=== PATIENT | female | born 1950 ===

== ENCOUNTER 2021-06-01 16:05 | Inpatient (IN) | payer MEDICARE, SELFPAY ==
[2021-06-01] VITALS (13 sets, daily range): BP systolic 101–136; BP diastolic 66–81; PULSE 51–72; RESP 20–22; TEMP 35.7–36; O2SAT 86–98; BMI 38.5
--- NOTE | ~2021-06-01 | XR_ITS ---
XR chest 1V portable DATE: 06/20/2021 10:22 INDICATION: XR chest 1V portable DATE: 06/20/2021 10:22 INDICATION: Respiratory failure TECHNIQUE: Portable AP chest on 06/20/2021 at 1015 hours COMPARISON: 06/19/2021 portable AP chest at 0518 hours FINDINGS: ET tube in satisfactory position 3.6 cm above rosina. Extensive bilateral pulmonary infiltrates persist, most prominent in the right upper lobe, left mid a nd left lower lung and right lung base, with persistent air bronchograms in the lower lobes, especial ly on the left. No pleural effusion or pneumothorax is evident. Status post cholecystectomy. Diffuse osteopenia. IMPRESSION: Extensive patchy bilateral pulmonary infiltrates persist relatively unchanged since 06/29 Reviewed, dictated and finalized at [facility]. Reviewed, dictated and finalized at location A. IMPRESSION: Extensive patchy bilateral pulmonary infiltrates persist relatively unchanged since 06/29/2021
--- NOTE | ~2021-06-01 | XR_ITS ---
XR chest 1V portable 06/03/2021 09:33 Indication: Pneumonia. Respiratory distress. Procedure: AP portable chest Comparison: Comparison to multiple prior studies sequentially, with oldest reviewed study dated 06/01. Findings: Endotracheal tube tip 5.1 cm above the rosina. NG tube in the stomach. No significant alexis e to bilateral airspace disease, compatible with pneumonia. No pleural effusion or pneumothorax. PICC line tip in the SVC. No acute osseous abnormality. Impression: 1: No significant change to bilateral airspace disease, compatible with pneumonia. Reviewed, dictated and finalized at location A. Impression: 1: No significant change to bilateral airspace disease, compatible with pneumon ia.
--- NOTE | ~2021-06-01 | XR_ITS ---
EXAMINATION: XR chest 1V portable DATE: 06/21/2021 23:41 INDICATION: COVID-19 pneumonia. TECHNIQUE: A single frontal view of the chest was obtained. COMPARISON: Chest single view at 6:49 PM, 10:09 AM FINDINGS: Lung volumes are small. Again seen is relative elevation of right hemidiaphragm. There are airspace and interstitial opacities in all lung zones bilaterally. No pleural effusion or pneumothora x. The heart size is normal. The endotracheal tube tip is 9 mm above the rosina. A left upper extremi ty peripherally inserted central venous catheter (PICC) is seen with tip in left brachiocephalic vein . IMPRESSION: 1. Diffuse lung disease, likely stable given the difference in patient positioning, consistent with p neumonia versus acute respiratory distress syndrome (ARDS). 2. Endotracheal tube tip 9 mm above the rosina. 3. PICC tip in left brachiocephalic vein. Reviewed, dictated and finalized at location A. IMPRESSION: 1. Diffuse lung disease, likely stable given the difference in patient position ing, consistent with pneumonia versus acute respiratory distress syndrome (ARDS ). 2. Endotracheal tube tip 9 mm above the rosina. 3. PICC tip in left brachiocephalic vein.
--- NOTE | ~2021-06-01 | XR_ITS ---
XR abdomen NG/feed tube rechec INDICATION: Evaluate NG tube position. TECHNIQUE: Limited KUB perform for evaluating NG tube . COMPARISON: 06/01/2021 FINDINGS: NG tube tip in the stomach. Visualized bowel gas pattern is unremarkable.There are cholecy stectomy clips. There is bilateral airspace disease, compatible with pneumonia. IMPRESSION: 1: NG tube tip in the stomach. Reviewed, dictated and finalized at location A.
--- NOTE | ~2021-06-01 | US_ITS ---
EXAMINATION: US abdomen limited EXAM DATE: 06/02/2021 10:59 INDICATION: Elevated liver function tests. TECHNIQUE: Multiple grayscale and Doppler images of the abdomen right upper quadrant were obtained (b y a technologist who performed the scan) and subsequently reviewed. There is no prior study for rosas marti. FINDINGS: The pancreatic head and body are normal in appearance. The pancreatic tail is not visualized. There is echogenic liver parenchyma, hepatic steatosis. There are no focal liver lesions identified. Th ere is no evidence of intrahepatic biliary duct dilation. Portal venous flow was seen in the hepatop edal, normal direction and has normal Doppler waveform. No right-sided hydronephrosis. Common bile duct measures 4 mm, which is normal. The gallbladder fossa is unremarkable. IMPRESSION: 1. Hepatic steatosis. Reviewed, dictated and finalized at location B. IMPRESSION: 1. Hepatic steatosis.
--- NOTE | ~2021-06-01 | XR_ITS ---
EXAMINATION: XR chest 1V portable, XR abdomen obstructive series DATE: 06/10/2021 08:50 INDICATION: Abdominal distention. Respiratory failure. TECHNIQUE: 1. AP view of the chest was obtained. 2. AP supine and upright views of the abdomen and pelvis were obtained. COMPARISON: Chest radiograph dated 06/09/2021 FINDINGS: Chest: Endotracheal tube tip .9 cm above the rosina. Right upper extremity peripherally inserted central wesley ous catheter (PICC) tip at the brachiocephalic vein. Elevation of the right hemidiaphragm. No significant interval change in airspace opacities throughout the left lung and right upper lobe. No pleural effusion or pneumothorax. The cardiomediastinal silho uette is normal. Abdomen: Nasogastric tube with tip in proximal side port in the body of the stomach. Cholecystectomy clips in the right upper quadrant. Additional surgical clips in the deep pelvis. Moderate amount of gas and sm all amount of stool scattered throughout the colon. No dilated gas-filled small bowel to suggest obst ruction. No free intraperitoneal gas. IMPRESSION: 1. Lines and tubes in expected position as detailed above. 2. No significant change in bilateral lung disease consistent with pneumonia. Reviewed, dictated and finalized at location A. IMPRESSION: 1. Lines and tubes in expected position as detailed above. 2. No significant change in bilateral lung disease consistent with pneumonia.
--- NOTE | ~2021-06-01 | XR_ITS ---
EXAMINATION: XR chest 1V portable DATE: 06/08/2021 09:40 INDICATION: COVID pneumonia TECHNIQUE: frontal view of the chest was obtained. COMPARISON: Chest radiograph dated 06/07/2021 FINDINGS: Endotracheal tube tip 5.5 cm above the rosina. Right upper extremity peripherally inserted central ve nous catheter (PICC) tip at the right brachiocephalic vein. Chronic elevation of the right hemidiaphragm. Persistent airspace opacities in the left mid to lower lung zone and throughout the right upper lobe extending to the minor fissure. No pleural effusion or pneumothorax. The cardiomediastinal silhouette is normal. IMPRESSION: 1. Persistent bilateral lung disease consistent with pneumonia. Reviewed, dictated and finalized at location A.
--- NOTE | ~2021-06-01 | XR_ITS ---
XR chest 1V portable DATE: 06/19/2021 05:44 INDICATION: Respiratory failure TECHNIQUE: Portable AP chest on 06/29/2021 at 0518 hours COMPARISON: 06/30/2021 portable AP chest at 0805 hours FINDINGS: There are diffuse extensive bilateral pulmonary infiltrates with suggestion of mild improve ment since 06/18/2021. ET tube in satisfactory position 4.3 cm above rosina. Right upper extremity PIC catheter tip is situated near the confluence of the brachiocephalic veins. Surgical clips, right upper quadrant, consistent with cholecystectomy. IMPRESSION: Diffuse extensive bilateral pulmonary infiltrates, with suggestion of mild improvement si nce 06/2021 Reviewed, dictated and finalized at location A. IMPRESSION: Diffuse extensive bilateral pulmonary infiltrates, with suggestion of mild improvement since 06/2021
--- NOTE | ~2021-06-01 | XR_ITS ---
EXAMINATION: XR chest 1V portable DATE: 06/09/2021 08:54 INDICATION: Respiratory failure. TECHNIQUE: frontal view of the chest was obtained. COMPARISON: Chest radiograph dated 06/08/2021 FINDINGS: Endotracheal tube tip 6.2 cm above the rosina. Nasogastric tube with proximal side-port in the body o f the stomach and with distal tip collimated below the inferior margin of the field of imaging. Right upper extremity peripherally inserted central venous catheter (PICC) tip at the right brachiocephal ic vein. Elevation the right hemidiaphragm with decreased right lung volume. No significant change in bilatera l airspace opacities most prominent in the right upper lobe and left mid and lower lung zones. No ple ural effusion or pneumothorax. The cardiomediastinal silhouette is normal. Cholecystectomy clips in r ight upper quadrant. IMPRESSION: 1. No significant change in bilateral lung disease consistent with pneumonia. Reviewed, dictated and finalized at location A.
--- NOTE | ~2021-06-01 | XR_ITS ---
EXAMINATION: XR chest 1V portable DATE: 06/18/2021 08:11 INDICATION: Respiratory failure TECHNIQUE: frontal view of the chest was obtained. COMPARISON: Chest radiograph dated 06/17/21 FINDINGS: Endotracheal tube tip 6.1 cm above the rosina. Right upper extremity peripherally inserted central ve nous catheter (PICC) tip at the cephalad-most superior vena cava. No significant change in patchy airspace opacities throughout both lungs with right upper and left mi d and lower lung predominance. No pleural effusion or pneumothorax. Interval decrease in a now minima l amount of pneumomediastinum. Cardiomegaly. Cholecystectomy clips in right upper quadrant. IMPRESSION: 1. Unchanged extensive patchy bilateral lung disease consistent with COVID pneumonia. 2. Cardiomegaly. 2.. Decrease in now minimal pneumomediastinum. Reviewed, dictated and finalized at location D. IMPRESSION: 1. Unchanged extensive patchy bilateral lung disease consistent with COVID pneu monia. 2. Cardiomegaly. 2.. Decrease in now minimal pneumomediastinum.
--- NOTE | ~2021-06-01 | XR_ITS ---
EXAMINATION: XR chest 1V portable EXAM DATE: 06/05/2021 05:30 INDICATION: COVID PNA, intubated . TECHNIQUE: Portable AP frontal chest x-ray was obtained. Comparison is made to prior examination from 06/04/2021, 06/03, 06/02. FINDINGS: Endotracheal tube tip is 4-5 centimeters above the rosina. There is a nasogastric tube see n with tip collimated off the study, but below the left hemidiaphragm. Right-sided PICC line projecti ng over the SVC at the level of the rosina. There is diffuse bilateral pneumonia and/or edema, appears to be slowly progressing over the last sev eral days. There are no sizable pleural effusions. There is no pneumothorax suspected. The cardi omediastinal silhouette is prominent but magnified on this AP technique. The bones and soft tissues are unremarkable. IMPRESSION: 1. Line and tube(s) in position. 2. Diffuse airspace disease with mild interval progression. Reviewed, dictated and finalized at location A.
--- NOTE | ~2021-06-01 | XR_ITS ---
XR chest 1V portable DATE: 06/15/2021 05:39 INDICATION: Respiratory failure, Covid pneumonia TECHNIQUE: Portable upright AP chest on 06/15/2021 at 0508 hours COMPARISON: 06/14/2021 portable AP chest at 0820 hours FINDINGS: Extensive bilateral pulmonary infiltrates persist, relatively stable since yesterday. ET tube approximately 5.2 cm above rosina. NG tube in stomach. Right upper extremity PIC catheter tip situated in the right brachiocephalic vein near the proximal superior vena cava. Status post cholecystectomy. IMPRESSION: Extensive bilateral pulmonary infiltrates, not significantly changed since yesterday Reviewed, dictated and finalized at location A. IMPRESSION: Extensive bilateral pulmonary infiltrates, not significantly change d since yesterday
--- NOTE | ~2021-06-01 | XR_ITS ---
XR chest 1V portable DATE: 06/16/2021 13:23 INDICATION: Respiratory failure TECHNIQUE: Portable AP chest on 06/16/2021 at 1317 hours COMPARISON: 06/15/2021 portable AP chest at 0508 hours FINDINGS: ET tube is 8.1 cm above the rosina. [place] range is 2-5 cm. There are extensive patchy infiltrates scattered throughout both lungs, likely due to COVID pneumonia . Heart size appears normal. No pneumothorax. Status post cholecystectomy. IMPRESSION: Extensive relatively stable bilateral pulmonary infiltrates since 06/15/2021, consistent w ith COVID pneumonia ET tube tip is 8.1 cm above rosina; ideal range is 2-5 cm Reviewed, dictated and finalized at location A. IMPRESSION: Extensive relatively stable bilateral pulmonary infiltrates since 1 , consistent with COVID pneumonia ET tube tip is 8.1 cm above rosina; ideal range is 2-5 cm
--- NOTE | ~2021-06-01 | XR_ITS ---
EXAMINATION: XR chest 1V portable DATE: 06/17/2021 11:11 INDICATION: Respiratory failure TECHNIQUE: frontal view of the chest was obtained. COMPARISON: Chest radiograph dated 06/16/2021 FINDINGS: Endotracheal tube tip 7.2 cm above the rosina. Right upper extremity peripherally inserted central ve nous catheter (PICC) tip at the cephalad-most superior vena cava. Again seen are patchy airspace opacities throughout both lungs with right upper and left mid and lowe r lung predominance. No pleural effusion or pneumothorax. There has however been interval development of pneumomediastinum which extends cephalad into the neck on either side of the trachea. Borderline heart size accounting for AP technique. Cholecystectomy clips in right upper quadrant. IMPRESSION: 1. Interval development of pneumomediastinum which tracks into the neck. No evident pneumothorax. Fin dings were discussed with Mary, the nurse caring for the patient, at 11:55 AM. 2. Persistent extensive patchy bilateral lung disease consistent with COVID pneumonia. 3. Borderline heart size. Reviewed, dictated and finalized at location B. IMPRESSION: 1. Interval development of pneumomediastinum which tracks into the neck. No jeni dent pneumothorax. Findings were discussed with Mary, the nurse caring for th e patient, at 11:55 AM. 2. Persistent extensive patchy bilateral lung disease consistent with COVID pne umonia. 3. Borderline heart size.
--- NOTE | ~2021-06-01 | XR_ITS ---
EXAMINATION: XR chest PICC line DATE: 06/21/2021 19:10 INDICATION: Central line placement. TECHNIQUE: A single frontal view of the chest was obtained on 2 radiographs. COMPARISON: Chest single view at 10:09 AM FINDINGS: There is mild elevation of right hemidiaphragm. There are patchy airspace opacities in all lung zones bilaterally. No pleural effusion or pneumothorax. The heart size is normal. The endotrache al tube tip is 6 mm above the rosina. A left upper extremity peripherally inserted central venous cat heter (PICC) is seen with tip in the superior vena cava. IMPRESSION: 1. PICC tip in superior vena cava. 2. Endotracheal tube tip 6 mm above the rosina. I discussed this finding with the patient's nurse. 3. Worsened diffuse lung disease, consistent with pneumonia versus acute respiratory distress syndrom e (ARDS). Reviewed, dictated and finalized at location A. IMPRESSION: 1. PICC tip in superior vena cava. 2. Endotracheal tube tip 6 mm above the rosina. I discussed this finding with t he patient's nurse. 3. Worsened diffuse lung disease, consistent with pneumonia versus acute respir atory distress syndrome (ARDS).
--- NOTE | ~2021-06-01 | CT_ITS ---
EXAMINATION: CTA chest PE protocol EXAM DATE: 06/15/2021 17:26 INDICATION: Hypoxia TECHNIQUE: Spiral CTA of the chest (pulmonary arteries) was performed with 100 cc Omnipaque 350 intr avenous contrast injection. Images were acquired during the pulmonary arterial phase. Coronal maxi mum intensity projection 3D-reconstructions were created by the technologist on dedicated workstation . Axial, coronal and sagittal reformatted images were reviewed. The dose-length product (DLP) for t his examination was 935.49 mGy-cm. The exposure was tailored according to patient size (auto mA exp osure control), and iterative reconstruction (ASIR) was used as additional dose reduction technique. There is no prior study for comparison. FINDINGS: Endotracheal tube, right-sided PICC line in position. Gastrostomy tube. Pulmonary arteries are well opacified and without intraluminal filling defects. No thoracic aortic dissection. Diffus e airspace disease consistent with COVID pneumonia with more confluence at the dependent posterior as pects. There are no pleural or pericardial effusions. Tracheobronchial tree is patent. There is no mediastinal, hilar or axillary lymphadenopathy. There is no pneumothorax. There is cardiomegal y. There is mild coronary arterial calcification, arterial sclerosis. There are cholecystectomy cli ps. There is thoracic spondylosis without osteoblastic or osteolytic lesions identified. IMPRESSION: 1. Diffuse COVID pneumonia, more confluence posteriorly. 2. Cardiomegaly. 3. No pulmonary emboli. Reviewed, dictated and finalized at location A.
--- NOTE | ~2021-06-01 | XR_ITS ---
XR abdomen NG/feed tube insert INDICATION: Evaluate position. TECHNIQUE: Limited KUB perform for evaluating NG tube . COMPARISON: No prior studies for comparison. FINDINGS: NG tube tip in the stomach. Visualized bowel gas pattern is unremarkable. IMPRESSION: 1: NG tube tip in the stomach. Reviewed, dictated and finalized at location A.
--- NOTE | ~2021-06-01 | XR_ITS ---
EXAMINATION: XR chest 1V portable EXAM DATE: 06/07/2021 12:06 INDICATION: COVID pneumonia. Respiratory failure. TECHNIQUE: Portable AP frontal chest x-ray was obtained. Comparison is made to prior examination from 06/06 FINDINGS: Endotracheal tube tip is 5 centimeters above the rosina. There is a nasogastric tube seen with tip collimated off the study, but below the left hemidiaphragm. Right-sided PICC line projecting over the brachiocephalic confluence. There is diffuse bilateral pneumonia and/or edema, stable. There are no sizable pleural effusions. There is no pneumothorax suspected. The cardiomediastinal silhouette is prominent but magnified on this AP technique. The bones and soft tissues are unremarkable. IMPRESSION: 1. Right PICC line has retracted with tip now at brachiocephalic confluence. 2. Diffuse airspace disease, unchanged. Reviewed, dictated and finalized at location A.
--- NOTE | ~2021-06-01 | XR_ITS ---
XR chest 1V portable 06/04/2021 09:56 Indication: CovidPneumonia. Intubation. Procedure: AP portable chest Comparison: Comparison to multiple prior studies sequentially, with oldest reviewed study date2020. Findings: Endotracheal tube tip 4.4 cm above the rosina. NG tube in the stomach. There is bilateral a irspace disease, compatible with pneumonia. Findings have progressed since 06/02/2021. No significant effusion or pneumothorax. PICC line tip in the SVC. Impression: 1: Progression of bilateral airspace disease, compatible with pneumonia Reviewed, dictated and finalized at location A. Impression: 1: Progression of bilateral airspace disease, compatible with pneumonia
--- NOTE | ~2021-06-01 | US_ITS ---
EXAMINATION: US venous doppler [facility] DATE: 06/14/2021 12:39 INDICATION: Lower limb edema. TECHNIQUE: Grayscale ultrasound images without and with compression and Doppler ultrasound images of the bilateral lower extremity veins were obtained. COMPARISON: None. FINDINGS: The visualized portions of right common femoral vein, profunda (deep) femoral vein, femoral vein, pop liteal vein, peroneal veins, posterior tibial veins, and greater saphenous vein outflow are patent. The visualized portions of left common femoral vein, profunda femoral vein, femoral vein, popliteal v ein, peroneal veins, posterior tibial veins, and greater saphenous vein outflow are patent. IMPRESSION: 1. No deep venous thrombosis. Reviewed, dictated and finalized at location A.
--- NOTE | ~2021-06-01 | XR_ITS ---
XR chest 1V portable DATE: 06/21/2021 10:20 INDICATION: Covid pneumonia TECHNIQUE: AP portable chest on 06/21/2021 at 1014 hours COMPARISON: 06/20/2021 portable AP chest at 1015 hours FINDINGS: ET tube tip 2 cm above rosina. Persistent relatively stable bilateral pulmonary infiltrates involving particularly the right upper l obe, right lung base, left perihilar area and most prominently the left lower lobe with numerous air bronchograms. No pleural effusion or pneumothorax. Status post cholecystectomy. IMPRESSION: No significant change of extensive bilateral pulmonary infiltrates since 06/20/2021 Reviewed, dictated and finalized at location B.
--- NOTE | ~2021-06-01 | XR_ITS ---
EXAMINATION: XR chest 1V portable EXAM DATE: 06/06/2021 09:32 INDICATION: COVID PNA, intubated . TECHNIQUE: Portable AP frontal chest x-ray was obtained. Comparison is made to prior examination from 06/04, 06/05 FINDINGS: Endotracheal tube tip is 4 centimeters above the rosina. There is a nasogastric tube seen with tip collimated off the study, but below the left hemidiaphragm. Right-sided PICC line projecting over the SVC at the level of the rosina. There is diffuse bilateral pneumonia and/or edema, stable. There are no sizable pleural effusions. There is no pneumothorax suspected. The cardiomediastinal silhouette is prominent but magnified on this AP technique. The bones and soft tissues are unremarkable. IMPRESSION: 1. Line and tube(s) in position. 2. Diffuse airspace disease, stable. Reviewed, dictated and finalized at location A.
--- NOTE | ~2021-06-01 | XR_ITS ---
XR chest ET placement 06/01/2021 16:22 Indication: CovidPneumonia. Endotracheal tube check. Procedure: AP portable chest Comparison: No prior studies Findings: Endotracheal tube tip 2.3 cm above the rosina. There is bilateral airspace disease, compati ble with pneumonia. No significant effusion. No pneumothorax. Borderline heart size. No pneumothorax. Impression: 1: Extensive bilateral airspace disease, compatible with pneumonia. Reviewed, dictated and finalized at location A. Impression: 1: Extensive bilateral airspace disease, compatible with pneumonia.
--- NOTE | ~2021-06-01 | US_ITS ---
EXAMINATION: US art doppler w press [facility] EXAM DATE: 06/14/2021 15:17 INDICATION: Dusky toes. Hypertension. TECHNIQUE: Segmental pressures and plethysmographic and Doppler waveforms of the brachial and lower e xtremity arteries were obtained. There is no prior study for comparison. FINDINGS: Right and left brachial artery pressures of 126 mm Hg and 131 mm Hg, respectively, are concordant (no rmal difference <= 30 mmHg). Attempts were made at obtaining high cuff Doppler ratios but unable to p erform notation made due to body habitus and limited range of motion. RIGHT LEG: The ankle-brachial index (MATHEUS) is 1.10 (normal >= 0.9-1). The great toe-brachial index (TBI) is 0.42 (normal >= 0.65). The lower extremity ratios, segmental pressure gradients as follows; Dorsalis pedis: 1.10 (144 mmHg). Posterior tibial: 1.06 (139 mmHg). (Normal gradients <= 20-30 mmHg between adjacent levels on the same leg or the same levels on the two legs). Arterial waveforms are biphasic. LEFT LEG: The ankle-brachial index (MATHEUS) is 1.15 (normal >= 0.9-1). The great toe-brachial index (TBI) is 1.00 (normal >= 0.65). The lower extremity ratios, segmental pressure gradients as follows; Dorsalis pedis: 1.15 (151 mmHg). Posterior tibial: 1.12 (147 mmHg). (Normal gradients <= 20-30 mmHg between adjacent levels on the same leg or the same levels on the two legs). Arterial waveforms are monophasic PT, otherwise biphasic. IMPRESSION: 1. Right ankle-brachial index 1.10, normal. 2. Left ankle-brachial index 1.15, normal. 3. Segmental pressures as above. Reviewed, dictated and finalized at location A.
--- NOTE | ~2021-06-01 | XR_ITS ---
EXAMINATION: XR chest 1V portable DATE: 06/11/2021 10:08 INDICATION: Respiratory failure TECHNIQUE: frontal view of the chest was obtained. COMPARISON: Chest radiograph dated 06/10/2021 FINDINGS: Endotracheal tube tip 5.2 cm above the rosnia. Nasogastric tube extends below the left hemidiaphragm with distal tip collimated off the study. Right upper extremity peripherally inserted central venous catheter (PICC) tip at the right brachiocephalic vein. Again seen is elevation of the right hemidiaphragm. No significant interval change in bilateral airsp nash opacities relatively sparing the right lower and left upper lung zones. No pleural effusion or pn eumothorax. The cardiomediastinal silhouette is normal. Cholecystectomy clips in right upper quadrant . IMPRESSION: 1. No interval change in bilateral lung disease consistent with pneumonia. Reviewed, dictated and finalized at location A.
--- NOTE | ~2021-06-01 | XR_ITS ---
EXAMINATION: XR chest 1V portable DATE: 06/02/2021 09:11 INDICATION: COVID-19 pneumonia. TECHNIQUE: A single frontal view of the chest was obtained. COMPARISON: Chest single view 06/01/2021 FINDINGS: There are airspace opacities in all lung zones bilaterally, worst in right upper lobe and a t left lung base. No pleural effusion or pneumothorax. The heart size is normal. The endotracheal tub e tip is 5.4 cm above the rosina. A right upper extremity peripherally inserted central venous cathet er (PICC) is seen with tip in the superior vena cava. The nasogastric tube tip is beyond the inferior margin of the radiograph, but at least to the stomach. Surgical clips in the right upper quadrant ar e likely from cholecystectomy. IMPRESSION: 1. Stable diffuse lung disease, consistent with pneumonia. Reviewed, dictated and finalized at location A.
--- NOTE | ~2021-06-01 | XR_ITS ---
XR chest 1V portable 06/12/2021 09:22 Indication: Respiratory failure Procedure: AP portable chest Comparison: Comparison to multiple prior studies sequentially, with oldest reviewed study dated 06/08. Findings: Endotracheal tube tip 5.3 cm above the rosina. NG tube in the stomach. There is unchanged d iffuse bilateral airspace disease. No significant effusion or pneumothorax. Right subclavian PICC scotty e tip in the brachiocephalic vein. Impression: 1: Persistent diffuse bilateral airspace disease, most likely pneumonia. Edema less favored. Reviewed, dictated and finalized at location A. Impression: 1: Persistent diffuse bilateral airspace disease, most likely pneumonia. Edema less favored.
--- NOTE | ~2021-06-01 | XR_ITS ---
EXAMINATION: XR chest PICC line DATE: 06/01/2021 18:57 INDICATION: PICC line placement TECHNIQUE: frontal view of the chest was obtained. COMPARISON: Chest radiograph dated 06/01/2021 FINDINGS: Right upper extremity peripherally inserted central venous catheter (PICC) tip at the superior cavoa trial junction. Endotracheal tube tip 2.7 cm above the rosina. Nasogastric tube tip in proximal side port in the body of the stomach. Elevation the right hemidiaphragm. Unchanged airspace opacities in the right mid to upper and left mi d to lower lung zones. No pneumothorax. The cardiomediastinal silhouette is within normal limits for AP technique. Cholecystectomy clips in right upper quadrant. IMPRESSION: 1. Right M the PICC line tip at the superior cavoatrial junction. 2. Unchanged extensive bilateral airspace disease consistent with pneumonia. Reviewed, dictated and finalized at location A.
--- NOTE | ~2021-06-01 | XR_ITS ---
XR chest 1V portable DATE: 06/14/2021 08:28 INDICATION: Acute respiratory failure. Covid pneumonia. TECHNIQUE: Portable AP chest on 06/2021 at 0820 hours COMPARISON: 06/12/2021 portable AP chest at 0910 hours FINDINGS: ET tube in satisfactory position 3.6 cm above rosina. NG tube noted passing into stomach, d istal portion beyond the margin of the radiograph. Right upper extremity PIC catheter tip overlies the very proximal superior vena cava. Extensive patchy bilateral consolidation throughout both lungs, increased in severity since 06/12/2021 . IMPRESSION: Extensive patchy bilateral pulmonary consolidating infiltrates, increased in severity sin ce 06/12 Satisfactory position of ET tube Reviewed, dictated and finalized at location A. IMPRESSION: Extensive patchy bilateral pulmonary consolidating infiltrates, inc reased in severity since 06/12 Satisfactory position of ET tube
--- NOTE | 2021-06-01 16:21 | ADMGEN ---
This patient, Elizabeth Britt, was admitted to Intensive Care Unit-4. Patient/family oriented to hospital policies and general routines including ID bracelet, bed and alarms, visiting hours, pain management, procedures, bathroom and other care routines, personal items, smoking policy, room service/diet, and visiting hours. Information on how to activate the Rapid Response Team has been discussed. Patient/Family are encouraged to report perceived risks to care and to ask questions if they do not understand what they are told or what they should do.
--- NOTE | 2021-06-01 16:30 | PM.IMHP ---
H&P: HPI History of Present Illness Date/Time: 06/01/21 16:30 Chief Complaint: Acute respiratory failure secondary to COVID pneumonia. Narrative: This is a 70-year-old female with hypertension, hypothyroidism, breast cancer, and anxiety who is being directly admitted to the intensive care unit from [facility] for further treatment of acute hypoxic respiratory failure secondary to COVID-19 pneumonia. She is currently sedated and intubated and as such all of the following information is obtained via a review of her electronic medical records as well as discussions with her . She was admitted to the outside facility on 05/29/2021 after presenting with a ?COVID like illness? for nearly 3 weeks time with symptoms to include nonproductive cough and body aches. Several days prior to admission her symptoms worsen with progressive shortness of breath and the development of a fever up to 102? F. She was hypoxic on arrival to the emergency department and was found to have extensive pneumonia consistent with COVID [address] which was negative for pulmonary embolism. AST, ALT, and CPK were all elevated on admission at 254, 117, and 3171 respectively with the rest of her labs being relatively unremarkable. The patient was admitted to the medical floor and was started on azithromycin, dexamethasone, remdesivir, and IV fluids. Baricitinib was added yesterday given rapidly increasing oxygen requirements; she was requiring 9 L nasal cannula on admission but was switched to Airvo the following morning and a non-rebreather was added to that yesterday. She could not tolerate prone positioning but seemed to do better when lying on her side. Today she appeared to be fatigued and she was started on BiPAP at 100% FiO2 prior to initiation of transfer. Her IV fluids were discontinued yesterday and she was given a dose of IV Lasix today. [place] is about [place] hour drive from this hospital and given her condition the panel lay up worker felt it would be most appropriate to intubate the patient prior to transfer and she arrived to our facility without incident. While transferring from the stretcher to the bed she did have an episode of desaturation into the high 70s but rebounded quickly. Her temperature on arrival today was 96.3, pulse has been in the mid to upper 50s, and her blood pressures have been stable while sedated with propofol. The patient's was also hospitalized with COVID however he has been discharged and is recovering. She did not receive the COVID vaccine. Review of Systems Review of Systems: Unable to obtain given current clinical condition as above. [facility] Past Medical History Medical History (Updated 06/01/21 @ 18:13 by Selene Dubose PA-C) Anxiety and depression Breast cancer Hypertension Hypothyroidism Surgical History Surgical History (Updated 06/01/21 @ 17:34 by Selene Dubose PA-C) History of cholecystectomy History of lumpectomy of both breasts History of shoulder surgery History of tubal ligation Family History Family History (Updated 06/01/21 @ 17:34 by Selene Dubose PA-C) Other Cancer Heart disease Hypertension Social History Social History (Updated 06/01/21 @ 17:36 by Selene Dubose PA-C) Social History: The patient lives in [place], [place]. She is a former smoker and quit in 2003. No mention of alcohol or illicit substance use. Her , Cheyanne Britt, is her surrogate decision maker. Code status: Full code. Meds Home Medications and Allergies Home Medications Medication Instructions Recorded Confirmed Type levothyroxine 25 mcg PO DAILY 06/01/21 06/01/21 History lisinopril-hydrochlorothiazide 1 tablet PO DAILY 06/01/21 06/01/21 History sertraline 100 mg PO DAILY 06/01/21 06/01/21 History Allergies Allergy/AdvReac Type Severity Reaction Status Date / Time codeine Allergy Unknown Verified 06/01/21 16:18 latex Allergy Unknown Verified 06/01/21 16:18 morphine Aller
[2021-06-01 16:48] LABS: Alveolar/Arterial O2 Gradient 616.9 mmHg; Base Excess ABG 1.8 mEq/l (+/-2.0); Carboxyhemoglobin 0.3 % THb (0-2.0); Fractional Inspired Oxygen 100 %; Methemoglobin ABG 0.3 %THb (0-1.5); Oxygen Content ABG 17.8 %vol (16.0-22.0); Oxygen Saturation ABG 94.9 % (95.0-100.0); Oxyhemoglobin 92.5 % THb (90.0-100.0); PCO2 ABG 30.5 mmHg (35.0-45.0); PO2 ABG 65.6 mmHg (80.0-100.0); PO2 FiO2 Ratio Arterial Blood 0.66 %; Reduced Hemoglobin 6.9 %THb (0-5.0); Total Hemoglobin 13.7 g/dL (12.0-18.0)
[2021-06-01 17:00] LABS: Basophils Percent Auto 0.1 % (0.2-1.2); Hematocrit 36.7 % (37.0-47.0); Hemoglobin 12.5 g/dL (12.0-15.0); Immature Granulocyte Absolute 0.08 K/mm3 (0.00-0.031); Immature Granulocyte Percent A 1.1 % (0-0.5); Lymphocytes Absolute Auto 0.78 K/mm3 (0.9-3.2); Lymphocytes Percent Auto 11.1 % (18.3-44.2); Mean Corpuscular HGB Conc 34.1 g/dl (32-36); Mean Corpuscular Hemoglobin 29.9 pg (26-34); Mean Corpuscular Volume 87.8 fl (80-100); Mean Platelet Volume 10.2 fl (7.4-10.4); Monocytes Absolute Auto 0.4 K/mm3 (0.1-0.6); Monocytes Percent Auto 5.3 % (2.6-8.5); Neutrophils Absolute Auto 5.8 K/mm3 (1.3-6.7); Neutrophils Percent Auto 82.4 % (45.5-73.1); Platelet Count Result 245 k/mm3 (150-375); Red Blood Count 4.18 M/mm3 (4.2-5.4); Red Cell Distribution Width 12.9 % (11.5-14.5)
[2021-06-01 17:20] LABS: INR 1.1; Prothrombin Time 13.6 Seconds (11.1-14.7)
[2021-06-01 17:26] LABS: Alanine Aminotransferase 148 U/L (4-35); Albumin Level 3.3 g/dL (3.5-5.1); Alkaline Phosphatase 45 U/L (38-126); Anion Gap 4 mmol/L (8-16); Aspartate Amino Transferase 168 U/L (14-36); Bilirubin,Total 0.9 mg/dL (0.2-1.3); Blood Urea Nitrogen 25 mg/dL (7-17); CRP 2.6 mg/dL (<1.0); Calcium 8.3 mg/dL (8.4-10.2); Carbon Dioxide 31 mmol/L (22-30); Chloride 107 mmol/L (98-107); Estimated CRCL calculation 88 ml/min; Estimated Glomerular Filt Rate > 60; Glucose 145 mg/dL (65-110); Potassium 3.5 mmol/L (3.4-5.0); Sodium 142 mmol/L (137-145)
[2021-06-01 17:30] LABS: Lactate Dehydrogenase 2566 U/L (313-618)
[2021-06-01] MEDS: FENTANYL 2,500MCG/NS250ML(*CRX 2,500 MCG/250 ML BAG IV CONT (17:30)
[2021-06-01] MEDS: PROPOFOL IV EMULSION 100 ML 21.36 MG IV CONT (17:31)
[2021-06-01 17:34] LABS: Lactic Acid Reflex 1.4 mmol/L (0.7-2.1)
[2021-06-01 17:46] LABS: Triglycerides 149 mg/dL (<150)
[2021-06-01 17:49] LABS: pH ABG 7.513 (7.350-7.450)
[2021-06-01 17:50] LABS: Device VENTILATOR; Modified Allen's Test Unable to perform; Site Drawn RIGHT RADIAL
[2021-06-01 17:51] LABS: Arterial Blood Gas PEEP 10 cmH2O; Arterial Blood Gas Tidal Volume 450 ml; Arterial Blood Gas Vent Mode CMV; Arterial Blood Gas Ventilator rate 12 /MIN
[2021-06-01 18:01] LABS: Creatine Kinase 820 U/L (30-135)
--- NOTE | 2021-06-01 18:16 | ECG_ITS ---
Measurements Intervals [place] Rate: 52 P: 28 OR: 167 QRS: 18 QRSD: 86 T: 88 QT: 437 QTc: 407 Interpretive Statements SINUS BRADYCARDIA INCOMPLETE RIGHT BUNDLE BRANCH BLOCK CONSIDER INFERIOR INFARCT, AGE INDETERMINATE BORDERLINE T WAVE ABNORMALITY- HIGH LATERAL LEADS BASELINE ARTIFACT- I, II, III, AVR, AVF ABNORMAL ECG Electronically Signed On 06-01-2021 20:19:41 CDT by Rodney Blanco D.O.
[2021-06-01 18:20] LABS: Procalcitonin 0.1 ng/mL
[2021-06-01 18:31] LABS: Magnesium 2.2 mg/dL (1.6-2.3)
[2021-06-01] MEDS: ROCURONIUM BROMIDE 50 MG/5 ML VIAL IV PUSH (20:26)
[2021-06-01] MEDS: ENOXAPARIN 40 MG/0.4 ML SYRINGE SUB-Q (20:27)
[2021-06-01 21:31] LABS: Hepatitis B Surface Antigen Negative (Negative)
[2021-06-01 21:36] LABS: HAV RESULT Negative (Negative); Hepatitis B Core IgM Result Negative (Negative)
[2021-06-01 21:48] LABS: Hepatitis C Virus Antibody Negative (Negative)
[2021-06-01] MEDS: REMDESIVIR 100 MG/NS 250 ML 100 MG/250 ML BAG 250 MG IVPB (22:27)
[2021-06-01] MEDS: MINERAL OIL/WHITE PETROLATUM OINTMENT 1 APPLIC EACH EYE (22:27)
[2021-06-01] MEDS: CENTRAL LINE FLUSH 10 ML IV PUSH (22:29)
[2021-06-01] MEDS: PROPOFOL IV EMULSION 100 ML 15.26 MG IV CONT (23:15)
[2021-06-02] VITALS (36 sets, daily range): BP systolic 111–157; BP diastolic 63–94; PULSE 55–74; RESP 20–31; TEMP 36.1–37.1; O2SAT 91–100; BMI 39.4
[2021-06-02 01:33] LABS: Add Urine Microscopic? YES; Appearance Urine Clear (Clear); Bilirubin Urine Negative (Negative); Blood Urine 2+ (Negative); Color Urine Yellow (Yellow); Glucose Urine UA Negative (Negative); Ketones Urine Negative (Negative); Leukocyte Esterase Ur Negative LEU/UL (Negative); Mucus Urine Rare /lpf; Nitrate Urine Negative (Negative); Protein Urine 1+ mg/dL (Negative); RBC Urine 21-50 /hpf (0-2); Urobilinogen Urine Negative mg/dL (<2.0)
[2021-06-02 02:35] LABS: Specific Grav Ur 1.034 (1.001-1.035)
[2021-06-02 05:00] LABS: Alveolar/Arterial O2 Gradient 431.3 mmHg; Base Excess ABG 3.7 mEq/l (+/-2.0); Carboxyhemoglobin 0.3 % THb (0-2.0); Fractional Inspired Oxygen 80 %; HCO3 ABG 27.6 mEq/l (22.0-26.0); Methemoglobin ABG 0.3 %THb (0-1.5); Oxygen Content ABG 18.7 %vol (16.0-22.0); Oxygen Saturation ABG 97.8 % (95.0-100.0); Oxyhemoglobin 96.4 % THb (90.0-100.0); PCO2 ABG 39.3 mmHg (35.0-45.0); PO2 ABG 97.8 mmHg (80.0-100.0); PO2 FiO2 Ratio Arterial Blood 1.22 %; Site Drawn LEFT RADIAL; Total Hemoglobin 13.7 g/dL (12.0-18.0); pH ABG 7.464 (7.350-7.450)
[2021-06-02 05:01] LABS: Arterial Blood Gas PEEP 10 cmH2O; Arterial Blood Gas Tidal Volume 330 ml; Arterial Blood Gas Vent Mode CMV; Arterial Blood Gas Ventilator rate 22 /MIN; Device VENTILATOR; Modified Allen's Test Pass
[2021-06-02] MEDS: PROPOFOL IV EMULSION 100 ML 21.36 MG IV CONT (06:03)
[2021-06-02 06:05] LABS: Basophils Percent Auto 0.3 % (0.2-1.2); Hematocrit 40.4 % (37.0-47.0); Hemoglobin 13.3 g/dL (12.0-15.0); Immature Granulocyte Absolute 0.12 K/mm3 (0.00-0.031); Immature Granulocyte Percent A 1.3 % (0-0.5); Lymphocytes Absolute Auto 0.76 K/mm3 (0.9-3.2); Lymphocytes Percent Auto 7.9 % (18.3-44.2); Mean Corpuscular HGB Conc 32.9 g/dl (32-36); Mean Platelet Volume 10.5 fl (7.4-10.4); Monocytes Absolute Auto 0.5 K/mm3 (0.1-0.6); Monocytes Percent Auto 5.1 % (2.6-8.5); Neutrophils Absolute Auto 8.2 K/mm3 (1.3-6.7); Neutrophils Percent Auto 85.4 % (45.5-73.1); Platelet Count Result 258 k/mm3 (150-375); Red Blood Count 4.44 M/mm3 (4.2-5.4); Red Cell Distribution Width 12.9 % (11.5-14.5); White Blood Count 9.6 K/mm3 (4.5-10.0)
[2021-06-02] MEDS: CENTRAL LINE FLUSH 10 ML IV PUSH ×3 (06:05→21:11)
[2021-06-02] MEDS: LEVOTHYROXINE SODIUM INJ 100 MCG/5 ML VIAL 12.5 MCG IV PUSH (06:05)
[2021-06-02 06:14] LABS: INR 1.1; Prothrombin Time 13.8 Seconds (11.1-14.7)
[2021-06-02 06:17] LABS: D Dimer 0.67 ug/mL (<0.48)
[2021-06-02 06:23] LABS: Alanine Aminotransferase 141 U/L (4-35); Albumin Level 3.5 g/dL (3.5-5.1); Alkaline Phosphatase 55 U/L (38-126); Anion Gap 6 mmol/L (8-16); Aspartate Amino Transferase 129 U/L (14-36); Bilirubin,Total 0.9 mg/dL (0.2-1.3); Blood Urea Nitrogen 26 mg/dL (7-17); CRP 2.3 mg/dL (<1.0); Calcium 8.5 mg/dL (8.4-10.2); Carbon Dioxide 32 mmol/L (22-30); Chloride 106 mmol/L (98-107); Estimated CRCL calculation 90 ml/min; Estimated Glomerular Filt Rate > 60; Glucose 138 mg/dL (65-110); Magnesium 2.3 mg/dL (1.6-2.3); Phosphorus 2.7 mg/dL (2.5-4.5); Potassium 3.3 mmol/L (3.4-5.0); Sodium 144 mmol/L (137-145)
[2021-06-02 07:08] LABS: Lactate Dehydrogenase 2067 U/L (313-618)
[2021-06-02 07:55] LABS: Anisocytosis 1+ (NORMAL); Ovalocytes 1+ (NORMAL); Platelet Estimate Adequate (Adequate)
[2021-06-02] MEDS: MINERAL OIL/WHITE PETROLATUM OINTMENT 1 APPLIC EACH EYE ×2 (08:20→21:15)
--- NOTE | 2021-06-02 09:05 | WPDCNINT ---
Assessment and Plan Assessment and plan (1) Acute respiratory failure with hypoxia: Code(s): J96.01 - Acute respiratory failure with hypoxia Status: Acute Assessment and Plan: Secondary to extensive COVID pneumonia. Chest CTA on 05/29/2021 at outside facility was negative for pulmonary embolism. Currently sedated with propofol. Triglyceride level pending. Intubated on 06/01/2021 at outside facility. Currently on a tidal volume of 330, PEEP of 10, rate of 22, and 80% FiO2. A ABG reviewed-increase PEEP to 12 Chest x-ray reviewed Daily prone ventilation as tolerated (2) Pneumonia due to COVID-19 virus: Code(s): U07.1 - COVID-19; J12.82 - Pneumonia due to coronavirus disease 2018 Status: Acute Assessment and Plan: Patient has reportedly had COVID like symptoms for 3 weeks and she tested positive on 05/29/2021. She will complete a 5 day course of azithromycin today. Her procalcitonin was normal Dexamethasone (started 05/29) She will complete a 5 day course of remdesivir today, Continue baricitinib (started 05/31). Monitor inflammatory markers (3) Rhabdomyolysis: Code(s): M62.82 - Rhabdomyolysis Status: Acute Assessment and Plan: Patient was started on IV fluids for CPK of 4471 on admission. Total CK on our analyzer today is 820. Hold further IV fluids at this time to avoid over-hydration. Monitor CK in a.m. (4) Elevated LFTs: Code(s): R79.89 - Other specified abnormal findings of blood chemistry Status: Acute Assessment and Plan: Most likely secondary to COVID-19 +/- rhabdomyolysis. AST and ALT have trended down since admission. Check hepatitis panel and right upper quadrant ultrasound for completeness sake. (5) Hypothyroidism: Code(s): E03.9 - Hypothyroidism, unspecified Status: Acute Assessment and Plan: Continue levothyroxine and check TSH. (6) Hypertension: Code(s): I10 - Essential (primary) hypertension Status: Acute Assessment and Plan: Blood pressures are stable off antihypertensives. (7) Prolonged QT interval: Code(s): R94.31 - Abnormal electrocardiogram [ECG] [EKG] Status: Acute Assessment and Plan: QTc was 577 on EKG done at outside facility 2 days ago. EKG done here showed QTC of 407 Monitor Additional Plan DVT prophylaxis -Lovenox subQ q.12 hours Stress ulcer prophylaxis -at PPI Nutrition -start Tube Feeds Code Status - Full Code Total Critical Care Time - 35 minutes Due to a high probability of clinically significant, life threatening deterioration, the patient required my highest level of preparedness to intervene emergently and I personally spent this critical care time directly and personally managing the patient. This critical care time included obtaining a history; examining the patient; pulse oximetry; ordering and review of studies; arranging urgent treatment with development of a management plan; evaluation of patient's response to treatment; frequent reassessment; and discussions with other providers. It was exclusive of separately billable procedures and treating other patients and teaching time. Please see Assessment and Plan section and the rest of the note for further information on patient assessment and treatment English Tutor Consult Note Consult date: 06/02/21 Time Seen: 08:00 HPI: Elizabeth Britt is a 70 year old female with past medical history of hypertension, hypothyroidism, breast cancer, and anxiety who was directly admitted to the intensive care unit on 06/01 from [facility] for further treatment of acute hypoxic respiratory failure secondary to COVID-19 pneumonia. Patient is not vaccinated for COVID-19. She was admitted to the outside facility on 05/29/2021 after presenting with a ?COVID like illness? for nearly 3 weeks time with symptoms to include nonproductive cough and body aches. Several days prior to admission her sy
[2021-06-02] MEDS: PROPOFOL IV EMULSION 100 ML 24.41 MG IV CONT (09:56)
[2021-06-02] MEDS: POTASSIUM CHLORIDE 20 MEQ PACKET (FOR LIQUID) 40 MEQ FEED TUBE (10:26)
[2021-06-02] MEDS: BARICITINIB 2 MG TABLET 4 MG PO (10:27)
[2021-06-02] MEDS: FENTANYL 2,500MCG/NS250ML(*CRX 2,500 MCG/250 ML BAG IV CONT (10:28)
[2021-06-02 12:18] LABS: Glucose Point of Care 138 mg/dl (65-105)
[2021-06-02] MEDS: PROPOFOL IV EMULSION 100 ML 18.31 MG IV CONT ×2 (13:41→18:47)
[2021-06-02 18:01] LABS: Glucose Point of Care 143 mg/dl (65-105)
[2021-06-02] MEDS: REMDESIVIR 100 MG/NS 250 ML 100 MG/250 ML BAG 250 MG IVPB (21:11)
[2021-06-02] MEDS: ENOXAPARIN 40 MG/0.4 ML SYRINGE SUB-Q (21:15)
[2021-06-02 23:51] LABS: Glucose Point of Care 184 mg/dl (65-105)
[2021-06-03] VITALS (30 sets, daily range): BP systolic 109–137; BP diastolic 62–84; PULSE 55–70; RESP 22–28; TEMP 36.2–37.6; O2SAT 89–98
[2021-06-03] MEDS: PROPOFOL IV EMULSION 100 ML 15.26 MG IV CONT (00:27)
[2021-06-03 04:51] LABS: Alveolar/Arterial O2 Gradient 262.6 mmHg; Base Excess ABG 4.2 mEq/l (+/-2.0); Carboxyhemoglobin 0.3 % THb (0-2.0); Fractional Inspired Oxygen 55 %; HCO3 ABG 30.2 mEq/l (22.0-26.0); Methemoglobin ABG 0.4 %THb (0-1.5); Oxygen Content ABG 17.8 %vol (16.0-22.0); Oxygen Saturation ABG 94.3 % (95.0-100.0); Oxyhemoglobin 92.5 % THb (90.0-100.0); PCO2 ABG 51.1 mmHg (35.0-45.0); PO2 ABG 72.7 mmHg (80.0-100.0); PO2 FiO2 Ratio Arterial Blood 1.32 %; Reduced Hemoglobin 6.8 %THb (0-5.0); Total Hemoglobin 13.7 g/dL (12.0-18.0)
[2021-06-03 04:52] LABS: Arterial Blood Gas Ventilator rate 22 /MIN; Device VENTILATOR; Modified Allen's Test Pass
[2021-06-03 04:53] LABS: Arterial Blood Gas PEEP 12 cmH2O; Arterial Blood Gas Tidal Volume 330 ml; Arterial Blood Gas Vent Mode CMV
[2021-06-03 04:57] LABS: Site Drawn LEFT RADIAL
[2021-06-03] MEDS: CENTRAL LINE FLUSH 10 ML IV PUSH ×3 (05:45→20:38)
[2021-06-03] MEDS: LEVOTHYROXINE SODIUM INJ 100 MCG/5 ML VIAL 12.5 MCG IV PUSH (05:45)
[2021-06-03 05:51] LABS: Basophils Percent Auto 0.2 % (0.2-1.2); Hematocrit 40.3 % (37.0-47.0); Hemoglobin 13.1 g/dL (12.0-15.0); Immature Granulocyte Absolute 0.17 K/mm3 (0.00-0.031); Immature Granulocyte Percent A 1.9 % (0-0.5); Lymphocytes Absolute Auto 0.61 K/mm3 (0.9-3.2); Lymphocytes Percent Auto 6.9 % (18.3-44.2); Mean Corpuscular HGB Conc 32.5 g/dl (32-36); Mean Corpuscular Hemoglobin 30.3 pg (26-34); Mean Corpuscular Volume 93.1 fl (80-100); Mean Platelet Volume 10.6 fl (7.4-10.4); Monocytes Absolute Auto 0.4 K/mm3 (0.1-0.6); Monocytes Percent Auto 4.8 % (2.6-8.5); Neutrophils Absolute Auto 7.6 K/mm3 (1.3-6.7); Neutrophils Percent Auto 86.2 % (45.5-73.1); Platelet Count Result 226 k/mm3 (150-375); Red Blood Count 4.33 M/mm3 (4.2-5.4); Red Cell Distribution Width 13.1 % (11.5-14.5); White Blood Count 8.8 K/mm3 (4.5-10.0)
[2021-06-03 06:04] LABS: Magnesium 2.8 mg/dL (1.6-2.3)
[2021-06-03 06:05] LABS: INR 1.1; Prothrombin Time 13.6 Seconds (11.1-14.7)
[2021-06-03] MEDS: PROPOFOL IV EMULSION 100 ML 9.15 MG IV CONT ×2 (06:19→16:39)
[2021-06-03 06:56] LABS: Alanine Aminotransferase 149 U/L (4-35); Albumin Level 3.2 g/dL (3.5-5.1); Alkaline Phosphatase 57 U/L (38-126); Anion Gap 2 mmol/L (8-16); Aspartate Amino Transferase 123 U/L (14-36); Bilirubin,Total 0.6 mg/dL (0.2-1.3); Blood Urea Nitrogen 29 mg/dL (7-17); Calcium 8.7 mg/dL (8.4-10.2); Carbon Dioxide 35 mmol/L (22-30); Chloride 109 mmol/L (98-107); Estimated CRCL calculation 89 ml/min; Estimated Glomerular Filt Rate > 60; Glucose 159 mg/dL (65-110); Potassium 3.8 mmol/L (3.4-5.0); Sodium 146 mmol/L (137-145)
[2021-06-03] MEDS: SODIUM CHLORIDE 0.45% 500 ML 100 ML IV CONT (09:46)
[2021-06-03] MEDS: BARICITINIB 2 MG TABLET 4 MG PO (09:50)
[2021-06-03] MEDS: PANTOPRAZOLE SODIUM IV 40 MG VIAL IV PUSH (09:51)
[2021-06-03] MEDS: MINERAL OIL/WHITE PETROLATUM OINTMENT 1 APPLIC EACH EYE ×2 (09:51→20:37)
--- NOTE | 2021-06-03 11:03 | WPDINTPN ---
Progress Note: A&P Assessment and Plan (1) Acute respiratory failure with hypoxia: Code(s): J96.01 - Acute respiratory failure with hypoxia Status: Acute Assessment and Plan: Secondary to extensive COVID pneumonia. Chest CTA on 05/29/2021 at outside facility was negative for pulmonary embolism. Currently sedated with propofol. Triglyceride level was normal Intubated on 06/01/2021 at outside facility. Currently on a tidal volume of 330, rate of 22, ABG reviewed- PEEP is at 12 FiO2 is at 55% Chest x-ray reviewed - Advance ETT by 2 cm Daily prone ventilation as tolerated (2) Pneumonia due to COVID-19 virus: Code(s): U07.1 - COVID-19; J12.82 - Pneumonia due to coronavirus disease 2018 Status: Acute Assessment and Plan: Patient has reportedly had COVID like symptoms for 3 weeks and she tested positive on 05/29/2021. She has completed a 5 day course of azithromycin . Her procalcitonin was normal Dexamethasone (started 05/29) She has completed a 5 day course of remdesivir Continue baricitinib (started 05/31). Monitor inflammatory markers (3) Rhabdomyolysis: Code(s): M62.82 - Rhabdomyolysis Status: Acute Assessment and Plan: Patient was started on IV fluids for CPK of 4471 on admission. Which improved with IV fluids Further IV fluids were held patient was intubated. Will give a small amount of IV fluids today (4) Elevated LFTs: Code(s): R79.89 - Other specified abnormal findings of blood chemistry Status: Acute Assessment and Plan: Most likely secondary to COVID-19 +/- rhabdomyolysis. AST and ALT have trended down since admission. Viral hepatitis panel was negative Right upper quadrant ultrasound showed hepatic steatosis (5) Hypothyroidism: Code(s): E03.9 - Hypothyroidism, unspecified Status: Acute Assessment and Plan: Continue levothyroxine and check TSH. (6) Prolonged QT interval: Code(s): R94.31 - Abnormal electrocardiogram [ECG] [EKG] Status: Acute Assessment and Plan: QTc was 577 on EKG done at outside facility 2 days ago. EKG done here showed QTC of 407 Monitor (7) Hyponatremia: Code(s): E87.1 - Hypo-osmolality and hyponatremia Status: Acute Assessment and Plan: Increase free water flushes Will give 500 cc of half-normal saline as patient appears intravascularly dry due to drop in urine output Additional Plan DVT prophylaxis -Lovenox subQ q.12 hours Stress ulcer prophylaxis -at PPI Nutrition -continue Tube Feeds. Add Reglan Code Status - Full Code Total Critical Care Time - 31 minutes Due to a high probability of clinically significant, life threatening deterioration, the patient required my highest level of preparedness to intervene emergently and I personally spent this critical care time directly and personally managing the patient. This critical care time included obtaining a history; examining the patient; pulse oximetry; ordering and review of studies; arranging urgent treatment with development of a management plan; evaluation of patient's response to treatment; frequent reassessment; and discussions with other providers. It was exclusive of separately billable procedures and treating other patients and teaching time. Please see Assessment and Plan section and the rest of the note for further information on patient assessment and treatment Subjective Date/time seen: 06/03/21 11:03 Overnight events reviewed. Afebrile Continues to be on mechanical ventilation Was placed in prone position overnight On propofol for sedation Vitals acceptable Review of Systems Review of Systems: ROS unobtainable: Yes unobtainable due to endotracheal tube, unobtainable due to medical condition and unobtainable due to mental status Exam Narrative: General:female sedated and intubated. HEENT: Pupils equal and are reactive. Sclerae anicteric. Conjunctiva mildly injected.
--- NOTE | 2021-06-03 11:43 | PCDIET ---
ICU Rounding Note: Patient tolerating Vital 1.2 at 40mL/hr goal rate with 100mL water flush every 4 hours fairly well. RN reports residual of 300mL. MD adding Reglan. Last recorded weight is 102.2kg which is down from last review. Bowel Motility: No documented BM as of yet. Labs Reviewed: Glu (159), BUN (29), Cr (0.6), Na (146), Alb (3.2), Mg (2.8) Meds Noted: Olumiant, Reglan, Decadron, Fentanyl, Synthroid, Protonix, 100mL bolus of 1/2NS Additional Notes: No documented skin breakdown. Following daily in ICU rounds. Assessing/reassessing every Monday and Monday.
[2021-06-03] MEDS: METOCLOPRAMIDE HCL 10 MG/10 ML SOLN UDC FEED TUBE ×2 (12:48→16:37)
[2021-06-03 12:58] LABS: Glucose Point of Care 138 mg/dl (65-105)
[2021-06-03 17:35] LABS: Glucose Point of Care 159 mg/dl (65-105)
[2021-06-03] MEDS: ENOXAPARIN 40 MG/0.4 ML SYRINGE SUB-Q (20:37)
[2021-06-03] MEDS: FENTANYL 2,500MCG/NS250ML(*CRX 2,500 MCG/250 ML BAG 7.5 MCG IV CONT (21:53)
[2021-06-04] VITALS (34 sets, daily range): BP systolic 101–143; BP diastolic 60–94; PULSE 54–78; RESP 20–26; TEMP 36.3–37.9; O2SAT 92–98
[2021-06-04] MEDS: METOCLOPRAMIDE HCL 10 MG/10 ML SOLN UDC FEED TUBE ×4 (00:09→17:48)
[2021-06-04] MEDS: PROPOFOL IV EMULSION 100 ML 9.15 MG IV CONT ×2 (00:28→12:09)
[2021-06-04 00:33] LABS: Glucose Point of Care 130 mg/dl (65-105)
[2021-06-04 05:14] LABS: Alveolar/Arterial O2 Gradient 449.5 mmHg; Base Excess ABG 2.8 mEq/l (+/-2.0); Carboxyhemoglobin 0.3 % THb (0-2.0); Fractional Inspired Oxygen 90 %; HCO3 ABG 27.4 mEq/l (22.0-26.0); Methemoglobin ABG 0.4 %THb (0-1.5); Oxygen Content ABG 18.8 %vol (16.0-22.0); Oxyhemoglobin 97.2 % THb (90.0-100.0); PCO2 ABG 41.9 mmHg (35.0-45.0); PO2 ABG 149.3 mmHg (80.0-100.0); PO2 FiO2 Ratio Arterial Blood 1.66 %; Reduced Hemoglobin 2.1 %THb (0-5.0); Total Hemoglobin 13.6 g/dL (12.0-18.0); pH ABG 7.433 (7.350-7.450)
[2021-06-04 05:15] LABS: Device VENTILATOR; Modified Allen's Test Unable to perform; Site Drawn LEFT RADIAL
[2021-06-04 05:16] LABS: Arterial Blood Gas PEEP 12 cmH2O; Arterial Blood Gas Tidal Volume 330 ml; Arterial Blood Gas Vent Mode CMV; Arterial Blood Gas Ventilator rate 22 /MIN
[2021-06-04] MEDS: LEVOTHYROXINE SODIUM INJ 100 MCG/5 ML VIAL 12.5 MCG IV PUSH (06:05)
[2021-06-04] MEDS: CENTRAL LINE FLUSH 10 ML IV PUSH ×3 (06:05→20:11)
[2021-06-04 06:24] LABS: Basophils Percent Auto 0.2 % (0.2-1.2); Hematocrit 38.7 % (37.0-47.0); Hemoglobin 12.2 g/dL (12.0-15.0); Immature Granulocyte Absolute 0.22 K/mm3 (0.00-0.031); Immature Granulocyte Percent A 2.4 % (0-0.5); Lymphocytes Absolute Auto 0.51 K/mm3 (0.9-3.2); Lymphocytes Percent Auto 5.5 % (18.3-44.2); Mean Corpuscular HGB Conc 31.5 g/dl (32-36); Mean Corpuscular Volume 95.1 fl (80-100); Mean Platelet Volume 10.5 fl (7.4-10.4); Monocytes Absolute Auto 0.3 K/mm3 (0.1-0.6); Neutrophils Absolute Auto 8.3 K/mm3 (1.3-6.7); Neutrophils Percent Auto 88.9 % (45.5-73.1); Platelet Count Result 199 k/mm3 (150-375); Red Blood Count 4.07 M/mm3 (4.2-5.4); Red Cell Distribution Width 13.2 % (11.5-14.5); White Blood Count 9.3 K/mm3 (4.5-10.0)
[2021-06-04 06:34] LABS: INR 1.1; Prothrombin Time 13.7 Seconds (11.1-14.7)
[2021-06-04 06:38] LABS: Alanine Aminotransferase 157 U/L (4-35); Alkaline Phosphatase 48 U/L (38-126); Anion Gap 4 mmol/L (8-16); Aspartate Amino Transferase 119 U/L (14-36); Bilirubin,Total 0.5 mg/dL (0.2-1.3); Blood Urea Nitrogen 28 mg/dL (7-17); Calcium 8.5 mg/dL (8.4-10.2); Carbon Dioxide 34 mmol/L (22-30); Chloride 109 mmol/L (98-107); Estimated CRCL calculation 105 ml/min; Estimated Glomerular Filt Rate > 60; Glucose 141 mg/dL (65-110); Magnesium 2.7 mg/dL (1.6-2.3); Potassium 3.8 mmol/L (3.4-5.0); Sodium 147 mmol/L (137-145)
--- NOTE | 2021-06-04 09:30 | WPDINTPN ---
Progress Note: A&P Assessment and Plan (1) Acute respiratory failure with hypoxia: Code(s): J96.01 - Acute respiratory failure with hypoxia Status: Acute Assessment and Plan: Secondary to extensive COVID pneumonia. Chest CTA on 05/29/2021 at outside facility was negative for pulmonary embolism. Currently sedated with propofol. Triglyceride level was normal Intubated on 06/01/2021 at outside facility. Currently on a tidal volume of 330, rate of 22, ABG reviewed- PEEP is at 12 wean FiO2 Chest x-ray pending Daily prone ventilation as tolerated (2) Pneumonia due to COVID-19 virus: Code(s): U07.1 - COVID-19; J12.82 - Pneumonia due to coronavirus disease 2018 Status: Acute Assessment and Plan: Patient has reportedly had COVID like symptoms for 3 weeks and she tested positive on 05/29/2021. She has completed a 5 day course of azithromycin . Her procalcitonin was normal Dexamethasone (started 05/29) She has completed a 5 day course of remdesivir Continue baricitinib (started 05/31). Monitor inflammatory markers (3) Rhabdomyolysis: Code(s): M62.82 - Rhabdomyolysis Status: Acute Assessment and Plan: Patient was started on IV fluids for CPK of 4471 on admission. Which improved with IV fluids Further IV fluids were held patient was intubated. Will give a small amount of free water today (4) Elevated LFTs: Code(s): R79.89 - Other specified abnormal findings of blood chemistry Status: Acute Assessment and Plan: Most likely secondary to COVID-19 +/- rhabdomyolysis. AST and ALT have trended down since admission. Viral hepatitis panel was negative Right upper quadrant ultrasound showed hepatic steatosis (5) Hypothyroidism: Code(s): E03.9 - Hypothyroidism, unspecified Status: Acute Assessment and Plan: Continue levothyroxine and check TSH. (6) Prolonged QT interval: Code(s): R94.31 - Abnormal electrocardiogram [ECG] [EKG] Status: Acute Assessment and Plan: QTc was 577 on EKG done at outside facility 2 days ago. EKG done here showed QTC of 407 Monitor (7) Hyponatremia: Code(s): E87.1 - Hypo-osmolality and hyponatremia Status: Acute Assessment and Plan: Continue free water flushes Will give 500 cc D5 water today Additional Plan DVT prophylaxis -Lovenox subQ q.12 hours Stress ulcer prophylaxis -at PPI Nutrition -continue Tube Feeds. Continue Reglan Code Status - Full Code Total Critical Care Time - 31 minutes Due to a high probability of clinically significant, life threatening deterioration, the patient required my highest level of preparedness to intervene emergently and I personally spent this critical care time directly and personally managing the patient. This critical care time included obtaining a history; examining the patient; pulse oximetry; ordering and review of studies; arranging urgent treatment with development of a management plan; evaluation of patient's response to treatment; frequent reassessment; and discussions with other providers. It was exclusive of separately billable procedures and treating other patients and teaching time. Please see Assessment and Plan section and the rest of the note for further information on patient assessment and treatment Subjective Date/time seen: 06/04/21 09:30 Overnight events reviewed. Afebrile Continues to be on mechanical ventilation Continues to be on sedation Was placed in prone position overnight Vitals acceptable Review of Systems Review of Systems: ROS unobtainable: Yes unobtainable due to endotracheal tube, unobtainable due to medical condition and unobtainable due to mental status Exam Narrative: General:female sedated and intubated. HEENT: Pupils equal and are reactive. Sclerae anicteric. Conjunctiva mildly injected. ET and OG tubes in place. Neck: Supple. No obvious adenopathy or JVD. Respiratory: Carmen
[2021-06-04] MEDS: DEXTROSE 5% IN WATER 500 ML 100 ML IV CONT (09:39)
[2021-06-04] MEDS: BARICITINIB 2 MG TABLET 4 MG PO (09:44)
[2021-06-04] MEDS: PANTOPRAZOLE SODIUM IV 40 MG VIAL IV PUSH (09:45)
[2021-06-04] MEDS: MINERAL OIL/WHITE PETROLATUM OINTMENT 1 APPLIC EACH EYE ×2 (09:45→20:11)
--- NOTE | 2021-06-04 11:28 | PCDIET ---
Nutrition Follow-Up Complete: Nutrition Diagnosis: Inadequate oral intake related to intubation as evidenced by NPO. Nutrition Goal: Meet estimated nutritional needs. Goal in progress. Patient tolerating Vital 1.2 at 40mL/hr with 100mL water flush every 4 hours. Last recorded weight is 103.9 kg which is increased from last review. +I/O. Bowel Motility: No documented BM. If medically appropriate, would begin to consider adding medication to promote BM. Labs Reviewed: RBC (4.07), Glu (141), BUN (28), Cr (0.5), Na (147), Alb (3.0), Mg (2.7) Meds Noted: Synthroid, Reglan, Olumiant, Decadron, Fentanyl, Protonix, Propofol (rate of 9.153mL/hr provides 241kcal per day) Additional Notes: No documented skin breakdown. Will continue to monitor with same goal. Nutrition Monitoring and Evaluation: Follow up every Monday/Monday.
[2021-06-04 12:46] LABS: Glucose Point of Care 172 mg/dl (65-105)
--- NOTE | 2021-06-04 19:01 | PM.IMPN ---
Progress Note: A&P Assessment and Plan (1) Acute respiratory failure with hypoxia: Code(s): J96.01 - Acute respiratory failure with hypoxia Status: Acute Assessment and Plan: Secondary to extensive COVID pneumonia. Chest CTA on 05/29/2021 at outside facility was negative for pulmonary embolism. Currently sedated with propofol. Triglyceride level was normal Intubated on 06/01/2021 at outside facility. Currently on a tidal volume of 330, rate of 22, ABG reviewed- PEEP is at 12 wean FiO2 Chest x-ray pending Daily prone ventilation as tolerated (2) Pneumonia due to COVID-19 virus: Code(s): U07.1 - COVID-19; J12.82 - Pneumonia due to coronavirus disease 2018 Status: Acute Assessment and Plan: Patient has reportedly had COVID like symptoms for 3 weeks and she tested positive on 05/29/2021. She has completed a 5 day course of azithromycin . Her procalcitonin was normal Dexamethasone (started 05/29) She has completed a 5 day course of remdesivir Continue baricitinib (started 05/31). Monitor inflammatory markers (3) Rhabdomyolysis: Code(s): M62.82 - Rhabdomyolysis Status: Acute Assessment and Plan: Patient was started on IV fluids for CPK of 4471 on admission. Which improved with IV fluids Further IV fluids were held patient was intubated. Will give a small amount of free water today (4) Elevated LFTs: Code(s): R79.89 - Other specified abnormal findings of blood chemistry Status: Acute Assessment and Plan: Most likely secondary to COVID-19 +/- rhabdomyolysis. AST and ALT have trended down since admission. Viral hepatitis panel was negative Right upper quadrant ultrasound showed hepatic steatosis (5) Hypothyroidism: Code(s): E03.9 - Hypothyroidism, unspecified Status: Acute Assessment and Plan: Continue levothyroxine and check TSH. (6) Prolonged QT interval: Code(s): R94.31 - Abnormal electrocardiogram [ECG] [EKG] Status: Acute Assessment and Plan: QTc was 577 on EKG done at outside facility 2 days ago. EKG done here showed QTC of 407 Monitor (7) Hyponatremia: Code(s): E87.1 - Hypo-osmolality and hyponatremia Status: Acute Assessment and Plan: Continue free water flushes Will give 500 cc D5 water today Additional Plan DVT prophylaxis -Lovenox subQ q.12 hours Stress ulcer prophylaxis -at PPI Nutrition -continue Tube Feeds. Continue Reglan Code Status - Full Code 06/01/21 Secondary to extensive COVID pneumonia. Chest CTA on 05/29/2021 at outside facility was negative for pulmonary embolism. Start fentanyl and wean propofol. Triglyceride level pending. Intubated on 06/01/2021 at outside facility. Currently on a tidal volume of 330, PEEP of 10, rate of 22, and 100% FiO2. Chest x-ray today shows extensive bilateral pneumonia with ET tube 2.3 cm above rosina. Patient has reportedly had COVID like symptoms for 3 weeks and she tested positive on 05/29/2021. Currently on azithromycin (4/), dexamethasone (12/19), remdesivir (12/14), and baricitinib (10/25). Check inflammatory markers in a.m. Patient was started on IV fluids for CPK of 4471 on admission. Total CK on our analyzer today is 820. Hold further IV fluids at this time to avoid over-hydration. Repeat CK in a.m. Most likely secondary to COVID-19 +/- rhabdomyolysis. AST and ALT have trended down since admission. Check hepatitis panel and right upper quadrant ultrasound for completeness sake. Continue levothyroxine and check TSH. Blood pressures are stable off antihypertensives. QTc was 577 on EKG done at outside facility 2 days ago. Repeat EKG pending, she is being monitored closely on telemetry. May need to discontinue azithromycin early depending on her interval. 06/04/21 Patient has reportedly had COVID like symptoms for 3 weeks and she tested positive on 05/29/2021. She has completed a 5 day course of azithromycin . Her procalcito
[2021-06-04 19:19] LABS: Glucose Point of Care 153 mg/dl (65-105)
[2021-06-04] MEDS: PROPOFOL IV EMULSION 100 ML 15.26 MG IV CONT (20:08)
[2021-06-04] MEDS: ENOXAPARIN 40 MG/0.4 ML SYRINGE SUB-Q (20:11)
[2021-06-05] VITALS (29 sets, daily range): BP systolic 104–125; BP diastolic 50–76; PULSE 49–85; RESP 22–26; TEMP 36.4–37.1; O2SAT 84–99
[2021-06-05] MEDS: METOCLOPRAMIDE HCL 10 MG/10 ML SOLN UDC FEED TUBE ×5 (00:25→23:51)
[2021-06-05 01:33] LABS: Glucose Point of Care 176 mg/dl (65-105)
[2021-06-05] MEDS: PROPOFOL IV EMULSION 100 ML 15.26 MG IV CONT ×4 (02:42→19:30)
[2021-06-05] MEDS: FENTANYL 2,500MCG/NS250ML(*CRX 2,500 MCG/250 ML BAG 12.5 MCG IV CONT (03:41)
[2021-06-05 04:02] LABS: Basophils Percent Auto 0.2 % (0.2-1.2); Hematocrit 35.3 % (37.0-47.0); Hemoglobin 11.4 g/dL (12.0-15.0); Immature Granulocyte Absolute 0.22 K/mm3 (0.00-0.031); Immature Granulocyte Percent A 2.2 % (0-0.5); Lymphocytes Absolute Auto 0.53 K/mm3 (0.9-3.2); Lymphocytes Percent Auto 5.2 % (18.3-44.2); Mean Corpuscular HGB Conc 32.3 g/dl (32-36); Mean Corpuscular Hemoglobin 30.4 pg (26-34); Mean Corpuscular Volume 94.1 fl (80-100); Mean Platelet Volume 10.9 fl (7.4-10.4); Monocytes Absolute Auto 0.2 K/mm3 (0.1-0.6); Monocytes Percent Auto 2.3 % (2.6-8.5); Neutrophils Absolute Auto 9.2 K/mm3 (1.3-6.7); Neutrophils Percent Auto 90.1 % (45.5-73.1); Platelet Count Result 193 k/mm3 (150-375); Red Blood Count 3.75 M/mm3 (4.2-5.4); Red Cell Distribution Width 13.2 % (11.5-14.5); White Blood Count 10.2 K/mm3 (4.5-10.0)
[2021-06-05 04:08] LABS: INR 1.1; Prothrombin Time 14.5 Seconds (11.1-14.7)
[2021-06-05 04:26] LABS: Alanine Aminotransferase 149 U/L (4-35); Alkaline Phosphatase 48 U/L (38-126); Anion Gap 4 mmol/L (8-16); Aspartate Amino Transferase 87 U/L (14-36); Bilirubin,Total 0.6 mg/dL (0.2-1.3); Blood Urea Nitrogen 22 mg/dL (7-17); Calcium 8.3 mg/dL (8.4-10.2); Carbon Dioxide 33 mmol/L (22-30); Chloride 103 mmol/L (98-107); Estimated CRCL calculation 105 ml/min; Estimated Glomerular Filt Rate > 60; Glucose 153 mg/dL (65-110); Magnesium 2.6 mg/dL (1.6-2.3); Potassium 3.8 mmol/L (3.4-5.0); Sodium 140 mmol/L (137-145)
[2021-06-05 05:06] LABS: Alveolar/Arterial O2 Gradient 293.2 mmHg; Base Excess ABG 5.7 mEq/l (+/-2.0); Carboxyhemoglobin 0.3 % THb (0-2.0); Fractional Inspired Oxygen 60 %; HCO3 ABG 32.3 mEq/l (22.0-26.0); Methemoglobin ABG 0.5 %THb (0-1.5); Oxygen Content ABG 23.4 %vol (16.0-22.0); Oxyhemoglobin 93.6 % THb (90.0-100.0); PCO2 ABG 53.3 mmHg (35.0-45.0); PO2 FiO2 Ratio Arterial Blood 1.27 %; Reduced Hemoglobin 5.6 %THb (0-5.0); Total Hemoglobin 17.8 g/dL (12.0-18.0); pH ABG 7.401 (7.350-7.450)
[2021-06-05 05:07] LABS: Device VENTILATOR; Modified Allen's Test Pass; Site Drawn LEFT RADIAL
[2021-06-05 05:08] LABS: Arterial Blood Gas PEEP 12 cmH2O; Arterial Blood Gas Tidal Volume 330 ml; Arterial Blood Gas Vent Mode CMV; Arterial Blood Gas Ventilator rate 22 /MIN
[2021-06-05] MEDS: CENTRAL LINE FLUSH 10 ML IV PUSH ×3 (06:06→20:22)
[2021-06-05] MEDS: LEVOTHYROXINE SODIUM INJ 100 MCG/5 ML VIAL 12.5 MCG IV PUSH (06:07)
[2021-06-05] MEDS: ROCURONIUM BROMIDE 50 MG/5 ML VIAL IV PUSH (08:12)
[2021-06-05] MEDS: MINERAL OIL/WHITE PETROLATUM OINTMENT 1 APPLIC EACH EYE ×2 (08:32→20:22)
[2021-06-05] MEDS: BARICITINIB 2 MG TABLET 4 MG PO (08:32)
[2021-06-05] MEDS: PANTOPRAZOLE SODIUM IV 40 MG VIAL IV PUSH (08:32)
--- NOTE | 2021-06-05 09:25 | WPDINTPN ---
Progress Note: A&P Assessment and Plan (1) Acute respiratory failure with hypoxia: Code(s): J96.01 - Acute respiratory failure with hypoxia Status: Acute Assessment and Plan: Secondary to extensive COVID pneumonia. Chest CTA on 05/29/2021 at outside facility was negative for pulmonary embolism. Currently sedated with propofol. Triglyceride level was normal Intubated on 06/01/2021 at outside facility. Currently on a tidal volume of 330, rate of 22, FiO2 60% peep 12 Patient decompensates which leads to increased oxygen requirement and increase in FiO2, every time she switched to supine position hence will give a dose of neuromuscular cori to prevent patient ventilator dyssynchrony during switching position and in supine position ABG reviewed Chest x-ray reviewed and advance ET tube by 2 cm Daily prone ventilation as tolerated (2) Pneumonia due to COVID-19 virus: Code(s): U07.1 - COVID-19; J12.82 - Pneumonia due to coronavirus disease 2018 Status: Acute Assessment and Plan: Patient has reportedly had COVID like symptoms for 3 weeks and she tested positive on 05/29/2021. She has completed a 5 day course of azithromycin . Her procalcitonin was normal Dexamethasone (started 05/29) She has completed a 5 day course of remdesivir Continue baricitinib (started 05/31). Monitor inflammatory markers (3) Rhabdomyolysis: Code(s): M62.82 - Rhabdomyolysis Status: Acute Assessment and Plan: Patient was started on IV fluids for CPK of 4471 on admission. Which improved with IV fluids Further IV fluids were held patient was intubated. Will give a small amount of free water today (4) Elevated LFTs: Code(s): R79.89 - Other specified abnormal findings of blood chemistry Status: Acute Assessment and Plan: Most likely secondary to COVID-19 +/- rhabdomyolysis. AST and ALT have trended down since admission. Viral hepatitis panel was negative Right upper quadrant ultrasound showed hepatic steatosis (5) Hypothyroidism: Code(s): E03.9 - Hypothyroidism, unspecified Status: Acute Assessment and Plan: Continue levothyroxine and check TSH. (6) Prolonged QT interval: Code(s): R94.31 - Abnormal electrocardiogram [ECG] [EKG] Status: Acute Assessment and Plan: QTc was 577 on EKG done at outside facility 2 days ago. EKG done here showed QTC of 407 Monitor (7) Hyponatremia: Code(s): E87.1 - Hypo-osmolality and hyponatremia Status: Acute Assessment and Plan: Improved with increased free water flushes and D5 water Continue free water flushes Additional Plan DVT prophylaxis -Lovenox subQ q.12 hours Stress ulcer prophylaxis -at PPI Nutrition -continue Tube Feeds. Continue Reglan Code Status - Full Code Total Critical Care Time - 30 minutes Due to a high probability of clinically significant, life threatening deterioration, the patient required my highest level of preparedness to intervene emergently and I personally spent this critical care time directly and personally managing the patient. This critical care time included obtaining a history; examining the patient; pulse oximetry; ordering and review of studies; arranging urgent treatment with development of a management plan; evaluation of patient's response to treatment; frequent reassessment; and discussions with other providers. It was exclusive of separately billable procedures and treating other patients and teaching time. Please see Assessment and Plan section and the rest of the note for further information on patient assessment and treatment Subjective Date/time seen: 06/05/21 09:25 Overnight events reviewed. Patient continues to be on mechanical ventilation and is on 12 of PEEP and 60% FiO2 Sedated with propofol and fentanyl Afebrile Vital signs stable Review of Systems Review of Systems: ROS unobtainable: Yes unobtainable due to end
[2021-06-05 12:07] LABS: Glucose Point of Care 107 mg/dl (65-105)
--- NOTE | 2021-06-05 15:22 | P.PNIM_ITS ---
Progress Note: A&P Assessment and Plan (1) Acute respiratory failure with hypoxia: Code(s): J96.01 - Acute respiratory failure with hypoxia Status: Acute Assessment and Plan: Secondary to extensive COVID pneumonia. Chest CTA on 05/29/2021 at outside facility was negative for pulmonary embolism. Currently sedated with propofol. Triglyceride level was normal Intubated on 06/01/2021 at outside facility. Currently on a tidal volume of 330, rate of 22, ABG reviewed- PEEP is at 12 wean FiO2 Chest x-ray pending Daily prone ventilation as tolerated (2) Pneumonia due to COVID-19 virus: Code(s): U07.1 - COVID-19; J12.82 - Pneumonia due to coronavirus disease 2018 Status: Acute Assessment and Plan: Patient has reportedly had COVID like symptoms for 3 weeks and she tested positive on 05/29/2021. She has completed a 5 day course of azithromycin . Her procalcitonin was normal Dexamethasone (started 05/29) She has completed a 5 day course of remdesivir Continue baricitinib (started 05/31). Monitor inflammatory markers (3) Rhabdomyolysis: Code(s): M62.82 - Rhabdomyolysis Status: Acute Assessment and Plan: Patient was started on IV fluids for CPK of 4471 on admission. Which improved with IV fluids Further IV fluids were held patient was intubated. Will give a small amount of free water today (4) Elevated LFTs: Code(s): R79.89 - Other specified abnormal findings of blood chemistry Status: Acute Assessment and Plan: Most likely secondary to COVID-19 +/- rhabdomyolysis. AST and ALT have trended down since admission. Viral hepatitis panel was negative Right upper quadrant ultrasound showed hepatic steatosis (5) Hypothyroidism: Code(s): E03.9 - Hypothyroidism, unspecified Status: Acute Assessment and Plan: Continue levothyroxine and check TSH. (6) Prolonged QT interval: Code(s): R94.31 - Abnormal electrocardiogram [ECG] [EKG] Status: Acute Assessment and Plan: QTc was 577 on EKG done at outside facility 2 days ago. EKG done here showed QTC of 407 Monitor (7) Hyponatremia: Code(s): E87.1 - Hypo-osmolality and hyponatremia Status: Acute Assessment and Plan: Continue free water flushes Will give 500 cc D5 water today Additional Plan DVT prophylaxis -Lovenox subQ q.12 hours Stress ulcer prophylaxis -at PPI Nutrition -continue Tube Feeds. Continue Reglan Code Status - Full Code 06/01/21 Secondary to extensive COVID pneumonia. Chest CTA on 05/29/2021 at outside facility was negative for pulmonary embolism. Start fentanyl and wean propofol. Triglyceride level pending. Intubated on 06/01/2021 at outside facility. Currently on a tidal volume of 330, PEEP of 10, rate of 22, and 100% FiO2. Chest x-ray today shows extensive bilateral pneumonia with ET tube 2.3 cm above rosina. Patient has reportedly had COVID like symptoms for 3 weeks and she tested positive on 05/29/2021. Currently on azithromycin (4/5), dexamethasone (4/10), remdesivir (4/), and baricitinib (10/25). Check inflammatory markers in a.m. Patient was started on IV fluids for CPK of 4471 on admission. Total CK on our analyzer today is 820. Hold further IV fluids at this time to avoid over-hydration. Repeat CK in a.m. Most likely secondary to COVID-19 +/- rhabdomyolysis. AST and ALT have trended down since admission. Check hepatitis panel and right upper quadrant ultrasound for completeness sake. Continue levothyroxine and check TSH. Blo
[2021-06-05 17:43] LABS: Glucose Point of Care 159 mg/dl (65-105)
[2021-06-05] MEDS: ENOXAPARIN 40 MG/0.4 ML SYRINGE SUB-Q (20:22)
[2021-06-06] VITALS (33 sets, daily range): BP systolic 114–129; BP diastolic 64–74; PULSE 42–123; RESP 22–26; TEMP 36–36.6; O2SAT 87–98
[2021-06-06 00:06] LABS: Glucose Point of Care 169 mg/dl (65-105)
[2021-06-06] MEDS: FENTANYL 2,500MCG/NS250ML(*CRX 2,500 MCG/250 ML BAG 12.5 MCG IV CONT ×2 (00:41→20:46)
[2021-06-06] MEDS: PROPOFOL IV EMULSION 100 ML 15.26 MG IV CONT ×4 (00:42→19:54)
[2021-06-06 04:43] LABS: Arterial Blood Gas PEEP 12 cmH2O; Arterial Blood Gas Vent Mode CMV; Arterial Blood Gas Ventilator rate 22 /MIN; Base Excess ABG 5.4 mEq/l (+/-2.0); Carboxyhemoglobin 0.3 % THb (0-2.0); Device VENTILATOR; Fractional Inspired Oxygen 60 %; HCO3 ABG 31.1 mEq/l (22.0-26.0); Methemoglobin ABG 0.3 %THb (0-1.5); Modified Allen's Test Pass; Oxygen Content ABG 17.8 %vol (16.0-22.0); Oxygen Saturation ABG 91.5 % (95.0-100.0); PCO2 ABG 49.7 mmHg (35.0-45.0); PO2 ABG 61.1 mmHg (80.0-100.0); PO2 FiO2 Ratio Arterial Blood 1.02 %; Reduced Hemoglobin 9.4 %THb (0-5.0); Site Drawn LEFT RADIAL; Total Hemoglobin 14.1 g/dL (12.0-18.0); pH ABG 7.414 (7.350-7.450)
[2021-06-06 04:44] LABS: Arterial Blood Gas Tidal Volume 330 ml
[2021-06-06] MEDS: METOCLOPRAMIDE HCL 10 MG/10 ML SOLN UDC FEED TUBE ×4 (05:41→23:26)
[2021-06-06] MEDS: CENTRAL LINE FLUSH 10 ML IV PUSH ×3 (05:42→20:45)
[2021-06-06] MEDS: LEVOTHYROXINE SODIUM INJ 100 MCG/5 ML VIAL 12.5 MCG IV PUSH (05:42)
[2021-06-06 06:15] LABS: Alanine Aminotransferase 112 U/L (4-35); Albumin Level 2.9 g/dL (3.5-5.1); Alkaline Phosphatase 46 U/L (38-126); Anion Gap 0 mmol/L (8-16); Aspartate Amino Transferase 61 U/L (14-36); Bilirubin,Total 0.5 mg/dL (0.2-1.3); Blood Urea Nitrogen 24 mg/dL (7-17); Calcium 8.8 mg/dL (8.4-10.2); Carbon Dioxide 38 mmol/L (22-30); Chloride 102 mmol/L (98-107); Estimated CRCL calculation 128 ml/min; Estimated Glomerular Filt Rate > 60; Glucose 159 mg/dL (65-110); Magnesium 2.5 mg/dL (1.6-2.3); Potassium 4.1 mmol/L (3.4-5.0); Sodium 140 mmol/L (137-145)
[2021-06-06 06:27] LABS: Basophils Percent Auto 0.1 % (0.2-1.2); Eosinophils Percent Auto 0.2 % (0-4.4); Hematocrit 34.7 % (37.0-47.0); Hemoglobin 11.1 g/dL (12.0-15.0); Immature Granulocyte Absolute 0.27 K/mm3 (0.00-0.031); Immature Granulocyte Percent A 3.4 % (0-0.5); Lymphocytes Absolute Auto 0.49 K/mm3 (0.9-3.2); Lymphocytes Percent Auto 6.1 % (18.3-44.2); Mean Corpuscular Hemoglobin 30.4 pg (26-34); Mean Corpuscular Volume 95.1 fl (80-100); Mean Platelet Volume 11.3 fl (7.4-10.4); Monocytes Absolute Auto 0.3 K/mm3 (0.1-0.6); Monocytes Percent Auto 3.6 % (2.6-8.5); Neutrophils Percent Auto 86.6 % (45.5-73.1); Platelet Count Result 207 k/mm3 (150-375); Red Blood Count 3.65 M/mm3 (4.2-5.4)
--- NOTE | 2021-06-06 08:41 | PM.IMPN ---
Progress Note: A&P Assessment and Plan (1) Acute respiratory failure with hypoxia: Code(s): J96.01 - Acute respiratory failure with hypoxia Status: Acute Assessment and Plan: Secondary to extensive COVID pneumonia. Chest CTA on 05/29/2021 at outside facility was negative for pulmonary embolism. Currently sedated with propofol. Triglyceride level was normal Intubated on 06/01/2021 at outside facility. Currently on a tidal volume of 330, rate of 22, ABG reviewed- PEEP is at 12 wean FiO2 Chest x-ray pending Daily prone ventilation as tolerated (2) Pneumonia due to COVID-19 virus: Code(s): U07.1 - COVID-19; J12.82 - Pneumonia due to coronavirus disease 2019 Status: Acute Assessment and Plan: Patient has reportedly had COVID like symptoms for 3 weeks and she tested positive on 05/29/2021. She has completed a 5 day course of azithromycin . Her procalcitonin was normal Dexamethasone (started 05/29) She has completed a 5 day course of remdesivir Continue baricitinib (started 05/31). Monitor inflammatory markers (3) Rhabdomyolysis: Code(s): M62.82 - Rhabdomyolysis Status: Acute Assessment and Plan: Patient was started on IV fluids for CPK of 4471 on admission. Which improved with IV fluids Further IV fluids were held patient was intubated. Will give a small amount of free water today (4) Elevated LFTs: Code(s): R79.89 - Other specified abnormal findings of blood chemistry Status: Acute Assessment and Plan: Most likely secondary to COVID-19 +/- rhabdomyolysis. AST and ALT have trended down since admission. Viral hepatitis panel was negative Right upper quadrant ultrasound showed hepatic steatosis (5) Hypothyroidism: Code(s): E03.9 - Hypothyroidism, unspecified Status: Acute Assessment and Plan: Continue levothyroxine and check TSH. (6) Prolonged QT interval: Code(s): R94.31 - Abnormal electrocardiogram [ECG] [EKG] Status: Acute Assessment and Plan: QTc was 577 on EKG done at outside facility 2 days ago. EKG done here showed QTC of 407 Monitor (7) Hyponatremia: Code(s): E87.1 - Hypo-osmolality and hyponatremia Status: Deleted Assessment and Plan: Continue free water flushes Will give 500 cc D5 water today (8) Hypernatremia: Code(s): E87.0 - Hyperosmolality and hypernatremia Status: Resolved Additional Plan DVT prophylaxis -Lovenox subQ q.12 hours Stress ulcer prophylaxis -at PPI Nutrition -continue Tube Feeds. Continue Reglan Code Status - Full Code 06/01/21 Secondary to extensive COVID pneumonia. Chest CTA on 05/29/2021 at outside facility was negative for pulmonary embolism. Start fentanyl and wean propofol. Triglyceride level pending. Intubated on 06/01/2021 at outside facility. Currently on a tidal volume of 330, PEEP of 10, rate of 22, and 100% FiO2. Chest x-ray today shows extensive bilateral pneumonia with ET tube 2.3 cm above rosina. Patient has reportedly had COVID like symptoms for 3 weeks and she tested positive on 05/29/2021. Currently on azithromycin (4/5), dexamethasone (4/10), remdesivir (4/), and baricitinib (10/25). Check inflammatory markers in a.m. Patient was started on IV fluids for CPK of 4471 on admission. Total CK on our analyzer today is 820. Hold further IV fluids at this time to avoid over-hydration. Repeat CK in a.m. Most likely secondary to COVID-19 +/- rhabdomyolysis. AST and ALT have trended down since admission. Check hepatitis panel and right upper quadrant ultrasound for completeness sake. Continue levothyroxine and check TSH. Blood pressures are stable off antihypertensives. QTc was 577 on EKG done at outside facility 2 days ago. Repeat EKG pending, she is being monitored closely on telemetry. May need to discontinue azithromycin early depending on her interval. 06/04/21 Patient has reportedly had COVID like symptoms for 3 weeks
[2021-06-06] MEDS: BARICITINIB 2 MG TABLET 4 MG PO (09:37)
[2021-06-06] MEDS: MINERAL OIL/WHITE PETROLATUM OINTMENT 1 APPLIC EACH EYE ×2 (09:37→20:45)
[2021-06-06] MEDS: PANTOPRAZOLE SODIUM IV 40 MG VIAL IV PUSH (09:37)
--- NOTE | 2021-06-06 11:11 | WPDINTPN ---
Progress Note: A&P Assessment and Plan (1) Acute respiratory failure with hypoxia: Code(s): J96.01 - Acute respiratory failure with hypoxia Status: Acute Assessment and Plan: Secondary to extensive COVID pneumonia. Chest CTA on 05/29/2021 at outside facility was negative for pulmonary embolism. Currently sedated with propofol. Triglyceride level was normal Intubated on 06/01/2021 at outside facility. Currently on a tidal volume of 330, rate of 22, FiO2 60% peep 12 ABG reviewed Chest x-ray reviewed Daily prone ventilation as tolerated (2) Pneumonia due to COVID-19 virus: Code(s): U07.1 - COVID-19; J12.82 - Pneumonia due to coronavirus disease 2019 Status: Acute Assessment and Plan: Patient has reportedly had COVID like symptoms for 3 weeks and she tested positive on 05/29/2021. She has completed a 5 day course of azithromycin . Her procalcitonin was normal Dexamethasone (started 05/29) She has completed a 5 day course of remdesivir Continue baricitinib (started 05/31). Monitor inflammatory markers (3) Elevated LFTs: Code(s): R79.89 - Other specified abnormal findings of blood chemistry Status: Acute Assessment and Plan: Most likely secondary to COVID-19 +/- rhabdomyolysis. AST and ALT have trended down since admission. Viral hepatitis panel was negative Right upper quadrant ultrasound showed hepatic steatosis (4) Hypothyroidism: Code(s): E03.9 - Hypothyroidism, unspecified Status: Acute Assessment and Plan: Continue levothyroxine and TSH was normal (5) Hyponatremia: Code(s): E87.1 - Hypo-osmolality and hyponatremia Status: Acute Assessment and Plan: Improved with increased free water flushes and D5 water Continue free water flushes Additional Plan DVT prophylaxis -Lovenox subQ q.12 hours Stress ulcer prophylaxis -at PPI Nutrition -continue Tube Feeds. Continue Reglan Code Status - Full Code Total Critical Care Time - 30 minutes Due to a high probability of clinically significant, life threatening deterioration, the patient required my highest level of preparedness to intervene emergently and I personally spent this critical care time directly and personally managing the patient. This critical care time included obtaining a history; examining the patient; pulse oximetry; ordering and review of studies; arranging urgent treatment with development of a management plan; evaluation of patient's response to treatment; frequent reassessment; and discussions with other providers. It was exclusive of separately billable procedures and treating other patients and teaching time. Please see Assessment and Plan section and the rest of the note for further information on patient assessment and treatment Subjective Date/time seen: 06/06/21 11:11 Overnight events reviewed. Patient continues to be on mechanical ventilation and is on 12 of PEEP and 60% FiO2 Sedated with propofol and fentanyl Afebrile Sinus bradycardia but blood pressure adequate. other vital signs stable Review of Systems Review of Systems: ROS unobtainable: Yes unobtainable due to endotracheal tube, unobtainable due to medical condition and unobtainable due to mental status Exam Narrative: General:female sedated and intubated. HEENT: Pupils equal and are reactive. Sclerae anicteric. Conjunctiva mildly injected. ET and OG tubes in place. Neck: Supple. No obvious adenopathy or JVD. Respiratory: Sedated on mechanical ventilation. Coarse breath sounds bilaterally Cardiovascular: Sinus bradycardia. No murmur. Gastrointestinal: Abdomen is soft, obese, nontender, and nondistended with positive bowel sounds. Genitourinary: Milligan catheter draining clear, light yellow urine. Skin: Warm and dry. No rash or lesions on limited exam. Extremities: No cyanosis or clubbing. Trace pretibial and pedal edema bilaterally. Radial pedal pulses intact. Neurological: S
[2021-06-06 12:18] LABS: Glucose Point of Care 149 mg/dl (65-105)
[2021-06-06 17:21] LABS: Glucose Point of Care 157 mg/dl (65-105)
[2021-06-06] MEDS: ENOXAPARIN 40 MG/0.4 ML SYRINGE SUB-Q (20:45)
[2021-06-06 23:39] LABS: Glucose Point of Care 160 mg/dl (65-105)
[2021-06-07] VITALS (32 sets, daily range): BP systolic 109–161; BP diastolic 65–95; PULSE 46–85; RESP 20–28; TEMP 36–36.6; O2SAT 84–98
[2021-06-07] MEDS: PROPOFOL IV EMULSION 100 ML 12.2 MG IV CONT ×3 (02:04→16:51)
[2021-06-07 04:40] LABS: Basophils Percent Auto 0.1 % (0.2-1.2); Eosinophils Percent Auto 0.1 % (0-4.4); Hematocrit 34.3 % (37.0-47.0); Hemoglobin 11.1 g/dL (12.0-15.0); Immature Granulocyte Absolute 0.19 K/mm3 (0.00-0.031); Immature Granulocyte Percent A 2.3 % (0-0.5); Lymphocytes Absolute Auto 0.47 K/mm3 (0.9-3.2); Lymphocytes Percent Auto 5.6 % (18.3-44.2); Mean Corpuscular HGB Conc 32.4 g/dl (32-36); Mean Corpuscular Hemoglobin 29.7 pg (26-34); Mean Corpuscular Volume 91.7 fl (80-100); Mean Platelet Volume 11.2 fl (7.4-10.4); Monocytes Absolute Auto 0.4 K/mm3 (0.1-0.6); Monocytes Percent Auto 4.7 % (2.6-8.5); Neutrophils Absolute Auto 7.3 K/mm3 (1.3-6.7); Neutrophils Percent Auto 87.2 % (45.5-73.1); Platelet Count Result 250 k/mm3 (150-375); Red Blood Count 3.74 M/mm3 (4.2-5.4); Red Cell Distribution Width 12.8 % (11.5-14.5); White Blood Count 8.3 K/mm3 (4.5-10.0)
[2021-06-07 04:45] LABS: Alanine Aminotransferase 100 U/L (4-35); Alkaline Phosphatase 48 U/L (38-126); Anion Gap 4 mmol/L (8-16); Aspartate Amino Transferase 54 U/L (14-36); Bilirubin,Total 0.5 mg/dL (0.2-1.3); Blood Urea Nitrogen 27 mg/dL (7-17); Calcium 8.9 mg/dL (8.4-10.2); Carbon Dioxide 36 mmol/L (22-30); Chloride 101 mmol/L (98-107); Estimated CRCL calculation 129 ml/min; Estimated Glomerular Filt Rate > 60; Glucose 153 mg/dL (65-110); Potassium 4.5 mmol/L (3.4-5.0); Sodium 141 mmol/L (137-145)
[2021-06-07 04:48] LABS: Alveolar/Arterial O2 Gradient 337.9 mmHg; Arterial Blood Gas Ventilator rate 22 /MIN; Base Excess ABG 6.6 mEq/l (+/-2.0); Carboxyhemoglobin 0.3 % THb (0-2.0); Device VENTILATOR; Fractional Inspired Oxygen 65 %; HCO3 ABG 32.6 mEq/l (22.0-26.0); Methemoglobin ABG 0.3 %THb (0-1.5); Modified Allen's Test Pass; Oxygen Content ABG 18.8 %vol (16.0-22.0); Oxyhemoglobin 92.6 % THb (90.0-100.0); PCO2 ABG 51.6 mmHg (35.0-45.0); PO2 ABG 69.4 mmHg (80.0-100.0); PO2 FiO2 Ratio Arterial Blood 1.07 %; Reduced Hemoglobin 6.8 %THb (0-5.0); Site Drawn LEFT RADIAL; Total Hemoglobin 14.4 g/dL (12.0-18.0); pH ABG 7.418 (7.350-7.450)
[2021-06-07 04:49] LABS: Arterial Blood Gas PEEP 12 cmH2O; Arterial Blood Gas Tidal Volume 330 ml; Arterial Blood Gas Vent Mode ASSIST CONTROL
[2021-06-07] MEDS: CENTRAL LINE FLUSH 10 ML IV PUSH ×3 (06:11→20:05)
[2021-06-07] MEDS: LEVOTHYROXINE SODIUM INJ 100 MCG/5 ML VIAL 12.5 MCG IV PUSH (06:11)
[2021-06-07] MEDS: METOCLOPRAMIDE HCL 10 MG/10 ML SOLN UDC FEED TUBE ×4 (06:11→23:28)
[2021-06-07] MEDS: BARICITINIB 2 MG TABLET 4 MG PO (08:52)
[2021-06-07] MEDS: PANTOPRAZOLE SODIUM IV 40 MG VIAL IV PUSH (08:52)
--- NOTE | 2021-06-07 08:57 | WPDINTPN ---
Progress Note: A&P Assessment and Plan (1) Acute respiratory failure with hypoxia: Code(s): J96.01 - Acute respiratory failure with hypoxia Status: Acute Assessment and Plan: Secondary to extensive COVID pneumonia. Chest CTA on 05/29/2021 at outside facility was negative for pulmonary embolism. Currently sedated with propofol. Triglyceride level was normal Intubated on 06/01/2021 at outside facility. Currently on a tidal volume of 330, rate of 22, FiO2 60% peep 12 ABG reviewed Chest x-ray reviewed Daily prone ventilation as tolerated I will give a dose of Lasix today (2) Pneumonia due to COVID-19 virus: Code(s): U07.1 - COVID-19; J12.82 - Pneumonia due to coronavirus disease 2018 Status: Acute Assessment and Plan: Patient has reportedly had COVID like symptoms for 3 weeks and she tested positive on 05/29/2021. She has completed a 5 day course of azithromycin . Her procalcitonin was normal Dexamethasone (started 05/29) She has completed a 5 day course of remdesivir Continue baricitinib (started 05/31). Monitor inflammatory markers (3) Elevated LFTs: Code(s): R79.89 - Other specified abnormal findings of blood chemistry Status: Acute Assessment and Plan: Most likely secondary to COVID-19 +/- rhabdomyolysis. AST and ALT have trended down since admission. Viral hepatitis panel was negative Right upper quadrant ultrasound showed hepatic steatosis (4) Hypothyroidism: Code(s): E03.9 - Hypothyroidism, unspecified Status: Acute Assessment and Plan: Continue levothyroxine and TSH was normal (5) Hyponatremia: Code(s): E87.1 - Hypo-osmolality and hyponatremia Status: Deleted Assessment and Plan: Improved with increased free water flushes and D5 water Continue free water flushes Additional Plan DVT prophylaxis -Lovenox subQ q.12 hours Stress ulcer prophylaxis -at PPI Nutrition -continue Tube Feeds. Continue Reglan Code Status - Full Code Total Critical Care Time - 31 minutes Due to a high probability of clinically significant, life threatening deterioration, the patient required my highest level of preparedness to intervene emergently and I personally spent this critical care time directly and personally managing the patient. This critical care time included obtaining a history; examining the patient; pulse oximetry; ordering and review of studies; arranging urgent treatment with development of a management plan; evaluation of patient's response to treatment; frequent reassessment; and discussions with other providers. It was exclusive of separately billable procedures and treating other patients and teaching time. Please see Assessment and Plan section and the rest of the note for further information on patient assessment and treatment Subjective Date/time seen: 06/07/21 08:57 no major change overnight. Continues to be on mechanical ventilation with PEEP of 12 and FiO2 of 65%. Sedated with propofol and fentanyl. Sinus bradycardia but adequate blood pressure. Adequate urine output Review of Systems Review of Systems: ROS unobtainable: Yes unobtainable due to endotracheal tube, unobtainable due to medical condition and unobtainable due to mental status Exam Narrative: General:female sedated and intubated. HEENT: Pupils equal and are reactive. Sclerae anicteric. Conjunctiva mildly injected. ET and OG tubes in place. Neck: Supple. No obvious adenopathy or JVD. Respiratory: Sedated on mechanical ventilation. Coarse breath sounds bilaterally Cardiovascular: Sinus bradycardia. No murmur. Gastrointestinal: Abdomen is soft, obese, nontender, and nondistended with positive bowel sounds. Genitourinary: Milligan catheter draining clear, light yellow urine. Skin: Warm and dry. No rash or lesions on limited exam. Extremities: No cyanosis or clubbing. Trace pretibial and pedal edema bilaterally. Radial pedal pulses intact
[2021-06-07] MEDS: MINERAL OIL/WHITE PETROLATUM OINTMENT 1 APPLIC EACH EYE ×2 (10:00→20:05)
--- NOTE | 2021-06-07 10:26 | PC.NURSE ---
Updated , Cheyanne, on plan of care and patient condition.
[2021-06-07] MEDS: polyethylene glycoL 3350 17 GM POWD.PACK PO (11:11)
[2021-06-07] MEDS: FUROSEMIDE INJ 40 MG/4 ML VIAL IV PUSH (11:15)
--- NOTE | 2021-06-07 11:31 | PCDIET ---
ICU Rounding Note: Patient tolerating Vital 1.2 at 40mL/hr goal rate with 100mL water flush every 4 hours. Propofol infusing at 12.204mL/hr which provides additional 322kcal per day. Last recorded weight is 105kg which is increased from last review. +I/O. Bowel Motility: No documented BM. adding scheduled Miralax. Labs Reviewed: RBC (3.74), Hgb (11.1), Hct (34.3), Glu (153), BUN (27), Cr (0.40), Alb (3.0) Meds Noted: Olumiant, Decadron, Synthroid, Fentanyl, Reglan, Protonix, Propofol, Miralax Additional Notes: No documented skin breakdown. Following daily in ICU rounds. Assessing/reassessing every Monday/Monday.
[2021-06-07 12:18] LABS: Glucose Point of Care 157 mg/dl (65-105)
[2021-06-07] MEDS: FENTANYL 2,500MCG/NS250ML(*CRX 2,500 MCG/250 ML BAG 15 MCG IV CONT (15:35)
--- NOTE | 2021-06-07 16:44 | PM.IMPN ---
Progress Note: A&P Assessment and Plan (1) Acute respiratory failure with hypoxia: Code(s): J96.01 - Acute respiratory failure with hypoxia Status: Acute Assessment and Plan: Secondary to extensive COVID pneumonia. Chest CTA on 05/29/2021 at outside facility was negative for pulmonary embolism. Prone positioning (2) Pneumonia due to COVID-19 virus: Code(s): U07.1 - COVID-19; J12.82 - Pneumonia due to coronavirus disease 2018 Status: Acute Assessment and Plan: Patient has reportedly had COVID like symptoms for 3 weeks and she tested positive on 05/29/2021. She has completed a 5 day course of azithromycin . Her procalcitonin was normal Dexamethasone (started 05/29) She has completed a 5 day course of remdesivir Continue baricitinib (started 05/31). CXR procalcitonin levels supportive care (3) Rhabdomyolysis: Code(s): M62.82 - Rhabdomyolysis Status: Resolved (4) Elevated LFTs: Code(s): R79.89 - Other specified abnormal findings of blood chemistry Status: Acute Assessment and Plan: Most likely secondary to COVID-19 +/- rhabdomyolysis. AST and ALT have trended down since admission. Viral hepatitis panel was negative Right upper quadrant ultrasound showed hepatic steatosis (5) Hypothyroidism: Code(s): E03.9 - Hypothyroidism, unspecified Status: Acute Assessment and Plan: Continue levothyroxine and check TSH. (6) Prolonged QT interval: Code(s): R94.31 - Abnormal electrocardiogram [ECG] [EKG] Status: Acute Assessment and Plan: Continue to Monitor (7) Hyponatremia: Code(s): E87.1 - Hypo-osmolality and hyponatremia Status: Deleted Assessment and Plan: Continue free water flushes Will give 500 cc D5 water today (8) Hypernatremia: Code(s): E87.0 - Hyperosmolality and hypernatremia Status: Resolved Subjective Date/time seen: 06/07/21 16:44 70-year-old female with hypertension, hypothyroidism, breast cancer, and anxiety who is being directly admitted to the intensive care unit from [facility] for further treatment of acute hypoxic respiratory failure secondary to COVID-19 pneumonia. Currently being treated in ICU. Review of Systems Review of Systems: ROS unobtainable: Yes unobtainable due to medical condition Exam Narrative: Pt lying in prone position pt is intubated in icu HEENT: NCAT. ET and OG tubes in place. Respiratory: Sedated on mechanical ventilation Genitourinary: Milligan catheter patent Objective Data Vital Signs Vital Signs: Vital Signs - 24 hr 06/06/21 17:18 06/06/21 18:00 06/06/21 19:54 Temperature Pulse Rate 47 L 42 L 56 L Respiratory Rate 22 H 24 H Blood Pressure 123/69 Pulse Oximetry 98 98 06/06/21 20:00 06/06/21 20:10 06/06/21 20:44 Temperature 36.0 C L Pulse Rate 54 L 58 L 50 L Respiratory Rate 26 H 25 H Blood Pressure 115/66 Pulse Oximetry 95 92 06/06/21 20:46 06/06/21 22:00 06/06/21 23:00 Temperature Pulse Rate 50 L 43 L 44 L Respiratory Rate 25 H 22 H Blood Pressure 127/74 Pulse Oximetry 98 97 06/06/21 23:30 06/07/21 00:00 06/07/21 02:00 Temperature 36.0 C L Pulse Rate 47 L 63 58 L Respiratory Rate 22 H 25 H 26 H Blood Pressure 120/67 129/73 Pulse Oximetry 94 96 06/07/21 02:04 06/07/21 02:08 06/07/21 04:00 Temperature 36.6 C Pulse Rate 58 L 69 48 L Respiratory Rate 26 H 22 H Blood Pressure 122/69 Pulse Oximetry 95 93 06/07/21 04:11 06/07/21 04:12 06/07/21 04:30 Temperature Pulse Rate 51 L 51 L 65 Respiratory Rate 22 H 22 H Blood Pressure Pulse Oximetry 94 06/07/21 06:00 06/07/21 06:05 06/07/21 08:00 Temperature 36.1 C L Pulse Rate 52 L 52 L 50 L Respiratory Rate 22 H 22 H 22 H Blood Pressure 125/69 114/65 Pulse Oximetry 96 91 06/07/21 08:45 06/07/21 09:39 06/07/21 10:00 Temperature Pulse Rate 63 68 Respiratory Ra
[2021-06-07 19:35] LABS: Glucose Point of Care 170 mg/dl (65-105)
[2021-06-07] MEDS: ENOXAPARIN 40 MG/0.4 ML SYRINGE SUB-Q (20:06)
[2021-06-07 23:42] LABS: Glucose Point of Care 151 mg/dl (65-105)
[2021-06-08] VITALS (28 sets, daily range): BP systolic 98–139; BP diastolic 64–84; PULSE 45–104; RESP 21–25; TEMP 35.9–36.3; O2SAT 90–98
[2021-06-08] MEDS: PROPOFOL IV EMULSION 100 ML 12.2 MG IV CONT ×2 (01:23→08:28)
[2021-06-08 05:36] LABS: Alveolar/Arterial O2 Gradient 259.1 mmHg; Arterial Blood Gas Vent Mode CMV; Arterial Blood Gas Ventilator rate 22 /MIN; Base Excess ABG 9.4 mEq/l (+/-2.0); Carboxyhemoglobin 0.3 % THb (0-2.0); Device VENTILATOR; Fractional Inspired Oxygen 55 %; HCO3 ABG 35.1 mEq/l (22.0-26.0); Methemoglobin ABG 0.3 %THb (0-1.5); Modified Allen's Test Unable to perform; Oxygen Content ABG 17.9 %vol (16.0-22.0); Oxygen Saturation ABG 95.4 % (95.0-100.0); Oxyhemoglobin 93.5 % THb (90.0-100.0); PO2 ABG 75.2 mmHg (80.0-100.0); PO2 FiO2 Ratio Arterial Blood 1.37 %; Reduced Hemoglobin 5.9 %THb (0-5.0); Site Drawn LEFT RADIAL; Total Hemoglobin 13.6 g/dL (12.0-18.0); pH ABG 7.447 (7.350-7.450)
[2021-06-08 05:37] LABS: Arterial Blood Gas PEEP 12 cmH2O; Arterial Blood Gas Tidal Volume 330 ml
[2021-06-08] MEDS: METOCLOPRAMIDE HCL 10 MG/10 ML SOLN UDC FEED TUBE ×4 (05:55→23:18)
[2021-06-08] MEDS: CENTRAL LINE FLUSH 10 ML IV PUSH ×3 (05:55→20:48)
[2021-06-08] MEDS: LEVOTHYROXINE SODIUM INJ 100 MCG/5 ML VIAL 12.5 MCG IV PUSH (05:56)
[2021-06-08] MEDS: FENTANYL 2,500MCG/NS250ML(*CRX 2,500 MCG/250 ML BAG 17.5 MCG IV CONT ×2 (05:58→20:48)
[2021-06-08] MEDS: BISACODYL 10 MG SUPPOSITORY RECTAL (06:00)
[2021-06-08 06:15] LABS: Hemoglobin 11.3 g/dL (12.0-15.0); Mean Corpuscular HGB Conc 32.3 g/dl (32-36); Mean Corpuscular Hemoglobin 29.7 pg (26-34); Mean Corpuscular Volume 92.1 fl (80-100); Mean Platelet Volume 11.1 fl (7.4-10.4); Platelet Count Result 274 k/mm3 (150-375); Red Cell Distribution Width 12.8 % (11.5-14.5); White Blood Count 9.9 K/mm3 (4.5-10.0)
[2021-06-08 06:34] LABS: Alanine Aminotransferase 86 U/L (4-35); Albumin Level 2.9 g/dL (3.5-5.1); Alkaline Phosphatase 46 U/L (38-126); Aspartate Amino Transferase 52 U/L (14-36); Bilirubin,Total 0.4 mg/dL (0.2-1.3); Blood Urea Nitrogen 31 mg/dL (7-17); Calcium 8.7 mg/dL (8.4-10.2); Carbon Dioxide > 40 mmol/L (22-30); Chloride 99 mmol/L (98-107); Estimated CRCL calculation 107 ml/min; Estimated Glomerular Filt Rate > 60; Glucose 126 mg/dL (65-110); Magnesium 2.4 mg/dL (1.6-2.3); Sodium 140 mmol/L (137-145)
[2021-06-08] MEDS: polyethylene glycoL 3350 17 GM POWD.PACK PO (08:31)
[2021-06-08] MEDS: BARICITINIB 2 MG TABLET 4 MG PO (08:32)
[2021-06-08] MEDS: PANTOPRAZOLE SODIUM IV 40 MG VIAL IV PUSH (08:35)
[2021-06-08] MEDS: MINERAL OIL/WHITE PETROLATUM OINTMENT 1 APPLIC EACH EYE ×2 (08:36→20:48)
[2021-06-08 10:19] LABS: Basophils Percent Auto 0.2 % (0.2-1.2); Eosinophils Absolute Auto 0.1 K/mm3 (0-0.3); Eosinophils Percent Auto 0.6 % (0-4.4); Immature Granulocyte Absolute 0.26 K/mm3 (0.00-0.031); Immature Granulocyte Percent A 2.6 % (0-0.5); Lymphocytes Absolute Auto 0.77 K/mm3 (0.9-3.2); Lymphocytes Percent Auto 7.8 % (18.3-44.2); Monocytes Absolute Auto 0.4 K/mm3 (0.1-0.6); Monocytes Percent Auto 4.3 % (2.6-8.5); Neutrophils Absolute Auto 8.3 K/mm3 (1.3-6.7); Neutrophils Percent Auto 84.5 % (45.5-73.1)
--- NOTE | 2021-06-08 11:43 | WPDINTPN ---
Progress Note: A&P Assessment and Plan (1) Acute respiratory failure with hypoxia: Code(s): J96.01 - Acute respiratory failure with hypoxia Status: Acute Assessment and Plan: Secondary to extensive COVID pneumonia. Chest CTA on 05/29/2021 at outside facility was negative for pulmonary embolism. Currently sedated with propofol. Triglyceride level was normal Intubated on 06/01/2021 at outside facility. Currently on peep of 12 and 55% FiO2, ABG reviewed, res rate Chest x-ray reviewed Daily prone ventilation as tolerated Patient seems to have contraction alkalosis from Lasix, will diurese with Diamox today (2) Pneumonia due to COVID-19 virus: Code(s): U07.1 - COVID-19; J12.82 - Pneumonia due to coronavirus disease 2018 Status: Acute Assessment and Plan: Patient has reportedly had COVID like symptoms for 3 weeks and she tested positive on 05/29/2021. She has completed a 5 day course of azithromycin . Her procalcitonin was normal Dexamethasone (started 05/29) She has completed a 5 day course of remdesivir, will repeat another 5 day course of remdesivir (initiated on 06/08/2021) Continue baricitinib (started 05/31). Monitor inflammatory markers (3) Elevated LFTs: Code(s): R79.89 - Other specified abnormal findings of blood chemistry Status: Acute Assessment and Plan: Most likely secondary to COVID-19 +/- rhabdomyolysis. AST and ALT have trended down since admission. Viral hepatitis panel was negative Right upper quadrant ultrasound showed hepatic steatosis (4) Hypothyroidism: Code(s): E03.9 - Hypothyroidism, unspecified Status: Acute Assessment and Plan: Continue levothyroxine and TSH was normal (5) Hypernatremia: Code(s): E87.0 - Hyperosmolality and hypernatremia Status: Resolved Assessment and Plan: Improved with free water flushes Additional Plan DVT prophylaxis -Lovenox subQ q.12 hours Stress ulcer prophylaxis -at PPI Nutrition -continue Tube Feeds. Continue Reglan, added MiraLax Code Status - Full Code Total Critical Care Time - 34 minutes Due to a high probability of clinically significant, life threatening deterioration, the patient required my highest level of preparedness to intervene emergently and I personally spent this critical care time directly and personally managing the patient. This critical care time included obtaining a history; examining the patient; pulse oximetry; ordering and review of studies; arranging urgent treatment with development of a management plan; evaluation of patient's response to treatment; frequent reassessment; and discussions with other providers. It was exclusive of separately billable procedures and treating other patients and teaching time. Please see Assessment and Plan section and the rest of the note for further information on patient assessment and treatment Subjective Date/time seen: 06/08/21 11:43 Interval history: Reason for consult: COVID-19 pneumonia, acute respiratory failure, intubated on 06/01/2021 at outside facility, patient has not been vaccinated for COVID-19 06/08/2021: Patient remains intubated on CMV mode ventilation, peep of 12 and 55% FiO2. Patient is sedated with fentanyl and propofol infusion. Opens her eyes, followed commands and upper extremities but not lower extremities. Patient is in prone position. Urine output has been adequate, tolerating tube feeds. Hemodynamically stable, afebrile. LFTs are trending down Review of Systems Review of Systems: ROS unobtainable: Yes unobtainable due to endotracheal tube, unobtainable due to medical condition and unobtainable due to mental status Exam Narrative: General: sedated and intubated. prone position HEENT: Pupils equal and are reactive. Sclerae anicteric. Conjunctiva mildly injected. ET and OG tubes in place. Neck: Supple. No obvious adenopathy or JVD. Respiratory: Sedated on mechanical ventilati
--- NOTE | 2021-06-08 11:49 | PCDIET ---
Nutrition Follow-Up Complete: Nutrition Diagnosis: Inadequate oral intake related to intubation as evidenced by NPO. Nutrition Goal: Meet estimated nutritional needs. Goal met. Patient receiving Vital 1.2 at 40mL/hr goal rate with 100mL water flush every 4 hours. Residuals 290mL and below. Last recorded weight is 106.8 kg which is increased from last review. Bowel Motility: No documented BM. Patient received PRN Miralax and Dulcolax today. Labs Reviewed: RBC (3.80), Hgb (11.3), Hct (35.0), Glu (126), BUN (31), Cr (0.5), Alb (2.9) Meds Noted: Propofol (rate of 12.204mL/hr provides 322kcal per day), Olumiant, Dulcolax, Miralax, Decadron, Synthroid, Fentanyl, Reglan, Protonix Additional Notes: No documented skin breakdown. Will continue to monitor with same goal. Nutrition Monitoring and Evaluation: Follow up every Monday/Monday. Follow daily in ICU rounds.
[2021-06-08 12:34] LABS: Glucose Point of Care 127 mg/dl (65-105)
[2021-06-08 13:52] LABS: Prothrombin Time 12.9 Seconds (11.1-14.7)
--- NOTE | 2021-06-08 14:17 | PM.IMPN ---
Progress Note: A&P Assessment and Plan (1) Acute respiratory failure with hypoxia: Code(s): J96.01 - Acute respiratory failure with hypoxia Status: Acute Assessment and Plan: Secondary to extensive COVID pneumonia. Chest CTA on 05/29/2021 at outside facility was negative for pulmonary embolism. Currently sedated with propofol. Triglyceride level was normal 06/08 patient seen by car painter and appreciate will continue to monitor (2) Pneumonia due to COVID-19 virus: Code(s): U07.1 - COVID-19; J12.82 - Pneumonia due to coronavirus disease 2019 Status: Acute Assessment and Plan: Patient has reportedly had COVID like symptoms for 3 weeks and she tested positive on 05/29/2021. She has completed a 5 day course of azithromycin . Her procalcitonin was normal Dexamethasone (started 05/29) She has completed a 5 day course of remdesivir, will repeat another 5 day course of remdesivir (initiated on 06/08/2021) Continue baricitinib (started 05/31). Monitor inflammatory markers (3) Elevated LFTs: Code(s): R79.89 - Other specified abnormal findings of blood chemistry Status: Acute Assessment and Plan: Most likely secondary to COVID-19 +/- rhabdomyolysis. AST and ALT have trended down since admission. Viral hepatitis panel was negative Right upper quadrant ultrasound showed hepatic steatosis (4) Hypothyroidism: Code(s): E03.9 - Hypothyroidism, unspecified Status: Acute Assessment and Plan: Continue levothyroxine and TSH was normal (5) Hypernatremia: Code(s): E87.0 - Hyperosmolality and hypernatremia Status: Resolved Assessment and Plan: Improved with free water flushes Subjective Date/time seen: 06/08/21 14:18 patient with COVID-19 pneumonia currently on vent and in ICU unable to provide any review of symptoms. Review of Systems Review of Systems: ROS unobtainable: Yes unobtainable due to endotracheal tube Exam Narrative: Patient is comfortable, NAD HEENT: ET tube in place LUNGS: normal respiratory effort ABD: distended Lower extremities: edema SKIN: nonjaundiced Neuro: on vent and sedated. Objective Data Vital Signs Vital Signs: Vital Signs - 24 hr 06/07/21 14:35 06/07/21 15:35 06/07/21 16:00 Temperature 97.1 F L Pulse Rate 85 59 L 50 L Respiratory Rate 21 H 22 H Blood Pressure 141/80 H Pulse Oximetry 95 97 06/07/21 16:51 06/07/21 17:17 06/07/21 18:00 Temperature Pulse Rate 52 L 53 L 59 L Respiratory Rate 22 H 20 Blood Pressure 149/79 H Pulse Oximetry 97 95 06/07/21 20:00 06/07/21 20:07 06/07/21 20:08 Temperature 97.2 F L Pulse Rate 63 66 64 Respiratory Rate 25 H 28 H 28 H Blood Pressure 161/95 H Pulse Oximetry 98 06/07/21 22:00 06/07/21 22:05 06/07/21 22:20 Temperature Pulse Rate 47 L 47 L 46 L Respiratory Rate 22 H 22 H Blood Pressure 124/77 Pulse Oximetry 97 98 06/08/21 00:00 06/08/21 01:23 06/08/21 02:00 Temperature 96.7 F L Pulse Rate 49 L 56 L 51 L Respiratory Rate 22 H 22 H 22 H Blood Pressure 111/65 120/73 Pulse Oximetry 96 97 06/08/21 04:00 06/08/21 05:03 06/08/21 05:58 Temperature 96.9 F L Pulse Rate 48 L 46 L 56 L Respiratory Rate 22 H 23 H Blood Pressure 101/67 Pulse Oximetry 97 97 06/08/21 06:00 06/08/21 08:00 06/08/21 08:10 Temperature 97.1 F L Pulse Rate 61 51 L 49 L Respiratory Rate 22 H 22 H Blood Pressure 111/64 111/66 Pulse Oximetry 95 98 95 06/08/21 08:28 06/08/21 10:00 06/08/21 10:57 Temperature Pulse Rate 60 55 L 50 L Respiratory Rate 25 H 22 H Blood Pressure 108/69 Pulse Oximetry 90 92 06/08/21 12:00 Temperature 97.1 F L Pulse Rate 49 L Respiratory Rate 22 H Blood Pressure 106/68 Pulse Oximetry 95 Intake/Output Intake/Output: Intake & Output 06/05/21 06/06/21 06/07/21 06/08/21 23:59 23:59 23:59 23:59 Intake Total 2219 6428 2259 1471 Output Total 809 080 7684 900 Joseph
[2021-06-08] MEDS: PROPOFOL IV EMULSION 100 ML 9.15 MG IV CONT (17:48)
[2021-06-08 17:56] LABS: Glucose Point of Care 147 mg/dl (65-105)
[2021-06-08 18:36] LABS: Alanine Aminotransferase 101 U/L (4-35); Estimated CRCL calculation 107 ml/min; Estimated Glomerular Filt Rate > 60
[2021-06-08] MEDS: ENOXAPARIN 40 MG/0.4 ML SYRINGE SUB-Q (20:47)
[2021-06-08] MEDS: REMDESIVIR 100 MG/NS 250 ML 100 MG/250 ML BAG 250 MG IVPB (20:48)
[2021-06-08 23:29] LABS: Glucose Point of Care 119 mg/dl (65-105)
[2021-06-09] VITALS (36 sets, daily range): BP systolic 93–136; BP diastolic 60–77; PULSE 40–56; RESP 17–26; TEMP 35.8–36.4; O2SAT 90–98
[2021-06-09] MEDS: PROPOFOL IV EMULSION 100 ML 9.15 MG IV CONT ×2 (03:24→11:44)
[2021-06-09 03:55] LABS: Alveolar/Arterial O2 Gradient 242.6 mmHg; Carboxyhemoglobin 0.3 % THb (0-2.0); Device VENTILATOR; Fractional Inspired Oxygen 50 %; HCO3 ABG 35.3 mEq/l (22.0-26.0); Methemoglobin ABG 0.3 %THb (0-1.5); Modified Allen's Test Unable to perform; Oxygen Content ABG 17.3 %vol (16.0-22.0); Oxygen Saturation ABG 91.2 % (95.0-100.0); PCO2 ABG 49.9 mmHg (35.0-45.0); PO2 ABG 57.8 mmHg (80.0-100.0); PO2 FiO2 Ratio Arterial Blood 1.16 %; Reduced Hemoglobin 10.4 %THb (0-5.0); Site Drawn RIGHT RADIAL; Total Hemoglobin 13.8 g/dL (12.0-18.0); pH ABG 7.468 (7.350-7.450)
[2021-06-09 03:56] LABS: Arterial Blood Gas PEEP 12 cmH2O; Arterial Blood Gas Tidal Volume 330 ml; Arterial Blood Gas Vent Mode CMV; Arterial Blood Gas Ventilator rate 22 /MIN
[2021-06-09 06:06] LABS: Basophils Percent Auto 0.2 % (0.2-1.2); Eosinophils Absolute Auto 0.1 K/mm3 (0-0.3); Eosinophils Percent Auto 0.6 % (0-4.4); Hematocrit 35.2 % (37.0-47.0); Hemoglobin 11.2 g/dL (12.0-15.0); Immature Granulocyte Absolute 0.27 K/mm3 (0.00-0.031); Immature Granulocyte Percent A 2.5 % (0-0.5); Lymphocytes Absolute Auto 0.86 K/mm3 (0.9-3.2); Lymphocytes Percent Auto 7.9 % (18.3-44.2); Mean Corpuscular HGB Conc 31.8 g/dl (32-36); Mean Corpuscular Hemoglobin 30.4 pg (26-34); Mean Corpuscular Volume 95.7 fl (80-100); Mean Platelet Volume 11.3 fl (7.4-10.4); Monocytes Absolute Auto 0.6 K/mm3 (0.1-0.6); Monocytes Percent Auto 5.1 % (2.6-8.5); Neutrophils Absolute Auto 9.1 K/mm3 (1.3-6.7); Neutrophils Percent Auto 83.7 % (45.5-73.1); Platelet Count Result 281 k/mm3 (150-375); Red Blood Count 3.68 M/mm3 (4.2-5.4); Red Cell Distribution Width 12.9 % (11.5-14.5); White Blood Count 10.9 K/mm3 (4.5-10.0)
[2021-06-09 06:11] LABS: Alanine Aminotransferase 84 U/L (4-35); Albumin Level 2.9 g/dL (3.5-5.1); Alkaline Phosphatase 42 U/L (38-126); Anion Gap 1 mmol/L (8-16); Aspartate Amino Transferase 50 U/L (14-36); Bilirubin,Total 0.3 mg/dL (0.2-1.3); Blood Urea Nitrogen 32 mg/dL (7-17); Calcium 8.3 mg/dL (8.4-10.2); Carbon Dioxide 36 mmol/L (22-30); Chloride 98 mmol/L (98-107); Estimated CRCL calculation 130 ml/min; Estimated Glomerular Filt Rate > 60; Glucose 109 mg/dL (65-110); Magnesium 2.3 mg/dL (1.6-2.3); Potassium 4.1 mmol/L (3.4-5.0); Sodium 135 mmol/L (137-145)
[2021-06-09 06:17] LABS: Prothrombin Time 12.6 Seconds (11.1-14.7)
[2021-06-09] MEDS: CENTRAL LINE FLUSH 10 ML IV PUSH ×3 (06:40→21:35)
[2021-06-09] MEDS: LEVOTHYROXINE SODIUM INJ 100 MCG/5 ML VIAL 12.5 MCG IV PUSH (06:40)
[2021-06-09] MEDS: METOCLOPRAMIDE HCL 10 MG/10 ML SOLN UDC FEED TUBE ×3 (06:40→18:07)
[2021-06-09] MEDS: acetaZOLAMIDE SODIUM FOR INJ 500 MG VIAL 250 MG IV PUSH ×2 (08:54→21:34)
[2021-06-09] MEDS: MINERAL OIL/WHITE PETROLATUM OINTMENT 1 APPLIC EACH EYE ×2 (08:54→21:34)
[2021-06-09] MEDS: PANTOPRAZOLE SODIUM IV 40 MG VIAL IV PUSH (08:54)
[2021-06-09] MEDS: BARICITINIB 2 MG TABLET 4 MG PO (08:54)
[2021-06-09] MEDS: polyethylene glycoL 3350 17 GM POWD.PACK PO (08:55)
--- NOTE | 2021-06-09 09:57 | WPDINTPN ---
Progress Note: A&P Assessment and Plan (1) Acute respiratory failure with hypoxia: Code(s): J96.01 - Acute respiratory failure with hypoxia Status: Acute Assessment and Plan: Secondary to extensive COVID pneumonia. Chest CTA on 05/29/2021 at outside facility was negative for pulmonary embolism. Currently sedated with propofol. Triglyceride level was normal Intubated on 06/01/2021 at outside facility. Currently on peep of 12 and 55% FiO2, ABG reviewed, res rate Chest x-ray reviewed Daily prone ventilation as tolerated Patient seems to have contraction alkalosis from Lasix, will diurese with Diamox again today (2) Pneumonia due to COVID-19 virus: Code(s): U07.1 - COVID-19; J12.82 - Pneumonia due to coronavirus disease 2018 Status: Acute Assessment and Plan: Patient has reportedly had COVID like symptoms for 3 weeks and she tested positive on 05/29/2021. She has completed a 5 day course of azithromycin . Her procalcitonin was normal Dexamethasone (started 05/29) She has completed a 5 day course of remdesivir, will repeat another 5 day course of remdesivir (initiated on 06/08/2021) Continue baricitinib (started 05/31). Monitor inflammatory markers (3) Elevated LFTs: Code(s): R79.89 - Other specified abnormal findings of blood chemistry Status: Acute Assessment and Plan: Most likely secondary to COVID-19 +/- rhabdomyolysis. AST and ALT have trended down since admission. Viral hepatitis panel was negative Right upper quadrant ultrasound showed hepatic steatosis (4) Hypothyroidism: Code(s): E03.9 - Hypothyroidism, unspecified Status: Acute Assessment and Plan: Continue levothyroxine and TSH was normal (5) Hypernatremia: Code(s): E87.0 - Hyperosmolality and hypernatremia Status: Resolved Assessment and Plan: Sodium 135, will decrease free water flushes Additional Plan DVT prophylaxis -Lovenox subQ q.12 hours Stress ulcer prophylaxis -at PPI Nutrition -continue Tube Feeds. Continue Reglan, added MiraLax Code Status - Full Code Total Critical Care Time - 32minutes Due to a high probability of clinically significant, life threatening deterioration, the patient required my highest level of preparedness to intervene emergently and I personally spent this critical care time directly and personally managing the patient. This critical care time included obtaining a history; examining the patient; pulse oximetry; ordering and review of studies; arranging urgent treatment with development of a management plan; evaluation of patient's response to treatment; frequent reassessment; and discussions with other providers. It was exclusive of separately billable procedures and treating other patients and teaching time. Please see Assessment and Plan section and the rest of the note for further information on patient assessment and treatment Subjective Date/time seen: 06/09/21 09:57 Interval history: Reason for consult: COVID-19 pneumonia, acute respiratory failure, intubated on 06/01/2021 at outside facility, patient has not been vaccinated for COVID-19 06/09/2021: Patient is intubated on CMV mode of ventilation, peep of 12, 50% FiO2, sedated with fentanyl and propofol infusion. Patient currently in prone position. Urine output has been adequate, afebrile, hemodynamically stable. Tolerating tube feeds Review of Systems Review of Systems: ROS unobtainable: Yes unobtainable due to endotracheal tube, unobtainable due to medical condition and unobtainable due to mental status Exam Narrative: General: sedated and intubated. prone position HEENT: Pupils equal and are reactive. Sclerae anicteric. Conjunctiva mildly injected. ET and OG tubes in place. Neck: Supple. No obvious adenopathy or JVD. Respiratory: Sedated on mechanical ventilation. Coarse breath sounds bilaterally Cardiovascular: Sinus bradycardia. No murmur. Gastrointesti
--- NOTE | 2021-06-09 10:41 | PCDIET ---
ICU Rounding Note: Patient tolerating Vital 1.2 at 40mL/hr with 100mL water flush every 4 hours. Residuals 350mL and below. Last recorded weight is 106.5kg which is stable with last review. Bowel Motility: RN reports smear BM. Patient on scheduled Miralax and Dulcolax prn. Labs Reviewed: WBC (10.9), RBC (3.68), Hgb (11.2), Hct (35.2), BUN (32), Cr (0.4), Na (135), Alb (2.9), Meggan Ca (9.18) Meds Noted: Diamox, Miralax, Dulcolax, Olumiant, Decadron, Fentanyl, Synthroid, Reglan, Protonix, Remdesivir, Propofol (rate of 9.15mL/hr provides 241kcal per day) Additional Notes: No documented skin breakdown. Following daily in ICU rounds. Assessing/reassessing every Monday/Monday.
[2021-06-09] MEDS: FENTANYL 2,500MCG/NS250ML(*CRX 2,500 MCG/250 ML BAG 17.5 MCG IV CONT (11:43)
[2021-06-09 12:01] LABS: Glucose Point of Care 122 mg/dl (65-105)
[2021-06-09 18:23] LABS: Glucose Point of Care 128 mg/dl (65-105)
[2021-06-09] MEDS: MIDAZOLAM 100MG/NS 100ML(*CRX) 100 MG/100 ML BAG IV CONT (20:04)
[2021-06-09] MEDS: ENOXAPARIN 40 MG/0.4 ML SYRINGE SUB-Q (21:34)
[2021-06-09] MEDS: REMDESIVIR 100 MG/NS 250 ML 100 MG/250 ML BAG 250 MG IVPB (21:35)
[2021-06-10] VITALS (29 sets, daily range): BP systolic 89–123; BP diastolic 59–69; PULSE 45–69; RESP 17–27; TEMP 35.8–36.8; O2SAT 93–100
[2021-06-10] MEDS: METOCLOPRAMIDE HCL 10 MG/10 ML SOLN UDC FEED TUBE ×4 (00:22→18:05)
[2021-06-10 01:21] LABS: Glucose Point of Care 95 mg/dl (65-105)
[2021-06-10] MEDS: FENTANYL 2,500MCG/NS250ML(*CRX 2,500 MCG/250 ML BAG 17.5 MCG IV CONT ×2 (01:35→16:14)
[2021-06-10 04:54] LABS: Alveolar/Arterial O2 Gradient 229.6 mmHg; Base Excess ABG 5.4 mEq/l (+/-2.0); Carboxyhemoglobin 0.3 % THb (0-2.0); Device VENTILATOR; Fractional Inspired Oxygen 50 %; HCO3 ABG 30.9 mEq/l (22.0-26.0); Methemoglobin ABG 0.2 %THb (0-1.5); Modified Allen's Test Pass; Oxygen Content ABG 16.2 %vol (16.0-22.0); Oxygen Saturation ABG 94.3 % (95.0-100.0); Oxyhemoglobin 92.7 % THb (90.0-100.0); PCO2 ABG 49.6 mmHg (35.0-45.0); PO2 ABG 71.1 mmHg (80.0-100.0); PO2 FiO2 Ratio Arterial Blood 1.42 %; Reduced Hemoglobin 6.8 %THb (0-5.0); Site Drawn LEFT RADIAL; Total Hemoglobin 12.4 g/dL (12.0-18.0); pH ABG 7.413 (7.350-7.450)
[2021-06-10 04:55] LABS: Arterial Blood Gas PEEP 12 cmH2O; Arterial Blood Gas Tidal Volume 330 ml; Arterial Blood Gas Vent Mode CMV; Arterial Blood Gas Ventilator rate 22 /MIN
[2021-06-10 05:45] LABS: Basophils Percent Auto 0.2 % (0.2-1.2); Eosinophils Absolute Auto 0.1 K/mm3 (0-0.3); Eosinophils Percent Auto 0.6 % (0-4.4); Hematocrit 35.8 % (37.0-47.0); Hemoglobin 11.1 g/dL (12.0-15.0); Immature Granulocyte Absolute 0.25 K/mm3 (0.00-0.031); Lymphocytes Absolute Auto 0.94 K/mm3 (0.9-3.2); Lymphocytes Percent Auto 7.6 % (18.3-44.2); Mean Corpuscular Hemoglobin 29.7 pg (26-34); Mean Corpuscular Volume 95.7 fl (80-100); Mean Platelet Volume 10.4 fl (7.4-10.4); Monocytes Absolute Auto 0.5 K/mm3 (0.1-0.6); Monocytes Percent Auto 3.7 % (2.6-8.5); Neutrophils Absolute Auto 10.6 K/mm3 (1.3-6.7); Neutrophils Percent Auto 85.9 % (45.5-73.1); Platelet Count Result 277 k/mm3 (150-375); Red Blood Count 3.74 M/mm3 (4.2-5.4); White Blood Count 12.3 K/mm3 (4.5-10.0)
[2021-06-10 05:56] LABS: Prothrombin Time 12.8 Seconds (11.1-14.7)
[2021-06-10 05:57] LABS: Alanine Aminotransferase 81 U/L (4-35); Albumin Level 3.1 g/dL (3.5-5.1); Alkaline Phosphatase 48 U/L (38-126); Anion Gap 3 mmol/L (8-16); Aspartate Amino Transferase 47 U/L (14-36); Bilirubin,Total 0.5 mg/dL (0.2-1.3); Blood Urea Nitrogen 28 mg/dL (7-17); Calcium 8.8 mg/dL (8.4-10.2); Carbon Dioxide 34 mmol/L (22-30); Chloride 102 mmol/L (98-107); Estimated CRCL calculation 79 ml/min; Estimated Glomerular Filt Rate > 60; Glucose 106 mg/dL (65-110); Magnesium 2.3 mg/dL (1.6-2.3); Potassium 4.2 mmol/L (3.4-5.0); Sodium 139 mmol/L (137-145)
[2021-06-10] MEDS: LEVOTHYROXINE SODIUM INJ 100 MCG/5 ML VIAL 12.5 MCG IV PUSH (06:41)
[2021-06-10] MEDS: CENTRAL LINE FLUSH 10 ML IV PUSH ×3 (06:43→21:48)
[2021-06-10 07:00] LABS: Glucose Point of Care 98 mg/dl (65-105)
[2021-06-10] MEDS: BARICITINIB 2 MG TABLET 4 MG PO (08:20)
[2021-06-10] MEDS: acetaZOLAMIDE SODIUM FOR INJ 500 MG VIAL 250 MG IV PUSH (08:21)
[2021-06-10] MEDS: PANTOPRAZOLE SODIUM IV 40 MG VIAL IV PUSH (08:21)
[2021-06-10] MEDS: polyethylene glycoL 3350 17 GM POWD.PACK PO (08:22)
[2021-06-10] MEDS: MINERAL OIL/WHITE PETROLATUM OINTMENT 1 APPLIC EACH EYE ×2 (08:22→21:48)
--- NOTE | 2021-06-10 09:31 | WPDINTPN ---
Progress Note: A&P Assessment and Plan (1) Acute respiratory failure with hypoxia: Code(s): J96.01 - Acute respiratory failure with hypoxia Status: Acute Assessment and Plan: Secondary to extensive COVID pneumonia. Chest CTA on 05/29/2021 at outside facility was negative for pulmonary embolism. Currently sedated with propofol. Triglyceride level was normal Intubated on 06/01/2021 at outside facility. Currently on peep of 12 and 55% FiO2, will wean PEEP to 10 ABG reviewed, res rate Chest x-ray reviewed Daily prone ventilation as tolerated Patient seems to have contraction alkalosis from Lasix, will diurese with Diamox again today (2) Pneumonia due to COVID-19 virus: Code(s): U07.1 - COVID-19; J12.82 - Pneumonia due to coronavirus disease 2019 Status: Acute Assessment and Plan: Patient has reportedly had COVID like symptoms for 3 weeks and she tested positive on 05/29/2021. She has completed a 5 day course of azithromycin . Her procalcitonin was normal Dexamethasone (started 05/29) She has completed a 5 day course of remdesivir, will repeat another 5 day course of remdesivir (initiated on 06/08/2021) Continue baricitinib (started 05/31). Monitor inflammatory markers (3) Elevated LFTs: Code(s): R79.89 - Other specified abnormal findings of blood chemistry Status: Acute Assessment and Plan: Most likely secondary to COVID-19 +/- rhabdomyolysis. AST and ALT have trended down since admission. Viral hepatitis panel was negative Right upper quadrant ultrasound showed hepatic steatosis (4) Hypothyroidism: Code(s): E03.9 - Hypothyroidism, unspecified Status: Acute Assessment and Plan: Continue levothyroxine and TSH was normal (5) Hypernatremia: Code(s): E87.0 - Hyperosmolality and hypernatremia Status: Resolved Assessment and Plan: Resolved Additional Plan DVT prophylaxis -Lovenox subQ q.12 hours Stress ulcer prophylaxis -at PPI Nutrition -continue Tube Feeds. Continue Reglan, added MiraLax Code Status - Full Code Total Critical Care Time - 32 minutes Due to a high probability of clinically significant, life threatening deterioration, the patient required my highest level of preparedness to intervene emergently and I personally spent this critical care time directly and personally managing the patient. This critical care time included obtaining a history; examining the patient; pulse oximetry; ordering and review of studies; arranging urgent treatment with development of a management plan; evaluation of patient's response to treatment; frequent reassessment; and discussions with other providers. It was exclusive of separately billable procedures and treating other patients and teaching time. Please see Assessment and Plan section and the rest of the note for further information on patient assessment and treatment Subjective Date/time seen: 06/10/21 09:31 Interval history: Reason for consult: COVID-19 pneumonia, acute respiratory failure, intubated on 06/01/2021 at outside facility, patient has not been vaccinated for COVID-19 06/10/2021: Patient remains intubated on CMV mode of ventilation, peep of 12, 50% FiO2, in prone position. Sedated with fentanyl and Versed infusion, propofol was discontinued as patient is bradycardic. High tube feed residuals, urine output has been adequate, patient is afebrile and hemodynamically stable Review of Systems Review of Systems: ROS unobtainable: Yes unobtainable due to endotracheal tube, unobtainable due to medical condition and unobtainable due to mental status Exam Narrative: General: sedated and intubated. prone position HEENT: Pupils equal and are reactive. Sclerae anicteric. Conjunctiva mildly injected. ET and OG tubes in place. Neck: Supple. No obvious adenopathy or JVD. Respiratory: Sedated on mechanical ventilation. Coarse breath sounds bilaterally Cardiovascular: Regu
--- NOTE | 2021-06-10 11:10 | PCDIET ---
ICU Rounding Note: Patient tolerating Vital 1.2 at 40mL/hr. Clarified water flush of 60mL every 4 hours with MD. Residuals 300mL and below. Last recorded weight is 105.8kg which is down from last review. Bowel Motility: RN reports smear BM 06/09/21 x 2. Labs Reviewed: WBC (12.3), RBC (3.74), Hgb (11.1), Hct (35.8), BUN (28), Alb (3.1) Meds Noted: Protonix, Fentanyl, Synthroid, Reglan, Diamox, Olumiant, Decadron, Versed, Miralax, Remdesivir Additional Notes: No skin breakdown documented. Following daily in ICU rounds. Assessing/reassessing every Monday/Monday.
[2021-06-10 12:09] LABS: Glucose Point of Care 113 mg/dl (65-105)
[2021-06-10 18:16] LABS: Glucose Point of Care 130 mg/dl (65-105)
[2021-06-10] MEDS: ENOXAPARIN 40 MG/0.4 ML SYRINGE SUB-Q (21:47)
[2021-06-10] MEDS: REMDESIVIR 100 MG/NS 250 ML 100 MG/250 ML BAG 250 MG IVPB (21:48)
[2021-06-11] VITALS (27 sets, daily range): BP systolic 96–150; BP diastolic 53–98; PULSE 44–65; RESP 19–24; TEMP 35.6–36.9; O2SAT 84–100
[2021-06-11] MEDS: METOCLOPRAMIDE HCL 10 MG/10 ML SOLN UDC FEED TUBE ×4 (00:56→17:23)
[2021-06-11 01:05] LABS: Glucose Point of Care 107 mg/dl (65-105)
[2021-06-11] MEDS: MIDAZOLAM 100MG/NS 100ML(*CRX) 100 MG/100 ML BAG IV CONT (02:47)
[2021-06-11 05:21] LABS: Basophils Percent Auto 0.2 % (0.2-1.2); Eosinophils Absolute Auto 0.1 K/mm3 (0-0.3); Eosinophils Percent Auto 0.7 % (0-4.4); Hematocrit 33.1 % (37.0-47.0); Hemoglobin 10.5 g/dL (12.0-15.0); Immature Granulocyte Absolute 0.22 K/mm3 (0.00-0.031); Immature Granulocyte Percent A 2.2 % (0-0.5); Lymphocytes Absolute Auto 0.63 K/mm3 (0.9-3.2); Lymphocytes Percent Auto 6.2 % (18.3-44.2); Mean Corpuscular HGB Conc 31.7 g/dl (32-36); Mean Corpuscular Hemoglobin 29.8 pg (26-34); Mean Platelet Volume 10.7 fl (7.4-10.4); Monocytes Absolute Auto 0.4 K/mm3 (0.1-0.6); Monocytes Percent Auto 4.1 % (2.6-8.5); Neutrophils Absolute Auto 8.9 K/mm3 (1.3-6.7); Neutrophils Percent Auto 86.6 % (45.5-73.1); Platelet Count Result 259 k/mm3 (150-375); Red Blood Count 3.52 M/mm3 (4.2-5.4); Red Cell Distribution Width 12.9 % (11.5-14.5); White Blood Count 10.2 K/mm3 (4.5-10.0)
[2021-06-11 05:32] LABS: Prothrombin Time 12.9 Seconds (11.1-14.7)
[2021-06-11 05:34] LABS: Alveolar/Arterial O2 Gradient 235.2 mmHg; Base Excess ABG 3.4 mEq/l (+/-2.0); Carboxyhemoglobin 0.1 % THb (0-2.0); Fractional Inspired Oxygen 50 %; HCO3 ABG 29.2 mEq/l (22.0-26.0); Methemoglobin ABG 0.2 %THb (0-1.5); Oxygen Content ABG 19.8 %vol (16.0-22.0); Oxygen Saturation ABG 93.1 % (95.0-100.0); Oxyhemoglobin 91.4 % THb (90.0-100.0); PCO2 ABG 48.4 mmHg (35.0-45.0); PO2 ABG 66.9 mmHg (80.0-100.0); PO2 FiO2 Ratio Arterial Blood 1.34 %; Reduced Hemoglobin 8.3 %THb (0-5.0); Total Hemoglobin 15.4 g/dL (12.0-18.0); pH ABG 7.398 (7.350-7.450)
[2021-06-11 05:35] LABS: Device VENTILATOR; Modified Allen's Test Pass; Site Drawn LEFT RADIAL
[2021-06-11 05:36] LABS: Arterial Blood Gas PEEP 12 cmH2O; Arterial Blood Gas Tidal Volume 330 ml; Arterial Blood Gas Vent Mode CMV; Arterial Blood Gas Ventilator rate 22 /MIN
[2021-06-11 05:37] LABS: Alanine Aminotransferase 74 U/L (4-35); Alkaline Phosphatase 49 U/L (38-126); Anion Gap 2 mmol/L (8-16); Aspartate Amino Transferase 52 U/L (14-36); Bilirubin,Total 0.3 mg/dL (0.2-1.3); Blood Urea Nitrogen 28 mg/dL (7-17); Calcium 8.8 mg/dL (8.4-10.2); Carbon Dioxide 33 mmol/L (22-30); Chloride 101 mmol/L (98-107); Estimated CRCL calculation 90 ml/min; Estimated Glomerular Filt Rate > 60; Glucose 112 mg/dL (65-110); Magnesium 2.5 mg/dL (1.6-2.3); Potassium 4.1 mmol/L (3.4-5.0); Sodium 136 mmol/L (137-145)
[2021-06-11] MEDS: LEVOTHYROXINE SODIUM INJ 100 MCG/5 ML VIAL 12.5 MCG IV PUSH (06:41)
[2021-06-11] MEDS: CENTRAL LINE FLUSH 10 ML IV PUSH ×3 (06:41→21:45)
[2021-06-11] MEDS: FENTANYL 2,500MCG/NS250ML(*CRX 2,500 MCG/250 ML BAG 17.5 MCG IV CONT ×2 (06:41→21:44)
[2021-06-11 07:19] LABS: Glucose Point of Care 105 mg/dl (65-105)
[2021-06-11] MEDS: PANTOPRAZOLE SODIUM IV 40 MG VIAL IV PUSH (08:32)
[2021-06-11] MEDS: MINERAL OIL/WHITE PETROLATUM OINTMENT 1 APPLIC EACH EYE ×2 (08:33→21:44)
[2021-06-11] MEDS: polyethylene glycoL 3350 17 GM POWD.PACK PO (08:33)
[2021-06-11] MEDS: BARICITINIB 2 MG TABLET 4 MG PO (08:33)
--- NOTE | 2021-06-11 11:48 | WPDINTPN ---
Progress Note: A&P Assessment and Plan (1) Acute respiratory failure with hypoxia: Code(s): J96.01 - Acute respiratory failure with hypoxia Status: Acute Assessment and Plan: Secondary to extensive COVID pneumonia. Chest CTA on 05/29/2021 at outside facility was negative for pulmonary embolism. Currently sedated with propofol. Triglyceride level was normal Intubated on 06/01/2021 at outside facility. Currently on peep of 12 and 55% FiO2, will wean PEEP to 10 ABG reviewed, res rate Chest x-ray reviewed Daily prone ventilation as tolerated hold diuresis today (2) Pneumonia due to COVID-19 virus: Code(s): U07.1 - COVID-19; J12.82 - Pneumonia due to coronavirus disease 2018 Status: Acute Assessment and Plan: Patient has reportedly had COVID like symptoms for 3 weeks and she tested positive on 05/29/2021. She has completed a 5 day course of azithromycin . Her procalcitonin was normal Dexamethasone (started 05/29) She has completed a 5 day course of remdesivir, will repeat another 5 day course of remdesivir (initiated on 06/08/2021) Continue baricitinib (started 05/31). Monitor inflammatory markers (3) Elevated LFTs: Code(s): R79.89 - Other specified abnormal findings of blood chemistry Status: Acute Assessment and Plan: Most likely secondary to COVID-19 +/- rhabdomyolysis. AST and ALT have trended down since admission. Viral hepatitis panel was negative Right upper quadrant ultrasound showed hepatic steatosis (4) Hypothyroidism: Code(s): E03.9 - Hypothyroidism, unspecified Status: Acute Assessment and Plan: Continue levothyroxine and TSH was normal (5) Hypernatremia: Code(s): E87.0 - Hyperosmolality and hypernatremia Status: Resolved Assessment and Plan: Resolved Additional Plan DVT prophylaxis -Lovenox subQ q.12 hours Stress ulcer prophylaxis -at PPI Nutrition -continue Tube Feeds. Continue Reglan, added MiraLax Code Status - Full Code Total Critical Care Time - 32 minutes Due to a high probability of clinically significant, life threatening deterioration, the patient required my highest level of preparedness to intervene emergently and I personally spent this critical care time directly and personally managing the patient. This critical care time included obtaining a history; examining the patient; pulse oximetry; ordering and review of studies; arranging urgent treatment with development of a management plan; evaluation of patient's response to treatment; frequent reassessment; and discussions with other providers. It was exclusive of separately billable procedures and treating other patients and teaching time. Please see Assessment and Plan section and the rest of the note for further information on patient assessment and treatment Subjective Date/time seen: 06/11/21 11:48 Interval history: Reason for consult: COVID-19 pneumonia, acute respiratory failure, intubated on 06/01/2021 at outside facility, patient has not been vaccinated for COVID-19 06/11/2021: Patient remains intubated on CMV mode of ventilation, peep of 12, 50% FiO2, in prone position. Sedated with fentanyl and Versed infusion. tolerating tube feeds, urine output has been adequate, patient is afebrile and hemodynamically stable Review of Systems Review of Systems: ROS unobtainable: Yes unobtainable due to endotracheal tube, unobtainable due to medical condition and unobtainable due to mental status Exam Narrative: General: sedated and intubated. prone position HEENT: Pupils equal and are reactive. Sclerae anicteric. ET and OG tubes in place. Neck: Supple. No obvious adenopathy or JVD. Respiratory: Sedated on mechanical ventilation. Coarse breath sounds bilaterally Cardiovascular: Regular rate, sinus rhythm. No murmur. Gastrointestinal: Abdomen is soft, obese, nontender, and nondistended with positive bowel sounds. Genitourinary: Fole
[2021-06-11 12:20] LABS: Glucose Point of Care 140 mg/dl (65-105)
--- NOTE | 2021-06-11 13:25 | PCDIET ---
Nutrition Follow-Up Complete: Nutrition Diagnosis: Inadequate oral intake related to intubation as evidenced by NPO. Nutrition Goal: Meet estimated nutritional needs Goal in progress. Patient tolerating Vital 1.2 at 40mL/hr. Recommended increasing tube feeding to 50mL/hr Vital 1.2 now that Propofol is turned off. Given 22 hour daily infusion, this will provide 1320kcal and 82g protein. If sodium remains on low end, would decrease water flush from 60mL to 30mL every 4 hours. Last recorded weight is 104.9 kg which is down from last review. Bowel Motility: No BM reported. RN to give Dulcolax. Miralax given. Labs Reviewed: WBC (10.2), RBC (3.52), Hgb (10.5), Hct (33.1), Glu (112), BUN (28), Cr (0.6), Na (136), Alb (3.0), Mg (2.5) Meds Noted: Remdesivir, Olumiant, Fentanyl, Synthroid, Reglan, Versed, Protonix, Miralax, Dulcolax prn Additional Notes: Blister on chin area, per nursing. No pressure sores. Will continue to monitor with same goal. Nutrition Monitoring and Evaluation: Follow up every Monday/Monday.
--- NOTE | 2021-06-11 15:55 | PC.NURSE ---
Updated patient's spouse with plan of care and patient condition.
[2021-06-11 17:36] LABS: Glucose Point of Care 134 mg/dl (65-105)
[2021-06-11] MEDS: ENOXAPARIN 40 MG/0.4 ML SYRINGE SUB-Q (21:44)
[2021-06-11] MEDS: REMDESIVIR 100 MG/NS 250 ML 100 MG/250 ML BAG 250 MG IVPB (21:45)
[2021-06-12] VITALS (26 sets, daily range): BP systolic 104–166; BP diastolic 54–101; PULSE 45–107; RESP 18–34; TEMP 36.4–37.6; O2SAT 90–100
[2021-06-12] MEDS: METOCLOPRAMIDE HCL 10 MG/10 ML SOLN UDC FEED TUBE ×5 (00:19→23:33)
[2021-06-12 00:46] LABS: Glucose Point of Care 103 mg/dl (65-105)
[2021-06-12 04:52] LABS: Basophils Percent Auto 0.2 % (0.2-1.2); Eosinophils Percent Auto 0.2 % (0-4.4); Hematocrit 33.6 % (37.0-47.0); Hemoglobin 10.9 g/dL (12.0-15.0); Immature Granulocyte Absolute 0.22 K/mm3 (0.00-0.031); Immature Granulocyte Percent A 1.8 % (0-0.5); Lymphocytes Absolute Auto 0.63 K/mm3 (0.9-3.2); Lymphocytes Percent Auto 5.1 % (18.3-44.2); Mean Corpuscular HGB Conc 32.4 g/dl (32-36); Mean Corpuscular Hemoglobin 29.5 pg (26-34); Mean Corpuscular Volume 91.1 fl (80-100); Mean Platelet Volume 10.9 fl (7.4-10.4); Monocytes Absolute Auto 0.6 K/mm3 (0.1-0.6); Monocytes Percent Auto 4.9 % (2.6-8.5); Neutrophils Absolute Auto 10.8 K/mm3 (1.3-6.7); Neutrophils Percent Auto 87.8 % (45.5-73.1); Platelet Count Result 301 k/mm3 (150-375); Red Blood Count 3.69 M/mm3 (4.2-5.4); Red Cell Distribution Width 12.6 % (11.5-14.5); White Blood Count 12.3 K/mm3 (4.5-10.0)
[2021-06-12 05:05] LABS: Alveolar/Arterial O2 Gradient 235.4 mmHg; Base Excess ABG 5.1 mEq/l (+/-2.0); Carboxyhemoglobin 0.3 % THb (0-2.0); Fractional Inspired Oxygen 50 %; HCO3 ABG 29.5 mEq/l (22.0-26.0); Methemoglobin ABG 0.2 %THb (0-1.5); Oxygen Content ABG 15.6 %vol (16.0-22.0); Oxygen Saturation ABG 95.4 % (95.0-100.0); Oxyhemoglobin 93.7 % THb (90.0-100.0); PCO2 ABG 42.7 mmHg (35.0-45.0); PO2 ABG 73.1 mmHg (80.0-100.0); PO2 FiO2 Ratio Arterial Blood 1.46 %; Reduced Hemoglobin 5.8 %THb (0-5.0); Total Hemoglobin 11.8 g/dL (12.0-18.0); pH ABG 7.457 (7.350-7.450)
[2021-06-12 05:08] LABS: Prothrombin Time 12.8 Seconds (11.1-14.7)
[2021-06-12 05:18] LABS: Alanine Aminotransferase 72 U/L (4-35); Alkaline Phosphatase 49 U/L (38-126); Anion Gap 3 mmol/L (8-16); Aspartate Amino Transferase 43 U/L (14-36); Bilirubin,Total 0.4 mg/dL (0.2-1.3); Blood Urea Nitrogen 30 mg/dL (7-17); Calcium 8.7 mg/dL (8.4-10.2); Carbon Dioxide 33 mmol/L (22-30); Chloride 99 mmol/L (98-107); Estimated CRCL calculation 90 ml/min; Estimated Glomerular Filt Rate > 60; Glucose 101 mg/dL (65-110); Magnesium 2.5 mg/dL (1.6-2.3); Potassium 4.2 mmol/L (3.4-5.0); Sodium 135 mmol/L (137-145)
[2021-06-12 05:37] LABS: Device VENTILATOR; Modified Allen's Test Pass; Site Drawn RIGHT RADIAL
[2021-06-12 05:38] LABS: Arterial Blood Gas PEEP 8 cmH2O; Arterial Blood Gas Tidal Volume 469 ml; Arterial Blood Gas Ventilator rate 27 /MIN
[2021-06-12] MEDS: CENTRAL LINE FLUSH 10 ML IV PUSH ×3 (06:01→20:26)
[2021-06-12] MEDS: LEVOTHYROXINE SODIUM INJ 100 MCG/5 ML VIAL 12.5 MCG IV PUSH (06:01)
[2021-06-12] MEDS: MIDAZOLAM 100MG/NS 100ML(*CRX) 100 MG/100 ML BAG IV CONT (06:15)
[2021-06-12] MEDS: MINERAL OIL/WHITE PETROLATUM OINTMENT 1 APPLIC EACH EYE ×2 (08:57→20:25)
[2021-06-12] MEDS: BARICITINIB 2 MG TABLET 4 MG PO (08:57)
[2021-06-12] MEDS: PANTOPRAZOLE SODIUM IV 40 MG VIAL IV PUSH (08:57)
[2021-06-12] MEDS: polyethylene glycoL 3350 17 GM POWD.PACK PO (08:58)
--- NOTE | 2021-06-12 11:42 | WPDINTPN ---
Progress Note: A&P Assessment and Plan (1) Acute respiratory failure with hypoxia: Code(s): J96.01 - Acute respiratory failure with hypoxia Status: Acute Assessment and Plan: Secondary to extensive COVID pneumonia. Chest CTA on 05/29/2021 at outside facility was negative for pulmonary embolism. Currently sedated with propofol. Triglyceride level was normal Intubated on 06/01/2021 at outside facility. Currently on peep of 10 and 50% FiO2, wean FiO2 as tolerated, ABG reviewed, res rate Chest x-ray reviewed Will hold proning patient today as she has got a lot of facial swelling, also she is down to 50% and PEEP of 10 with adequate O2 sats in supine position Patient is auto diuresing (2) Pneumonia due to COVID-19 virus: Code(s): U07.1 - COVID-19; J12.82 - Pneumonia due to coronavirus disease 2019 Status: Acute Assessment and Plan: Patient has reportedly had COVID like symptoms for 3 weeks and she tested positive on 05/29/2021. She has completed a 5 day course of azithromycin . Her procalcitonin was normal Status post Dexamethasone (started 05/29) She has completed a 5 day course of remdesivir, will repeat another 5 day course of remdesivir (initiated on 06/08/2021) Continue baricitinib (started 05/31). Monitor inflammatory markers (3) Elevated LFTs: Code(s): R79.89 - Other specified abnormal findings of blood chemistry Status: Acute Assessment and Plan: Most likely secondary to COVID-19 +/- rhabdomyolysis. AST and ALT have trended down since admission. Viral hepatitis panel was negative Right upper quadrant ultrasound showed hepatic steatosis (4) Hypothyroidism: Code(s): E03.9 - Hypothyroidism, unspecified Status: Acute Assessment and Plan: Continue levothyroxine and TSH was normal (5) Hypernatremia: Code(s): E87.0 - Hyperosmolality and hypernatremia Status: Resolved Assessment and Plan: Resolved Additional Plan DVT prophylaxis -Lovenox subQ q.12 hours Stress ulcer prophylaxis -at PPI Nutrition -continue Tube Feeds. Continue Reglan, continue MiraLax Code Status - Full Code Total Critical Care Time - 32 minutes Due to a high probability of clinically significant, life threatening deterioration, the patient required my highest level of preparedness to intervene emergently and I personally spent this critical care time directly and personally managing the patient. This critical care time included obtaining a history; examining the patient; pulse oximetry; ordering and review of studies; arranging urgent treatment with development of a management plan; evaluation of patient's response to treatment; frequent reassessment; and discussions with other providers. It was exclusive of separately billable procedures and treating other patients and teaching time. Please see Assessment and Plan section and the rest of the note for further information on patient assessment and treatment Subjective Date/time seen: 06/12/21 11:42 Interval history: Reason for consult: COVID-19 pneumonia, acute respiratory failure, intubated on 06/01/2021 at outside facility, patient has not been vaccinated for COVID-19 06/12/2021: Patient seen and examined the ICU, remains intubated on CMV mode of ventilation, peep of 10. Sedated with fentanyl and Versed infusion, tolerating tube feeds. No bowel movements. Urine output has been adequate. Patient is afebrile and hemodynamically stable Review of Systems Review of Systems: ROS unobtainable: Yes unobtainable due to endotracheal tube, unobtainable due to medical condition and unobtainable due to mental status Exam Narrative: General: sedated and intubated. prone position HEENT: Pupils equal and are reactive. Sclerae anicteric. ET and OG tubes in place. Facial swelling due to prone positioning Neck: Supple. No obvious adenopathy or JVD. Respiratory: Sedated on mechanical ventilation. Coarse majo
[2021-06-12 12:04] LABS: Glucose Point of Care 85 mg/dl (65-105)
[2021-06-12 18:00] LABS: Glucose Point of Care 121 mg/dl (65-105)
[2021-06-12] MEDS: FENTANYL 2,500MCG/NS250ML(*CRX 2,500 MCG/250 ML BAG 17.5 MCG IV CONT (20:13)
[2021-06-12] MEDS: ENOXAPARIN 40 MG/0.4 ML SYRINGE SUB-Q (20:25)
[2021-06-12] MEDS: REMDESIVIR 100 MG/NS 250 ML 100 MG/250 ML BAG 250 MG IVPB (20:26)
[2021-06-12 23:45] LABS: Glucose Point of Care 110 mg/dl (65-105)
[2021-06-13] VITALS (30 sets, daily range): BP systolic 101–126; BP diastolic 58–69; PULSE 63–80; RESP 14–25; TEMP 36.5–37.8; O2SAT 91–96
[2021-06-13 04:19] LABS: Basophils Percent Auto 0.2 % (0.2-1.2); Eosinophils Absolute Auto 0.1 K/mm3 (0-0.3); Eosinophils Percent Auto 0.9 % (0-4.4); Hematocrit 33.3 % (37.0-47.0); Hemoglobin 10.7 g/dL (12.0-15.0); Immature Granulocyte Absolute 0.15 K/mm3 (0.00-0.031); Immature Granulocyte Percent A 1.1 % (0-0.5); Lymphocytes Absolute Auto 0.82 K/mm3 (0.9-3.2); Lymphocytes Percent Auto 5.8 % (18.3-44.2); Mean Corpuscular HGB Conc 32.1 g/dl (32-36); Mean Corpuscular Volume 93.3 fl (80-100); Mean Platelet Volume 10.4 fl (7.4-10.4); Monocytes Absolute Auto 0.4 K/mm3 (0.1-0.6); Monocytes Percent Auto 3.1 % (2.6-8.5); Neutrophils Absolute Auto 12.5 K/mm3 (1.3-6.7); Neutrophils Percent Auto 88.9 % (45.5-73.1); Platelet Count Result 252 k/mm3 (150-375); Red Blood Count 3.57 M/mm3 (4.2-5.4); Red Cell Distribution Width 13.2 % (11.5-14.5); White Blood Count 14.1 K/mm3 (4.5-10.0)
[2021-06-13 04:59] LABS: Alveolar/Arterial O2 Gradient 242.5 mmHg; Base Excess ABG 4.1 mEq/l (+/-2.0); Carboxyhemoglobin 0.3 % THb (0-2.0); Fractional Inspired Oxygen 50 %; HCO3 ABG 28.5 mEq/l (22.0-26.0); Methemoglobin ABG 0.3 %THb (0-1.5); Oxygen Content ABG 13.9 %vol (16.0-22.0); Oxygen Saturation ABG 93.9 % (95.0-100.0); Oxyhemoglobin 91.8 % THb (90.0-100.0); PCO2 ABG 42.2 mmHg (35.0-45.0); PO2 ABG 66.5 mmHg (80.0-100.0); PO2 FiO2 Ratio Arterial Blood 1.33 %; Reduced Hemoglobin 7.6 %THb (0-5.0); Total Hemoglobin 10.7 g/dL (12.0-18.0); pH ABG 7.448 (7.350-7.450)
[2021-06-13 05:00] LABS: Device VENTILATOR; Modified Allen's Test Pass; Site Drawn LEFT RADIAL
[2021-06-13 05:02] LABS: Arterial Blood Gas PEEP 12 cmH2O; Arterial Blood Gas Tidal Volume 330 ml; Arterial Blood Gas Vent Mode CMV; Arterial Blood Gas Ventilator rate 22 /MIN
[2021-06-13] MEDS: LEVOTHYROXINE SODIUM INJ 100 MCG/5 ML VIAL 12.5 MCG IV PUSH (05:09)
[2021-06-13] MEDS: CENTRAL LINE FLUSH 10 ML IV PUSH ×3 (05:10→21:06)
[2021-06-13] MEDS: METOCLOPRAMIDE HCL 10 MG/10 ML SOLN UDC FEED TUBE ×3 (05:10→17:30)
[2021-06-13] MEDS: MIDAZOLAM 100MG/NS 100ML(*CRX) 100 MG/100 ML BAG IV CONT (05:11)
[2021-06-13 06:31] LABS: Alanine Aminotransferase 71 U/L (4-35); Albumin Level 3.1 g/dL (3.5-5.1); Alkaline Phosphatase 58 U/L (38-126); Anion Gap 5 mmol/L (8-16); Aspartate Amino Transferase 41 U/L (14-36); Bilirubin,Total 0.7 mg/dL (0.2-1.3); Blood Urea Nitrogen 32 mg/dL (7-17); Calcium 8.3 mg/dL (8.4-10.2); Carbon Dioxide 31 mmol/L (22-30); Chloride 101 mmol/L (98-107); Estimated CRCL calculation 88 ml/min; Estimated Glomerular Filt Rate > 60; Glucose 105 mg/dL (65-110); Magnesium 2.2 mg/dL (1.6-2.3); Phosphorus 2.9 mg/dL (2.5-4.5); Sodium 137 mmol/L (137-145)
[2021-06-13] MEDS: MINERAL OIL/WHITE PETROLATUM OINTMENT 1 APPLIC EACH EYE ×2 (08:52→20:45)
[2021-06-13] MEDS: polyethylene glycoL 3350 17 GM POWD.PACK PO (08:52)
[2021-06-13] MEDS: BARICITINIB 2 MG TABLET 4 MG PO (08:52)
[2021-06-13] MEDS: PANTOPRAZOLE SODIUM IV 40 MG VIAL IV PUSH (08:52)
[2021-06-13] MEDS: FENTANYL 2,500MCG/NS250ML(*CRX 2,500 MCG/250 ML BAG 15 MCG IV CONT (11:27)
--- NOTE | 2021-06-13 11:59 | WPDINTPN ---
Progress Note: A&P Assessment and Plan (1) Acute respiratory failure with hypoxia: Code(s): J96.01 - Acute respiratory failure with hypoxia Status: Acute Assessment and Plan: Secondary to extensive COVID pneumonia. Chest CTA on 05/29/2021 at outside facility was negative for pulmonary embolism. Currently sedated with propofol. Triglyceride level was normal Intubated on 06/01/2021 at outside facility. Currently on peep of 10 and 50% FiO2, wean FiO2 as tolerated, ABG reviewed, Chest x-ray reviewed Will hold proning patient today as she has got a lot of facial swelling, also she is down to 50% and PEEP of 10 with adequate O2 sats in supine position Patient is auto diuresing -sedated with fentanyl and Versed infusion (2) Pneumonia due to COVID-19 virus: Code(s): U07.1 - COVID-19; J12.82 - Pneumonia due to coronavirus disease 2019 Status: Acute Assessment and Plan: Patient has reportedly had COVID like symptoms for 3 weeks and she tested positive on 05/29/2021. She has completed a 5 day course of azithromycin . Her procalcitonin was normal Status post Dexamethasone (started 05/29) She has completed a 5 day course of remdesivir, will repeat another 5 day course of remdesivir (initiated on 06/08/2021) Continue baricitinib (started 05/31). Monitor inflammatory markers (3) Elevated LFTs: Code(s): R79.89 - Other specified abnormal findings of blood chemistry Status: Acute Assessment and Plan: Most likely secondary to COVID-19 +/- rhabdomyolysis. AST and ALT have trended down since admission. Viral hepatitis panel was negative Right upper quadrant ultrasound showed hepatic steatosis (4) Hypothyroidism: Code(s): E03.9 - Hypothyroidism, unspecified Status: Acute Assessment and Plan: Continue levothyroxine and TSH was normal (5) Hypernatremia: Code(s): E87.0 - Hyperosmolality and hypernatremia Status: Resolved Assessment and Plan: Resolved Additional Plan DVT prophylaxis -Lovenox subQ Stress ulcer prophylaxis -at PPI Nutrition -continue Tube Feeds. Continue Reglan, continue MiraLax, no bowel movement, added Dulcolax suppository Discussed with Cheyanne, patient's , updated him with patient's condition and plan of care. I did explain to him that she is not being placed in prone position any longer. He stated that he has spoken to some of the product marketer up in [place] and he will NOT consent to tracheostomy Code Status - Full Code Total Critical Care Time - 34 minutes Due to a high probability of clinically significant, life threatening deterioration, the patient required my highest level of preparedness to intervene emergently and I personally spent this critical care time directly and personally managing the patient. This critical care time included obtaining a history; examining the patient; pulse oximetry; ordering and review of studies; arranging urgent treatment with development of a management plan; evaluation of patient's response to treatment; frequent reassessment; and discussions with other providers. It was exclusive of separately billable procedures and treating other patients and teaching time. Please see Assessment and Plan section and the rest of the note for further information on patient assessment and treatment Subjective Date/time seen: 06/13/21 11:59 Interval history: Reason for consult: COVID-19 pneumonia, acute respiratory failure, intubated on 06/01/2021 at outside facility, patient has not been vaccinated for COVID-19 06/13/2021: Patient seen and examined the ICU, remains intubated on CMV mode of ventilation, peep of 10 a 50% FiO2. Sedated with fentanyl and Versed infusion, tolerating tube feeds. No bowel movements. Urine output has been adequate. Patient is afebrile and hemodynamically stable. Patient has been is point position Review of Systems Review of Systems: ROS unobtainable: Yes unobtainable
[2021-06-13] MEDS: BISACODYL 10 MG SUPPOSITORY RECTAL (12:10)
[2021-06-13 12:19] LABS: Glucose Point of Care 109 mg/dl (65-105)
--- NOTE | 2021-06-13 14:10 | PM.IMPN ---
Progress Note: A&P Assessment and Plan (1) Acute respiratory failure with hypoxia: Code(s): J96.01 - Acute respiratory failure with hypoxia Status: Acute Assessment and Plan: 06/13/21 14:10 06/13 Interval history Patient has reportedly had COVID like symptoms for 3 weeks and she tested positive on 05/29/2021 and intubated on 06/01 outside facility and transferred to [facility] She has completed a 5 day course of azithromycin . Her procalcitonin was normal Dexamethasone (started 05/29) She has completed a 5 day course of remdesivir, will repeat another 5 day course of remdesivir (initiated on 06/08/2021) Continue baricitinib (started 05/31). Monitor inflammatory markers patient remains intubated seen by monogram maker and appreciate (2) Pneumonia due to COVID-19 virus: Code(s): U07.1 - COVID-19; J12.82 - Pneumonia due to coronavirus disease 2019 Status: Acute Assessment and Plan: remains intubated (3) Elevated LFTs: Code(s): R79.89 - Other specified abnormal findings of blood chemistry Status: Acute Assessment and Plan: Most likely secondary to COVID-19 +/- rhabdomyolysis. AST and ALT have trended down since admission. Viral hepatitis panel was negative Right upper quadrant ultrasound showed hepatic steatosis (4) Hypothyroidism: Code(s): E03.9 - Hypothyroidism, unspecified Status: Acute Assessment and Plan: will continue levothyroxine (5) Hypernatremia: Code(s): E87.0 - Hyperosmolality and hypernatremia Status: Resolved Assessment and Plan: most likely secondary to dehydration patient was gently hydrate sodium close to normal. Subjective Date/time seen: 06/13/21 14:10 06/13 Interval history Patient has reportedly had COVID like symptoms for 3 weeks and she tested positive on 05/29/2021 and intubated on 06/01 outside facility and transferred to [facility] She has completed a 5 day course of azithromycin . Her procalcitonin was normal Dexamethasone (started 05/29) She has completed a 5 day course of remdesivir, will repeat another 5 day course of remdesivir (initiated on 06/08/2021) Continue baricitinib (started 05/31). Monitor inflammatory markers patient remains intubated seen by monogram maker and appreciate Review of Systems Review of Systems: ROS unobtainable: Yes unobtainable due to endotracheal tube Exam Narrative: Patient is comfortable, NAD HEENT: ET tube in place LUNGS: normal respiratory effort ABD: distended Lower extremities: edema SKIN: nonjaundiced Neuro: on vent and sedated. Objective Data Vital Signs Vital Signs: Vital Signs - 24 hr 06/12/21 16:00 06/12/21 16:52 06/12/21 18:00 Temperature 99.6 F Pulse Rate 94 107 H 84 Respiratory Rate 34 H 22 H Blood Pressure 166/100 H 137/75 Pulse Oximetry 90 92 91 06/12/21 20:00 06/12/21 20:01 06/12/21 20:02 Temperature 99.6 F Pulse Rate 79 79 77 Respiratory Rate 20 Blood Pressure 125/69 Pulse Oximetry 92 92 06/12/21 20:13 06/12/21 22:00 06/12/21 22:01 Temperature Pulse Rate 81 76 76 Respiratory Rate 23 H 21 H Blood Pressure 107/71 Pulse Oximetry 92 06/12/21 23:15 06/12/21 23:34 06/13/21 00:00 Temperature Pulse Rate 73 76 75 Respiratory Rate 24 H Blood Pressure Pulse Oximetry 93 06/13/21 00:01 06/13/21 02:00 06/13/21 02:01 Temperature 99.6 F Pulse Rate 73 73 73 Respiratory Rate 22 H 21 H Blood Pressure 107/66 116/69 Pulse Oximetry 91 92 06/13/21 02:22 06/13/21 03:56 06/13/21 03:57 Temperature 100.0 F H Pulse Rate 73 78 Respiratory Rate 24 H Blood Pressure Pulse Oximetry 93 06/13/21 04:00 06/13/21 04:01 06/13/21 04:38 Temperature Pulse Rate 80 78 73 Respiratory Rate 21 H Blood Pressure 111/69 Pulse Oximetry 94 93 06/13/21 05:10 06/13/21 06:00 06/13/21 06:01 Temperature Pulse Rate 74 75 75 Respiratory Rate 22 H 24 H Blood Pressure 113/58 L Pulse Oxi
[2021-06-13 17:39] LABS: Glucose Point of Care 105 mg/dl (65-105)
[2021-06-13] MEDS: ENOXAPARIN 40 MG/0.4 ML SYRINGE SUB-Q (20:45)
[2021-06-13] MEDS: ENOXAPARIN 60 MG/0.6 ML SYRINGE SUB-Q (22:53)
[2021-06-14] VITALS (30 sets, daily range): BP systolic 93–124; BP diastolic 57–75; PULSE 52–83; RESP 21–24; TEMP 36.3–36.8; O2SAT 91–97
[2021-06-14] MEDS: METOCLOPRAMIDE HCL 10 MG/10 ML SOLN UDC FEED TUBE ×2 (00:26→07:31)
[2021-06-14 01:04] LABS: Glucose Point of Care 93 mg/dl (65-105)
[2021-06-14] MEDS: FENTANYL 2,500MCG/NS250ML(*CRX 2,500 MCG/250 ML BAG 15 MCG IV CONT ×2 (04:49→21:55)
[2021-06-14 05:02] LABS: Basophils Percent Auto 0.1 % (0.2-1.2); Eosinophils Absolute Auto 0.1 K/mm3 (0-0.3); Eosinophils Percent Auto 1.4 % (0-4.4); Hematocrit 30.7 % (37.0-47.0); Hemoglobin 9.9 g/dL (12.0-15.0); Immature Granulocyte Absolute 0.08 K/mm3 (0.00-0.031); Immature Granulocyte Percent A 0.9 % (0-0.5); Lymphocytes Absolute Auto 0.63 K/mm3 (0.9-3.2); Lymphocytes Percent Auto 6.9 % (18.3-44.2); Mean Corpuscular HGB Conc 32.2 g/dl (32-36); Mean Corpuscular Hemoglobin 30.1 pg (26-34); Mean Corpuscular Volume 93.3 fl (80-100); Mean Platelet Volume 10.6 fl (7.4-10.4); Monocytes Absolute Auto 0.4 K/mm3 (0.1-0.6); Monocytes Percent Auto 4.3 % (2.6-8.5); Neutrophils Absolute Auto 7.9 K/mm3 (1.3-6.7); Neutrophils Percent Auto 86.4 % (45.5-73.1); Platelet Count Result 204 k/mm3 (150-375); Red Blood Count 3.29 M/mm3 (4.2-5.4); Red Cell Distribution Width 13.2 % (11.5-14.5); White Blood Count 9.1 K/mm3 (4.5-10.0)
[2021-06-14 05:17] LABS: Anion Gap 4 mmol/L (8-16); Blood Urea Nitrogen 30 mg/dL (7-17); Calcium 8.2 mg/dL (8.4-10.2); Carbon Dioxide 33 mmol/L (22-30); Chloride 99 mmol/L (98-107); Estimated CRCL calculation 104 ml/min; Estimated Glomerular Filt Rate > 60; Glucose 103 mg/dL (65-110); Magnesium 2.2 mg/dL (1.6-2.3); Potassium 3.6 mmol/L (3.4-5.0); Sodium 136 mmol/L (137-145)
[2021-06-14] MEDS: LEVOTHYROXINE SODIUM INJ 100 MCG/5 ML VIAL 12.5 MCG IV PUSH (06:59)
[2021-06-14] MEDS: CENTRAL LINE FLUSH 10 ML IV PUSH ×3 (06:59→20:44)
[2021-06-14] MEDS: ENOXAPARIN 100 MG/ML SYRINGE SUB-Q ×2 (09:32→20:43)
[2021-06-14] MEDS: BARICITINIB 1 MG TABLET 4 MG PO (09:33)
[2021-06-14] MEDS: MINERAL OIL/WHITE PETROLATUM OINTMENT 1 APPLIC EACH EYE ×2 (09:33→20:43)
[2021-06-14] MEDS: PANTOPRAZOLE SODIUM IV 40 MG VIAL IV PUSH (09:33)
--- NOTE | 2021-06-14 10:54 | PCDIET ---
ICU Rounding Note: Patient tolerating Vital 1.2 at 50mL/hr goal rate with 30mL water flush every 4 hours. Last recorded weight is 108.4kg which is increased from last review. +I/O. Bowel Motility: BM x 2 overnight, per RN. Labs Reviewed: RBC (3.29), Hgb (9.9), Hct (30.7), BUN (30), Cr (0.5), Na (136), Ca (8.2) Meds Noted: Fentanyl, Synthroid, Reglan, Versed, Protonix Additional Notes: Friction area to medial neck. Following daily in ICU rounds. Assessing/reassessing every Monday/Monday.
--- NOTE | 2021-06-14 11:30 | WPDINTPN ---
Progress Note: A&P Assessment and Plan (1) Acute respiratory failure with hypoxia: Code(s): J96.01 - Acute respiratory failure with hypoxia Status: Acute Assessment and Plan: Secondary to extensive COVID pneumonia. Chest CTA on 05/29/2021 at outside facility was negative for pulmonary embolism. Currently sedated with propofol. Triglyceride level was normal Intubated on 06/01/2021 at outside facility. Currently on peep of 10 and 50% FiO2, wean FiO2 as tolerated, to maintain O2 sats greater than 92% ABG reviewed, Chest x-ray reviewed Will hold proning patient today as she has got a lot of facial swelling, also she is down to 50% and PEEP of 10 with adequate O2 sats in supine position -will diurese with Bumex today -sedated with fentanyl and Versed infusion (2) Pneumonia due to COVID-19 virus: Code(s): U07.1 - COVID-19; J12.82 - Pneumonia due to coronavirus disease 2019 Status: Acute Assessment and Plan: Patient has reportedly had COVID like symptoms for 3 weeks and she tested positive on 05/29/2021. She has completed a 5 day course of azithromycin . Her procalcitonin was normal Status post Dexamethasone (started 05/29) She has completed a 5 day course of remdesivir, will repeat another 5 day course of remdesivir (initiated on 06/08/2021) Continue baricitinib (started 05/31). Monitor inflammatory markers (3) Elevated LFTs: Code(s): R79.89 - Other specified abnormal findings of blood chemistry Status: Acute Assessment and Plan: Most likely secondary to COVID-19 +/- rhabdomyolysis. AST and ALT have trended down since admission. Viral hepatitis panel was negative Right upper quadrant ultrasound showed hepatic steatosis (4) Hypothyroidism: Code(s): E03.9 - Hypothyroidism, unspecified Status: Acute Assessment and Plan: Continue levothyroxine and TSH was normal (5) Hypernatremia: Code(s): E87.0 - Hyperosmolality and hypernatremia Status: Resolved Assessment and Plan: Resolved Additional Plan DVT prophylaxis -Lovenox subQ Stress ulcer prophylaxis -at PPI Nutrition -continue Tube Feeds. Continue Reglan, continue MiraLax, positive bowel movement in response to Dulcolax suppository 06/14/2021:Discussed with Cheyanne, patient's , updated him with patient's condition and plan of care. He is going to talk to an EMT and doctor in [place] who I told him not to get a tracheostomy for Elizabeth under any circumstances. I explained to the that this is a standard practice when patient cannot be weaned off the mechanical ventilator for prolonged amount of time, it is indicated to get a tracheostomy and a PEG tube placement and thereafter get rehab and hopefully decannulate the tracheostomy tube 06/12/2021: Discussed with Cheyanne, patient's , updated him with patient's condition and plan of care. I did explain to him that she is not being placed in prone position any longer. He stated that he has spoken to some of the earth moving machine operator up in [place] and he will NOT consent to tracheostomy Code Status - Full Code Total Critical Care Time - 34 minutes Due to a high probability of clinically significant, life threatening deterioration, the patient required my highest level of preparedness to intervene emergently and I personally spent this critical care time directly and personally managing the patient. This critical care time included obtaining a history; examining the patient; pulse oximetry; ordering and review of studies; arranging urgent treatment with development of a management plan; evaluation of patient's response to treatment; frequent reassessment; and discussions with other providers. It was exclusive of separately billable procedures and treating other patients and teaching time. Please see Assessment and Plan section and the rest of the note for further information on patient assessment and treatment Subjective Date/time seen: 10
[2021-06-14 12:12] LABS: Glucose Point of Care 107 mg/dl (65-105)
[2021-06-14] MEDS: BUMETANIDE INJ 1 MG/4 ML VIAL IV PUSH (13:34)
[2021-06-14] MEDS: MIDAZOLAM 100MG/NS 100ML(*CRX) 100 MG/100 ML BAG IV CONT (13:34)
--- NOTE | 2021-06-14 18:04 | WPDGICN ---
Assessment and Plan Assessment and plan (1) Pneumonia due to COVID-19 virus: Code(s): U07.1 - COVID-19; J12.82 - Pneumonia due to coronavirus disease 2018 Status: Acute Assessment and Plan: unfortunately still depending on ventilator, here with severe covid pneumonia (2) Feeding difficulty in adult: Code(s): R63.39 - Other feeding difficulties Status: Acute Assessment and Plan: will proceed with egd and g-tube placement for skilled nursing feeding (3) Acute respiratory failure with hypoxia: Code(s): J96.01 - Acute respiratory failure with hypoxia Status: Acute Assessment and Plan: eventually also will get tracheostomy (4) Elevated LFTs: Code(s): R79.89 - Other specified abnormal findings of blood chemistry Status: Acute Assessment and Plan: Most likely secondary to COVID-19 +/- rhabdomyolysis, now trended down since admission. Viral hepatitis panel was negative Right upper quadrant ultrasound reviewed, showed hepatic steatosis (5) Rhabdomyolysis: Code(s): M62.82 - Rhabdomyolysis Status: Resolved GI Consult Note Consult date/time: 06/14/21 18:04 Reason for consult: respiratory failure, severe covid pneumonia HPI: Elizabeth Britt is a 70 year old female with past medical history of hypertension, hypothyroidism, breast cancer, and anxiety who was admitted to the hospital 06/01/21 to ICU and intubated from [facility] after had COVID with acute hypoxic respiratory failure. Patient is not vaccinated for COVID-19. Hospital course complicated with elevated liver enzymes, rhabdomyolysis, respiratory failure now dependent on ventilator and family decided to proceed finally with PEG placement and also tracheostomy later this week. She is tolerating tube feeding by OGT. Review of Systems Review of Systems: ROS unobtainable: Yes unobtainable due to endotracheal tube and unobtainable due to mental status PMFSH Past Medical History Medical History (Updated 06/14/21 @ 18:10 by Flip Mcghee MD) Anxiety and depression Breast cancer Feeding difficulty in adult Hypertension Hypothyroidism Surgical History Surgical History History of cholecystectomy History of lumpectomy of both breasts History of shoulder surgery History of tubal ligation Family History Family History Other Cancer Heart disease Hypertension Social History Social History Social History: The patient lives in [place], [place]. She is a former smoker and quit in 2003. No mention of alcohol or illicit substance use. Her , Cheyanne Britt, is her surrogate decision maker. Code status: Full code. Spiritual care concerns: No Meds Home Medications and Allergies Home Medications Medication Instructions Recorded Confirmed Type levothyroxine 25 mcg PO DAILY 06/01/21 06/01/21 History lisinopril-hydrochlorothiazide 1 tablet PO DAILY 06/01/21 06/01/21 History sertraline 100 mg PO DAILY 06/01/21 06/01/21 History Allergies Allergy/AdvReac Type Severity Reaction Status Date / Time codeine Allergy Unknown Verified 06/01/21 16:18 latex Allergy Unknown Verified 06/01/21 16:18 morphine Allergy Unknown Verified 06/01/21 16:18 Vital Signs Vital Signs - 24 hr 06/13/21 20:00 06/13/21 20:04 06/13/21 20:45 Temperature 97.9 F Pulse Rate 63 67 65 Respiratory Rate 24 H 25 H Blood Pressure 109/62 Pulse Oximetry 94 95 06/13/21 22:00 06/13/21 23:19 06/14/21 00:00 Temperature 97.7 F 98.2 F Pulse Rate 65 65 64 Respiratory Rate 22 H 22 H Blood Pressure 103/66 99/67 L Pulse Oximetry 94 96 94 06/14/21 01:59 06/14/21 02:00 06/14/21 04:00 Temperature 97.9 F Pulse Rate 66 67 66 Respiratory Rate 22 H 24 H Blood Pressure 114/72 101/67 Pulse Oximetry 97 95 93 10
[2021-06-14 18:15] LABS: Glucose Point of Care 95 mg/dl (65-105)
[2021-06-15] VITALS (38 sets, daily range): BP systolic 90–129; BP diastolic 59–88; PULSE 50–107; RESP 22–32; TEMP 36.1–37.8; O2SAT 87–98
[2021-06-15] MEDS: METOCLOPRAMIDE HCL 10 MG/10 ML SOLN UDC FEED TUBE ×2 (00:16→05:58)
[2021-06-15 00:18] LABS: Glucose Point of Care 87 mg/dl (65-105)
[2021-06-15 04:14] LABS: Basophils Percent Auto 0.2 % (0.2-1.2); Eosinophils Absolute Auto 0.1 K/mm3 (0-0.3); Eosinophils Percent Auto 2.1 % (0-4.4); Hematocrit 27.9 % (37.0-47.0); Hemoglobin 8.8 g/dL (12.0-15.0); Immature Granulocyte Absolute 0.06 K/mm3 (0.00-0.031); Immature Granulocyte Percent A 1.1 % (0-0.5); Lymphocytes Absolute Auto 0.81 K/mm3 (0.9-3.2); Lymphocytes Percent Auto 15.3 % (18.3-44.2); Mean Corpuscular HGB Conc 31.5 g/dl (32-36); Mean Corpuscular Volume 95.2 fl (80-100); Mean Platelet Volume 10.6 fl (7.4-10.4); Monocytes Absolute Auto 0.3 K/mm3 (0.1-0.6); Monocytes Percent Auto 4.7 % (2.6-8.5); Neutrophils Percent Auto 76.6 % (45.5-73.1); Platelet Count Result 188 k/mm3 (150-375); Red Blood Count 2.93 M/mm3 (4.2-5.4); Red Cell Distribution Width 13.5 % (11.5-14.5); White Blood Count 5.3 K/mm3 (4.5-10.0)
[2021-06-15 04:25] LABS: INR 1.2; Prothrombin Time 14.8 Seconds (11.1-14.7)
[2021-06-15 04:26] LABS: Partial Thromboplastin Time 44.5 SECONDS (22.3-36.8)
[2021-06-15 04:55] LABS: Alanine Aminotransferase 38 U/L (4-35); Albumin Level 2.6 g/dL (3.5-5.1); Alkaline Phosphatase 48 U/L (38-126); Anion Gap 1 mmol/L (8-16); Aspartate Amino Transferase 31 U/L (14-36); Bilirubin,Total 0.6 mg/dL (0.2-1.3); Blood Urea Nitrogen 28 mg/dL (7-17); Carbon Dioxide 37 mmol/L (22-30); Chloride 98 mmol/L (98-107); Estimated CRCL calculation 108 ml/min; Estimated Glomerular Filt Rate > 60; Glucose 79 mg/dL (65-110); Magnesium 2.1 mg/dL (1.6-2.3); Phosphorus 2.7 mg/dL (2.5-4.5); Potassium 3.4 mmol/L (3.4-5.0); Sodium 136 mmol/L (137-145)
[2021-06-15 05:07] LABS: Alveolar/Arterial O2 Gradient 276.5 mmHg; Base Excess ABG 8.3 mEq/l (+/-2.0); Carboxyhemoglobin 0.3 % THb (0-2.0); Fractional Inspired Oxygen 55 %; HCO3 ABG 33.2 mEq/l (22.0-26.0); Methemoglobin ABG 0.1 %THb (0-1.5); Oxygen Content ABG 14.1 %vol (16.0-22.0); Oxyhemoglobin 91.6 % THb (90.0-100.0); PCO2 ABG 47.4 mmHg (35.0-45.0); PO2 ABG 62.9 mmHg (80.0-100.0); PO2 FiO2 Ratio Arterial Blood 1.14 %; Total Hemoglobin 10.9 g/dL (12.0-18.0); pH ABG 7.463 (7.350-7.450)
[2021-06-15 05:08] LABS: Arterial Blood Gas PEEP 10 cmH2O; Arterial Blood Gas Tidal Volume 330 ml; Arterial Blood Gas Vent Mode CMV; Arterial Blood Gas Ventilator rate 22 /MIN; Device VENTILATOR; Modified Allen's Test Unable to perform; Site Drawn RIGHT RADIAL
[2021-06-15] MEDS: CENTRAL LINE FLUSH 10 ML IV PUSH ×3 (05:58→21:22)
[2021-06-15] MEDS: LEVOTHYROXINE SODIUM INJ 100 MCG/5 ML VIAL 12.5 MCG IV PUSH (05:59)
[2021-06-15] MEDS: ROCURONIUM BROMIDE 50 MG/5 ML VIAL IV PUSH (08:24)
[2021-06-15] MEDS: MINERAL OIL/WHITE PETROLATUM OINTMENT 1 APPLIC EACH EYE ×2 (09:18→21:20)
[2021-06-15] MEDS: PANTOPRAZOLE SODIUM IV 40 MG VIAL IV PUSH (09:18)
[2021-06-15] MEDS: ENOXAPARIN 100 MG/ML SYRINGE SUB-Q ×2 (09:18→21:20)
[2021-06-15] MEDS: PROPOFOL IV EMULSION 100 ML 3.27 MG IV CONT (09:43)
--- NOTE | 2021-06-15 11:25 | WPDINTPN ---
Progress Note: A&P Assessment and Plan (1) Acute respiratory failure with hypoxia: Code(s): J96.01 - Acute respiratory failure with hypoxia Status: Acute Assessment and Plan: Secondary to extensive COVID pneumonia. Chest CTA on 05/29/2021 at outside facility was negative for pulmonary embolism. Currently sedated with propofol. Triglyceride level was normal Intubated on 06/01/2021 at outside facility. Currently on peep of 10 and 100% FiO2 ABG reviewed -peep increased to 12 Chest x-ray reviewed -advance ET tube by 2 cm Will check CTA to rule out PE and evaluate lungs for secondary pneumonia. Patient is afebrile and has normal white cell count has increased secretion. Will hold antibiotics at this time Patient was given dose of rocuronium. May need to restart Nimbex infusion Will prone again patient today -propofol was added to sedation off fentanyl and Versed infusion (2) Pneumonia due to COVID-19 virus: Code(s): U07.1 - COVID-19; J12.82 - Pneumonia due to coronavirus disease 2018 Status: Acute Assessment and Plan: Patient has reportedly had COVID like symptoms for 3 weeks and she tested positive on 05/29/2021. She has completed a 5 day course of azithromycin . Her procalcitonin was normal Status post Dexamethasone (started 05/29) She has completed a 5 day course of remdesivir, will repeat another 5 day course of remdesivir (initiated on 06/08/2021) She has completed a course of baricitinib (started 05/31). (3) Elevated LFTs: Code(s): R79.89 - Other specified abnormal findings of blood chemistry Status: Acute Assessment and Plan: Most likely secondary to COVID-19 +/- rhabdomyolysis. AST and ALT have trended down since admission. Viral hepatitis panel was negative Right upper quadrant ultrasound showed hepatic steatosis (4) Hypothyroidism: Code(s): E03.9 - Hypothyroidism, unspecified Status: Acute Assessment and Plan: Continue levothyroxine and TSH was normal (5) Hypernatremia: Code(s): E87.0 - Hyperosmolality and hypernatremia Status: Resolved Assessment and Plan: Resolved (6) Mottled skin: Code(s): L81.9 - Disorder of pigmentation, unspecified Status: Acute Assessment and Plan: Plantar surface of both feet appears mottled. Bilateral dorsalis pedis are palpable though weak Arterial and venous Dopplers were reviewed Blood pressure adequate. Maintain map Check CK Additional Plan DVT prophylaxis -Lovenox subQ Stress ulcer prophylaxis -at PPI Nutrition -PEG scheduled for today patient is currently off Tube Feeds. Continue Reglan, continue MiraLax, positive bowel movement in response to Dulcolax suppository 06/14/2021: Dr. Mujica discussed with Cheyanne, patient's , updated him with patient's condition and plan of care. He spoke to an EMT and a doctor in [place] who told him not to get a tracheostomy for Elizabeth under any circumstances. I explained to the that this is a standard practice when patient cannot be weaned off the mechanical ventilator for prolonged amount of time, it is indicated to get a tracheostomy and a PEG tube placement and thereafter get rehab and hopefully decannulate the tracheostomy tube Patient is scheduled for PEG placement today Code Status - Full Code Total Critical Care Time - 35 minutes Due to a high probability of clinically significant, life threatening deterioration, the patient required my highest level of preparedness to intervene emergently and I personally spent this critical care time directly and personally managing the patient. This critical care time included obtaining a history; examining the patient; pulse oximetry; ordering and review of studies; arranging urgent treatment with development of a management plan; evaluation of patient's response to treatment; frequent reassessment; and discussions with other providers. It was exclusive of separately bi
[2021-06-15] MEDS: MIDAZOLAM 100MG/NS 100ML(*CRX) 100 MG/100 ML BAG 6 MG IV CONT (11:48)
[2021-06-15] MEDS: FENTANYL 2,500MCG/NS250ML(*CRX 2,500 MCG/250 ML BAG 20 MCG IV CONT (11:50)
[2021-06-15 11:57] LABS: Glucose Point of Care 73 mg/dl (65-105)
[2021-06-15] MEDS: POTASSIUM CHLORIDE 20 MEQ PACKET (FOR LIQUID) 40 MEQ FEED TUBE (12:00)
--- NOTE | 2021-06-15 12:53 | PCDIET ---
Nutrition Follow-Up Complete: Nutrition Diagnosis: Inadequate oral intake related to intubation as evidenced by NPO. Nutrition Goal: Meet estimated nutritional needs. Goal in progress. Patient previously tolerating tube feedings, but currently NPO for PEG. Plan for tracheostomy later this week. Last recorded weight is 109 kg which is increased from last review, despite -I/O. Bowel Motility: BM x 1 today. Labs Reviewed: RBC (2.93), Hgb (8.8), Hct(27.9), Na (136), BUN (28), Cr (0.5), Meggan Ca (9.12), Alb (2.6) Meds Noted: Ancef, Fentanyl, Synthroid, Reglan, Versed, Protonix, Propofol (rate of 3.27mL/hr provides 86kcal per day) Additional Notes: Medial neck with friction area. No pressure sores documented. Will continue to monitor with same goal. Nutrition Monitoring and Evaluation: Follow up every Monday/Monday.
--- NOTE | 2021-06-15 17:36 | WPDCN ---
Assessment and Plan Assessment and plan (1) Acute respiratory failure with hypoxia: Code(s): J96.01 - Acute respiratory failure with hypoxia Status: Acute Assessment and Plan: I was consulted for possible tracheostomy in this 70y F with COVID-19 pneumonia, intubated since 06/01. Has had increased vent settings and PEEP of 10, just went to CT to r/o PE. Will anticipate tracheostomy this afternoon if pt remains stable. I saw in the note earlier today some concern from regarding tracheostomy placement and will be happy to address if there are further concerns. Alvin Frazier M.D. [facility] Data of Consult Date/Time: 06/15/21 17:36 Requesting Physician: Elisabet Rodgers MD Primary Care Provider: UNKNOWN,DOCTOR Consult Narrative Narrative: Elizabeth Britt is a 70 year old female admitted with COVID-19 pneumonia, intubated since 06/01 at outside hospital. Has not been able to wean from ventilator, ENT consulted for tracheostomy as part of halfway ventilatory requirements. Review of Systems Review of Systems: ROS unobtainable: Yes unobtainable due to endotracheal tube PMFSH Past Medical History Medical History Anxiety and depression Breast cancer Feeding difficulty in adult Hypertension Hypothyroidism Surgical History Surgical History History of cholecystectomy History of lumpectomy of both breasts History of shoulder surgery History of tubal ligation Family History Family History Other Cancer Heart disease Hypertension Social History Social History Social History: The patient lives in [place], [place]. She is a former smoker and quit in 2003. No mention of alcohol or illicit substance use. Her , Cheyanne Britt, is her surrogate decision maker. Code status: Full code. Spiritual care concerns: No Meds Home Medications and Allergies Home Medications Medication Instructions Recorded Confirmed Type levothyroxine 25 mcg PO DAILY 06/01/21 06/01/21 History lisinopril-hydrochlorothiazide 1 tablet PO DAILY 06/01/21 06/01/21 History sertraline 100 mg PO DAILY 06/01/21 06/01/21 History Allergies Allergy/AdvReac Type Severity Reaction Status Date / Time codeine Allergy Unknown Verified 06/01/21 16:18 latex Allergy Unknown Verified 06/01/21 16:18 morphine Allergy Unknown Verified 06/01/21 16:18 Vital Signs Vital Signs - 24 hr 06/14/21 17:51 06/14/21 17:52 06/14/21 18:00 Temperature 36.4 C Pulse Rate 52 L 59 L 58 L Respiratory Rate 22 H 22 H 22 H Blood Pressure 115/75 Pulse Oximetry 95 06/14/21 20:00 06/14/21 20:20 06/14/21 21:55 Temperature 36.3 C L Pulse Rate 58 L 68 57 L Respiratory Rate 22 H 22 H Blood Pressure 111/65 Pulse Oximetry 96 96 06/14/21 22:00 06/14/21 23:10 06/15/21 00:00 Temperature 36.1 C L Pulse Rate 58 L 56 L 57 L Respiratory Rate 22 H 22 H Blood Pressure 120/71 97/65 L Pulse Oximetry 96 95 97 06/15/21 00:29 06/15/21 00:30 06/15/21 02:00 Temperature Pulse Rate 57 L 57 L 50 L Respiratory Rate 22 H 22 H 22 H Blood Pressure 93/64 L Pulse Oximetry 97 06/15/21 02:14 06/15/21 04:00 06/15/21 04:39 Temperature 36.2 C L Pulse Rate 61 59 L 58 L Respiratory Rate 22 H Blood Pressure 99/67 L Pulse Oximetry 95 97 97 06/15/21 06:00 06/15/21 07:45 06/15/21 08:00 Temperature 37.3 C Pulse Rate 58 L 88 95 Respiratory Rate 22 H 29 H 24 H Blood Pressure 104/67 122/83 Pulse Oximetry 98 94 06/15/21 08:05 06/15/21 08:14 06/15/21 08:27 Temperature Pulse Rate 98 89 100 Respiratory Rate 28 H 32 H Blood Pressure Pulse Oximetry 92 06/15/21 08:43 06/15/21 09:43 06/15/21 09:49 Temperature Pulse Rate 107 H 91 92 Respiratory Rate 24 H 24 H Blood Pressure
[2021-06-15 18:26] LABS: Glucose Point of Care 72 mg/dl (65-105)
[2021-06-15 18:48] LABS: Creatine Kinase 97 U/L (30-135)
[2021-06-15] MEDS: PROPOFOL IV EMULSION 100 ML 9.81 MG IV CONT (21:32)
[2021-06-16] VITALS (31 sets, daily range): BP systolic 96–134; BP diastolic 56–81; PULSE 65–112; RESP 21–31; TEMP 36.3–38.8; O2SAT 92–98
[2021-06-16 00:31] LABS: Glucose Point of Care 72 mg/dl (65-105)
[2021-06-16] MEDS: FENTANYL 2,500MCG/NS250ML(*CRX 2,500 MCG/250 ML BAG 20 MCG IV CONT ×2 (00:58→15:00)
[2021-06-16 04:48] LABS: Alveolar/Arterial O2 Gradient 416.2 mmHg; Arterial Blood Gas PEEP 14 cmH2O; Arterial Blood Gas Tidal Volume 330 ml; Arterial Blood Gas Vent Mode CMV; Arterial Blood Gas Ventilator rate 22 /MIN; Base Excess ABG 8.3 mEq/l (+/-2.0); Carboxyhemoglobin 0.3 % THb (0-2.0); Device VENTILATOR; Fractional Inspired Oxygen 80 %; HCO3 ABG 33.8 mEq/l (22.0-26.0); Methemoglobin ABG 0.4 %THb (0-1.5); Modified Allen's Test Pass; Oxygen Content ABG 17.6 %vol (16.0-22.0); Oxygen Saturation ABG 97.7 % (95.0-100.0); Oxyhemoglobin 96.4 % THb (90.0-100.0); PCO2 ABG 50.7 mmHg (35.0-45.0); PO2 FiO2 Ratio Arterial Blood 1.26 %; Reduced Hemoglobin 2.9 %THb (0-5.0); Site Drawn LEFT RADIAL; Total Hemoglobin 12.9 g/dL (12.0-18.0); pH ABG 7.442 (7.350-7.450)
[2021-06-16] MEDS: MIDAZOLAM 100MG/NS 100ML(*CRX) 100 MG/100 ML BAG 6 MG IV CONT (05:07)
[2021-06-16 05:26] LABS: Hematocrit 28.6 % (37.0-47.0); Hemoglobin 9.3 g/dL (12.0-15.0); Mean Corpuscular HGB Conc 32.5 g/dl (32-36); Mean Corpuscular Hemoglobin 30.6 pg (26-34); Mean Corpuscular Volume 94.1 fl (80-100); Mean Platelet Volume 9.9 fl (7.4-10.4); Platelet Count Result 198 k/mm3 (150-375); Red Blood Count 3.04 M/mm3 (4.2-5.4); Red Cell Distribution Width 13.5 % (11.5-14.5); White Blood Count 9.8 K/mm3 (4.5-10.0)
[2021-06-16 05:39] LABS: Alanine Aminotransferase 37 U/L (4-35); Albumin Level 2.7 g/dL (3.5-5.1); Alkaline Phosphatase 59 U/L (38-126); Anion Gap 0 mmol/L (8-16); Aspartate Amino Transferase 33 U/L (14-36); Bilirubin,Total 1.1 mg/dL (0.2-1.3); Blood Urea Nitrogen 19 mg/dL (7-17); Calcium 8.3 mg/dL (8.4-10.2); Carbon Dioxide 36 mmol/L (22-30); Chloride 99 mmol/L (98-107); Estimated CRCL calculation 92 ml/min; Estimated Glomerular Filt Rate > 60; Glucose 89 mg/dL (65-110); Potassium 3.8 mmol/L (3.4-5.0); Sodium 135 mmol/L (137-145)
[2021-06-16] MEDS: CENTRAL LINE FLUSH 10 ML IV PUSH ×3 (05:55→21:26)
[2021-06-16] MEDS: LEVOTHYROXINE SODIUM INJ 100 MCG/5 ML VIAL 12.5 MCG IV PUSH (05:56)
[2021-06-16] MEDS: PROPOFOL IV EMULSION 100 ML 9.81 MG IV CONT (07:44)
[2021-06-16] MEDS: FUROSEMIDE INJ 40 MG/4 ML VIAL IV PUSH (08:49)
[2021-06-16] MEDS: ENOXAPARIN 100 MG/ML SYRINGE SUB-Q ×2 (08:49→21:25)
[2021-06-16] MEDS: MINERAL OIL/WHITE PETROLATUM OINTMENT 1 APPLIC EACH EYE ×2 (08:50→21:24)
[2021-06-16] MEDS: PANTOPRAZOLE SODIUM IV 40 MG VIAL IV PUSH (08:50)
--- NOTE | 2021-06-16 10:58 | WPDINTPN ---
Progress Note: A&P Assessment and Plan (1) Acute respiratory failure with hypoxia: Code(s): J96.01 - Acute respiratory failure with hypoxia Status: Acute Assessment and Plan: Secondary to extensive COVID pneumonia. Chest CTA on 05/29/2021 at outside facility was negative for pulmonary embolism. Currently sedated with propofol. Triglyceride level was normal Intubated on 06/01/2021 at outside facility. Currently on peep of 14 and 60% FiO2 ABG reviewed Chest x-ray reviewed 06/15 CTA IMPRESSION: 1. Diffuse COVID pneumonia, more confluence posteriorly. 2. Cardiomegaly. 3. No pulmonary emboli. Patient is afebrile and has normal white cell count. Will hold antibiotics at this time Will prone again patient today Continue propofol , fentanyl and Versed infusion Lasix IV x1 today (2) Pneumonia due to COVID-19 virus: Code(s): U07.1 - COVID-19; J12.82 - Pneumonia due to coronavirus disease 2018 Status: Acute Assessment and Plan: Patient has reportedly had COVID like symptoms for 3 weeks and she tested positive on 05/29/2021. She has completed a 5 day course of azithromycin . Her procalcitonin was normal Status post Dexamethasone (started 05/29) She has completed a 5 day course of remdesivir, will repeat another 5 day course of remdesivir (initiated on 06/08/2021) She has completed a course of baricitinib (started 05/31). (3) Elevated LFTs: Code(s): R79.89 - Other specified abnormal findings of blood chemistry Status: Acute Assessment and Plan: Most likely secondary to COVID-19 +/- rhabdomyolysis. AST and ALT have trended down since admission. Viral hepatitis panel was negative Right upper quadrant ultrasound showed hepatic steatosis (4) Hypothyroidism: Code(s): E03.9 - Hypothyroidism, unspecified Status: Acute Assessment and Plan: Continue levothyroxine and TSH was normal (5) Mottled skin: Code(s): L81.9 - Disorder of pigmentation, unspecified Status: Acute Assessment and Plan: Plantar surface of both feet appears mottled. Bilateral dorsalis pedis are palpable though weak Arterial and venous Dopplers were reviewed Blood pressure adequate. Maintain map Normal CK Additional Plan DVT prophylaxis -Lovenox subQ Stress ulcer prophylaxis -at PPI Nutrition -PEG placed, will resume Tube Feeds. Continue Reglan, continue MiraLax, and p.r.n. Dulcolax suppository Trach scheduled for tomorrow Code Status - Full Code Total Critical Care Time - 30 minutes Due to a high probability of clinically significant, life threatening deterioration, the patient required my highest level of preparedness to intervene emergently and I personally spent this critical care time directly and personally managing the patient. This critical care time included obtaining a history; examining the patient; pulse oximetry; ordering and review of studies; arranging urgent treatment with development of a management plan; evaluation of patient's response to treatment; frequent reassessment; and discussions with other providers. It was exclusive of separately billable procedures and treating other patients and teaching time. Please see Assessment and Plan section and the rest of the note for further information on patient assessment and treatment Subjective Date/time seen: 06/16/21 10:58 Overnight events reviewed. Afebrile Continues to be on mechanical ventilation Decreased urine output Vitals acceptable CTA chest was done yesterday PEG tube was placed yesterday Interval history: Reason for consult: COVID-19 pneumonia, acute respiratory failure, intubated on 06/01/2021 at outside facility, patient has not been vaccinated for COVID-19 06/15/2021 -PEG tube placed Review of Systems Review of Systems: ROS unobtainable: Yes unobtainable due to endotracheal tube, unobtainable due to medical condition and unobtainable due to mental status Exam Narrative: Loren
--- NOTE | 2021-06-16 11:51 | PCDIET ---
ICU Rounding Note: Tube feedings remain on hold following PEG. Per RN, GI ordered to start feedings at 20mL/hr at 1400 today and advance toward goal. Last recorded weight is 104.7kg which is down from last review. Bowel Motility: Last documented BM on 06/15/21 x 1. Labs Reviewed: WBC (16.4), RBC (3.15), Hgb (8.8), Hct (29.8), Glu (154), Cr (0.4), Alb (3.4) Meds Noted: Propofol (rate of 9.81mL/hr provides 258kcal per day), Fentanyl, Synthroid, Reglan, Versed, Protonix, Lasix Additional Notes: Medial neck with friction area. RN reports previously had some bleeding around PEG site. Following daily in ICU rounds. Assessing/reassessing every Monday/Monday.
--- NOTE | 2021-06-16 12:18 | WPDGIPROGNO ---
Progress Note: A&P Assessment and Plan (1) Pneumonia due to COVID-19 virus: Code(s): U07.1 - COVID-19; J12.82 - Pneumonia due to coronavirus disease 2019 Status: Acute Assessment and Plan: still severe, on medical treatment by icu team (2) Feeding difficulty in adult: Code(s): R63.39 - Other feeding difficulties Status: Acute Assessment and Plan: currently on hold because she is in prone position, to be resumed after she is back in regular position (3) Acute respiratory failure with hypoxia: Code(s): J96.01 - Acute respiratory failure with hypoxia Status: Acute Assessment and Plan: CTA chest reviewed, still sick (4) Elevated LFTs: Code(s): R79.89 - Other specified abnormal findings of blood chemistry Status: Acute Assessment and Plan: almost back to normal, probably from severe covid Subjective Date/time seen: 06/16/21 12:18 Interval history: PEG placed yesterday, she had more respiratory distress and had CTA chest that showed diffuse COVID pneumonia, more confluence posteriorly, cardiomegaly, no pulmonary emboli. Now she is in prone position. RN reports that some bleeding in peg site and dressing changed. Review of Systems Review of Systems: All systems reviewed & are unremarkable except as noted in HPI and below Exam Const: Other: still ill, in prone position HENMT: General nose exam: Normal nares present Eyes: Sclera: sclerae normal Neck: Neck: supple Resp: Auscultation: rales and rhonchi Cardio: Rate: regular rate GI: GI Palp: Yes Soft to palpation and No Guarding due to palpation present (GI) Auscultation: normal bowel sounds Other: G-tube in position (right now in prone position and could not assess site) Urinary Catheter: Urinary Catheter: patent and draining Skin: Other: mottled skin Neuro: Other: sedated Extrem: General: pedal edema Objective Data Vital Signs Vital Signs: Vital Signs - 24 hr 06/15/21 14:00 06/15/21 14:19 06/15/21 15:00 Temperature Pulse Rate 76 77 79 Respiratory Rate 22 H 22 H Blood Pressure 92/62 L 90/67 L Pulse Oximetry 94 94 06/15/21 15:06 06/15/21 15:10 06/15/21 15:15 Temperature Pulse Rate 77 81 88 Respiratory Rate 22 H 23 H Blood Pressure 118/75 129/88 Pulse Oximetry 94 94 94 06/15/21 16:00 06/15/21 18:00 06/15/21 18:18 Temperature 99.2 F 99.7 F H Pulse Rate 75 78 68 Respiratory Rate 22 H 22 H Blood Pressure 96/67 L 95/59 L Pulse Oximetry 94 97 97 06/15/21 18:21 06/15/21 18:23 06/15/21 19:06 Temperature Pulse Rate 73 73 90 Respiratory Rate 22 H 22 H 24 H Blood Pressure Pulse Oximetry 06/15/21 19:44 06/15/21 20:00 06/15/21 21:32 Temperature 99.1 F Pulse Rate 86 88 87 Respiratory Rate 22 H 24 H Blood Pressure 115/74 Pulse Oximetry 94 98 06/15/21 22:00 06/15/21 22:55 06/16/21 00:00 Temperature 97.4 F L Pulse Rate 86 88 85 Respiratory Rate 22 H 22 H Blood Pressure 125/79 121/76 Pulse Oximetry 94 93 98 06/16/21 00:58 06/16/21 02:00 06/16/21 02:28 Temperature Pulse Rate 84 78 78 Respiratory Rate 24 H 22 H Blood Pressure 114/73 Pulse Oximetry 98 98 06/16/21 04:00 06/16/21 04:52 06/16/21 05:07 Temperature 97.9 F Pulse Rate 76 73 74 Respiratory Rate 22 H 22 H Blood Pressure 134/79 Pulse Oximetry 94 98 06/16/21 05:52 06/16/21 06:00 06/16/21 07:44 Temperature Pulse Rate 71 70 68 Respiratory Rate 22 H 22 H 26 H Blood Pressure 102/61 Pulse Oximetry 98 06/16/21 08:00 06/16/21 09:44 06/16/21 10:00 Temperature 97.5 F L Pulse Rate 70 65 70 Respiratory Rate 27 H 22 H Blood Pressure 103/77 107/69 Pulse Oximetry 98 96 96 06/16/21 11:25 Temperature Pulse Rate 73 Respiratory Rate Blood Pressure Pulse Oximetry 95 Intake/Output Intake/Output: Intake & Output 06/13/21 06/14/21 06/15/21 06/16/21 23:59 23:59 23:59 23:59 Intake Total 1761 1895.4 1098.6 350 O
[2021-06-16 12:25] LABS: Glucose Point of Care 63 mg/dl (65-105)
[2021-06-16] MEDS: DEXTROSE 50% 25 GM/50 ML SYRINGE IV PUSH ×2 (12:53→18:24)
[2021-06-16] MEDS: PROPOFOL IV EMULSION 100 ML 13.08 MG IV CONT (15:59)
[2021-06-16 18:23] LABS: Glucose Point of Care 58 mg/dl (65-105)
[2021-06-16] MEDS: PROPOFOL IV EMULSION 100 ML 19.62 MG IV CONT (21:19)
[2021-06-16] MEDS: MIDAZOLAM 100MG/NS 100ML(*CRX) 100 MG/100 ML BAG 8 MG IV CONT (21:21)
[2021-06-16] MEDS: METOCLOPRAMIDE HCL 10 MG/10 ML SOLN UDC FEED TUBE (21:23)
[2021-06-17] VITALS (36 sets, daily range): BP systolic 91–120; BP diastolic 59–80; PULSE 70–97; RESP 22; TEMP 35.8–38.1; O2SAT 88–98
[2021-06-17] MEDS: METOCLOPRAMIDE HCL 10 MG/10 ML SOLN UDC FEED TUBE ×4 (00:05→18:19)
[2021-06-17 00:42] LABS: Glucose Point of Care 97 mg/dl (65-105)
[2021-06-17] MEDS: PROPOFOL IV EMULSION 100 ML 19.62 MG IV CONT ×3 (02:39→18:19)
[2021-06-17] MEDS: FENTANYL 2,500MCG/NS250ML(*CRX 2,500 MCG/250 ML BAG 20 MCG IV CONT ×2 (04:06→16:42)
[2021-06-17 05:24] LABS: Alveolar/Arterial O2 Gradient 388.1 mmHg; Base Excess ABG 6.6 mEq/l (+/-2.0); Carboxyhemoglobin 0.3 % THb (0-2.0); Fractional Inspired Oxygen 80 %; HCO3 ABG 31.4 mEq/l (22.0-26.0); Methemoglobin ABG 0.1 %THb (0-1.5); Oxygen Content ABG 16.4 %vol (16.0-22.0); Oxygen Saturation ABG 98.8 % (95.0-100.0); Oxyhemoglobin 97.5 % THb (90.0-100.0); PCO2 ABG 45.8 mmHg (35.0-45.0); PO2 ABG 134.2 mmHg (80.0-100.0); PO2 FiO2 Ratio Arterial Blood 1.68 %; Reduced Hemoglobin 2.1 %THb (0-5.0); Total Hemoglobin 11.8 g/dL (12.0-18.0); pH ABG 7.454 (7.350-7.450)
[2021-06-17 05:25] LABS: Arterial Blood Gas Vent Mode CMV; Arterial Blood Gas Ventilator rate 22 /MIN; Device VENTILATOR; Modified Allen's Test Pass; Site Drawn RIGHT RADIAL
[2021-06-17 05:26] LABS: Arterial Blood Gas PEEP 14 cmH2O; Arterial Blood Gas Tidal Volume 330 ml
[2021-06-17 05:51] LABS: Hematocrit 28.2 % (37.0-47.0); Hemoglobin 9.2 g/dL (12.0-15.0); Mean Corpuscular HGB Conc 32.6 g/dl (32-36); Mean Corpuscular Hemoglobin 30.3 pg (26-34); Mean Corpuscular Volume 92.8 fl (80-100); Mean Platelet Volume 10.2 fl (7.4-10.4); Platelet Count Result 185 k/mm3 (150-375); Red Blood Count 3.04 M/mm3 (4.2-5.4); Red Cell Distribution Width 13.5 % (11.5-14.5); White Blood Count 12.2 K/mm3 (4.5-10.0)
[2021-06-17 06:02] LABS: Alanine Aminotransferase 46 U/L (4-35); Albumin Level 2.8 g/dL (3.5-5.1); Alkaline Phosphatase 62 U/L (38-126); Anion Gap 3 mmol/L (8-16); Aspartate Amino Transferase 56 U/L (14-36); Bilirubin,Total 1.4 mg/dL (0.2-1.3); Blood Urea Nitrogen 18 mg/dL (7-17); Calcium 8.5 mg/dL (8.4-10.2); Carbon Dioxide 37 mmol/L (22-30); Chloride 96 mmol/L (98-107); Estimated CRCL calculation 90 ml/min; Estimated Glomerular Filt Rate > 60; Glucose 127 mg/dL (65-110); Magnesium 2.3 mg/dL (1.6-2.3); Potassium 3.5 mmol/L (3.4-5.0); Sodium 136 mmol/L (137-145)
[2021-06-17] MEDS: LEVOTHYROXINE SODIUM INJ 100 MCG/5 ML VIAL 12.5 MCG IV PUSH (06:47)
[2021-06-17] MEDS: CENTRAL LINE FLUSH 10 ML IV PUSH ×3 (06:47→22:41)
[2021-06-17] MEDS: MINERAL OIL/WHITE PETROLATUM OINTMENT 1 APPLIC EACH EYE ×2 (09:39→22:40)
[2021-06-17] MEDS: PANTOPRAZOLE SODIUM IV 40 MG VIAL IV PUSH (09:40)
[2021-06-17] MEDS: ENOXAPARIN 100 MG/ML SYRINGE SUB-Q ×2 (09:40→23:45)
--- NOTE | 2021-06-17 10:32 | WPDINTPN ---
Progress Note: A&P Assessment and Plan (1) Acute respiratory failure with hypoxia: Code(s): J96.01 - Acute respiratory failure with hypoxia Status: Acute Assessment and Plan: Secondary to extensive COVID pneumonia. Chest CTA on 05/29/2021 at outside facility was negative for pulmonary embolism. Currently sedated with propofol. Triglyceride level was normal Intubated on 06/01/2021 at outside facility. Currently on peep of 14 and 80% FiO2 in prone position. Patient does not tolerate supine position well and her oxygen requirement quickly goes up every time she has turned supine.. Continue daily prone ventilation for 18 hours as tolerated ABG reviewed decrease rate to 20 Chest x-ray pending for today 06/15 CTA IMPRESSION: 1. Diffuse COVID pneumonia, more confluence posteriorly. 2. Cardiomegaly. 3. No pulmonary emboli. Patient is afebrile and has normal white cell count. Will hold antibiotics at this time Continue propofol , fentanyl and Versed infusion Will repeat Lasix IV x1 today (2) Pneumonia due to COVID-19 virus: Code(s): U07.1 - COVID-19; J12.82 - Pneumonia due to coronavirus disease 2019 Status: Acute Assessment and Plan: Patient has reportedly had COVID like symptoms for 3 weeks and she tested positive on 05/29/2021. She has completed a 5 day course of azithromycin . Her procalcitonin was normal Status post Dexamethasone (started 05/29) She has completed a 5 day course of remdesivir, will repeat another 5 day course of remdesivir (initiated on 06/08/2021) She has completed a course of baricitinib (started 05/31). (3) Elevated LFTs: Code(s): R79.89 - Other specified abnormal findings of blood chemistry Status: Acute Assessment and Plan: Most likely secondary to COVID-19 +/- rhabdomyolysis. AST and ALT have trended down since admission. Viral hepatitis panel was negative Right upper quadrant ultrasound showed hepatic steatosis (4) Hypothyroidism: Code(s): E03.9 - Hypothyroidism, unspecified Status: Acute Assessment and Plan: Continue levothyroxine and TSH was normal (5) Mottled skin: Code(s): L81.9 - Disorder of pigmentation, unspecified Status: Acute Assessment and Plan: Plantar surface of both feet appears mottled. Bilateral dorsalis pedis are palpable though weak Arterial and venous Dopplers were reviewed Blood pressure adequate. Maintain map Normal CK Additional Plan DVT prophylaxis -Lovenox subQ Stress ulcer prophylaxis -at PPI Nutrition -PEG placed, will resume Tube Feeds. Continue Reglan, continue MiraLax, and p.r.n. Dulcolax suppository Trach was scheduled but has been postponed at this time due to increased oxygen requirement and need for daily prone ventilation Code Status - Full Code I spoke to patient's by phone today and updated him with patient's current status, current treatment plan and answered his questions Total Critical Care Time - 31 minutes Due to a high probability of clinically significant, life threatening deterioration, the patient required my highest level of preparedness to intervene emergently and I personally spent this critical care time directly and personally managing the patient. This critical care time included obtaining a history; examining the patient; pulse oximetry; ordering and review of studies; arranging urgent treatment with development of a management plan; evaluation of patient's response to treatment; frequent reassessment; and discussions with other providers. It was exclusive of separately billable procedures and treating other patients and teaching time. Please see Assessment and Plan section and the rest of the note for further information on patient assessment and treatment Subjective Date/time seen: 06/17/21 10:32 Overnight events reviewed. Afebrile Continues to be on mechanical ventilation with FiO2 of 80% and PEEP of 14 Continues to be on sedation V
--- NOTE | 2021-06-17 10:55 | PCDIET ---
ICU Rounding Note: Patient tolerating Vital 1.2 at 40mL/hr with plan to advance to goal of 50mL/hr. Continues to receive 30mL water flushes every 4 hours. Last recorded weight is 102.5kg which is down from last review. Bowel Motility: Last documented BM on 06/15/21 x 1. Labs Reviewed: WBC (12.2), RBC (3.04), Hgb (9.2), Hct (28.2), Glu (127), BUN (18), Cr (0.6), Na (136), Alb (2.8) Meds Noted: Fentanyl, Synthroid, Reglan, Versed, Protonix, Propofol (rate of 19.62mL/hr provides 517kcal per day) Additional Notes: Medial neck with friction area. Following daily in ICU rounds. Assessing/reassessing every Monday/Monday.
[2021-06-17] MEDS: FUROSEMIDE INJ 40 MG/4 ML VIAL IV PUSH (10:57)
[2021-06-17 12:53] LABS: Glucose Point of Care 104 mg/dl (65-105)
[2021-06-17] MEDS: MIDAZOLAM 100MG/NS 100ML(*CRX) 100 MG/100 ML BAG 6 MG IV CONT (13:05)
--- NOTE | 2021-06-17 15:38 | PM.IMPN ---
Progress Note: A&P Assessment and Plan (1) Acute respiratory failure with hypoxia: Code(s): J96.01 - Acute respiratory failure with hypoxia Status: Acute Assessment and Plan: Secondary to extensive COVID pneumonia. Intubated since 06/01 in outside facility ? consideration of a trach continue prone positioning to improve oxygenation SP PEG yesterday under Gi for nutrition (2) Pneumonia due to COVID-19 virus: Code(s): U07.1 - COVID-19; J12.82 - Pneumonia due to coronavirus disease 2018 Status: Acute Assessment and Plan: Interval history from ICU: Patient has reportedly had COVID like symptoms for 3 weeks and she tested positive on 05/29/2021. She has completed a 5 day course of azithromycin. Status post Dexamethasone (started 05/29) She has completed a 5 day course of remdesivir, will repeat another 5 day course of remdesivir (initiated on 06/08/2021) She has completed a course of baricitinib (started 05/31). (3) Elevated LFTs: Code(s): R79.89 - Other specified abnormal findings of blood chemistry Status: Acute Assessment and Plan: Most likely secondary to COVID-19 +/- rhabdomyolysis. (4) Hypothyroidism: Code(s): E03.9 - Hypothyroidism, unspecified Status: Acute Assessment and Plan: Continue levothyroxine and TSH was normal (5) Mottled skin: Code(s): L81.9 - Disorder of pigmentation, unspecified Status: Acute Assessment and Plan: Plantar surface of both feet appears mottled. Bilateral dorsalis pedis are palpable though weak Subjective Date/time seen: 06/17/21 15:38 Interval history: 70-year-old female with hypertension, hypothyroidism, breast cancer, and anxiety who is being directly admitted to the intensive care unit from [facility] for further treatment of acute hypoxic respiratory failure secondary to COVID-19 pneumonia. TRansfered from [facility] for higher level of care for covid. Pt intubated on 06/01/2021 at outside facility, slow to improve 06/15/2021 -PEG tube placed considerations of a Tracheostomy Discussed with ICU and GI MDs Review of Systems Review of Systems: All systems reviewed & are unremarkable except as noted in HPI and below Exam Narrative: General: elderly lady intubated. Respiratory: Sedated on mechanical ventilation. Gastrointestinal: Abdomen is soft, obese, nontender, and nondistended with positive bowel sounds. with PEG tube insitu Genitourinary: Milligan catheter draining clear, light yellow urine. Skin: Warm and dry. No rash or lesions on limited exam. Extremities: No cyanosis or clubbing. no edema Neurological: difficult to assess Objective Data Vital Signs Vital Signs: Vital Signs - 24 hr 06/16/21 15:59 06/16/21 16:00 06/16/21 17:19 Temperature 36.6 C Pulse Rate 86 86 97 Respiratory Rate 26 H 28 H 31 H Blood Pressure 122/81 Pulse Oximetry 94 06/16/21 17:45 06/16/21 18:00 06/16/21 18:31 Temperature 37.9 C H Pulse Rate 112 H 100 100 Respiratory Rate 21 H 21 H Blood Pressure 108/56 L Pulse Oximetry 94 94 06/16/21 20:00 06/16/21 20:09 06/16/21 21:19 Temperature 38.8 C H Pulse Rate 95 98 95 Respiratory Rate 22 H 22 H Blood Pressure 101/61 Pulse Oximetry 94 95 06/16/21 21:21 06/16/21 22:00 06/16/21 23:07 Temperature Pulse Rate 96 96 95 Respiratory Rate 22 H 22 H Blood Pressure 104/62 Pulse Oximetry 94 92 06/17/21 00:00 06/17/21 00:05 06/17/21 02:00 Temperature 38.1 C H Pulse Rate 97 97 92 Respiratory Rate 22 H 22 H 22 H Blood Pressure 109/71 114/76 Pulse Oximetry 92 92 06/17/21 02:39 06/17/21 02:49 06/17/21 04:00 Temperature 36.3 C L Pulse Rate 90 87 78 Respiratory Rate 22 H 22 H Blood Pressure 107/69 Pulse Oximetry 93 95 06/17/21 04:06 06/17/21 05:01 06/17/21 06:00 Temperature Pulse Rate 79 74 70 Respiratory Rate 22 H 22 H Blood Pressure 104/7
--- NOTE | 2021-06-17 16:32 | WPDGIPROGNO ---
Progress Note: A&P Assessment and Plan (1) Pneumonia due to COVID-19 virus: Code(s): U07.1 - COVID-19; J12.82 - Pneumonia due to coronavirus disease 2019 Status: Acute Assessment and Plan: still severe, on medical treatment by icu team (2) Feeding difficulty in adult: Code(s): R63.39 - Other feeding difficulties Status: Acute Assessment and Plan: tube feeding by peg will follow [place], call if questions (3) Acute respiratory failure with hypoxia: Code(s): J96.01 - Acute respiratory failure with hypoxia Status: Acute Assessment and Plan: intubated (4) Elevated LFTs: Code(s): R79.89 - Other specified abnormal findings of blood chemistry Status: Acute Assessment and Plan: almost back to normal, probably from severe covid Subjective Date/time seen: 06/17/21 16:32 Interval history: still sick, no major changes Review of Systems Review of Systems: All systems reviewed & are unremarkable except as noted in HPI and below Exam Const: Other: still ill, intubated and sedated HENMT: General nose exam: Normal nares present Eyes: Sclera: sclerae normal Neck: Neck: supple Resp: Auscultation: rales and rhonchi Cardio: Rate: regular rate GI: GI Palp: Yes Soft to palpation and No Guarding due to palpation present (GI) Auscultation: normal bowel sounds Other: G-tube in position Urinary Catheter: Urinary Catheter: patent and draining Skin: Other: mottled skin Neuro: Other: sedated Extrem: General: pedal edema Objective Data Vital Signs Vital Signs: Vital Signs - 24 hr 06/16/21 17:19 06/16/21 17:45 06/16/21 18:00 Temperature 100.2 F H Pulse Rate 97 112 H 100 Respiratory Rate 31 H 21 H Blood Pressure 108/56 L Pulse Oximetry 94 94 06/16/21 18:31 06/16/21 20:00 06/16/21 20:09 Temperature 101.9 F H Pulse Rate 100 95 98 Respiratory Rate 21 H 22 H Blood Pressure 101/61 Pulse Oximetry 94 95 06/16/21 21:19 06/16/21 21:21 06/16/21 22:00 Temperature Pulse Rate 95 96 96 Respiratory Rate 22 H 22 H 22 H Blood Pressure 104/62 Pulse Oximetry 94 06/16/21 23:07 06/17/21 00:00 06/17/21 00:05 Temperature 100.6 F H Pulse Rate 95 97 97 Respiratory Rate 22 H 22 H Blood Pressure 109/71 Pulse Oximetry 92 92 06/17/21 02:00 06/17/21 02:39 06/17/21 02:49 Temperature Pulse Rate 92 90 87 Respiratory Rate 22 H 22 H Blood Pressure 114/76 Pulse Oximetry 92 93 06/17/21 04:00 06/17/21 04:06 06/17/21 05:01 Temperature 97.4 F L Pulse Rate 78 79 74 Respiratory Rate 22 H 22 H Blood Pressure 107/69 Pulse Oximetry 95 95 06/17/21 06:00 06/17/21 06:45 06/17/21 06:46 Temperature Pulse Rate 70 71 70 Respiratory Rate 22 H 22 H 22 H Blood Pressure 104/70 Pulse Oximetry 96 06/17/21 08:00 06/17/21 08:03 06/17/21 08:15 Temperature 96.5 F L Pulse Rate 72 72 72 Respiratory Rate 22 H 22 H 22 H Blood Pressure 91/68 L Pulse Oximetry 94 94 06/17/21 10:00 06/17/21 10:06 06/17/21 12:00 Temperature 97.2 F L Pulse Rate 74 78 75 Respiratory Rate 22 H 22 H Blood Pressure 111/74 120/80 Pulse Oximetry 88 L 95 93 06/17/21 13:05 06/17/21 13:23 06/17/21 14:00 Temperature Pulse Rate 78 80 83 Respiratory Rate 22 H 22 H Blood Pressure 107/71 Pulse Oximetry 92 89 L Intake/Output Intake/Output: Intake & Output 06/14/21 06/15/21 06/16/21 06/17/21 23:59 23:59 23:59 23:59 Intake Total 1895.4 1098.6 890.0 975 Output Total 2150 925 2425 1150 Balance -254.6 173.6 -1535.0 -175 Meds/Results Medications: Active Medications Generic Name Dose Route Start Last Admin Trade Name Freq PRN Reason Stop Dose Admin Acetaminophen 650 mg 06/01/21 18:16 Acetaminophen Elixir 325 Mg/10.15 Ml Udc PO Q6H PRN Mild Pain (1-3) or Fever Bisacodyl 10 mg 06/07/21 10:08 06/08/21 06:00 Bisacodyl 10 Mg Suppository RECTAL 10 mg QAM PRN Administra
[2021-06-17 18:26] LABS: Glucose Point of Care 91 mg/dl (65-105)
[2021-06-18] VITALS (37 sets, daily range): BP systolic 88–120; BP diastolic 34–75; PULSE 76–101; RESP 21–35; TEMP 36.2–39.1; O2SAT 88–97
[2021-06-18] MEDS: METOCLOPRAMIDE HCL 10 MG/10 ML SOLN UDC FEED TUBE ×5 (00:15→23:58)
[2021-06-18 00:27] LABS: Glucose Point of Care 110 mg/dl (65-105)
[2021-06-18] MEDS: PROPOFOL IV EMULSION 100 ML 13.08 MG IV CONT ×2 (02:45→12:33)
[2021-06-18 04:55] LABS: Alveolar/Arterial O2 Gradient 428.3 mmHg; Base Excess ABG 9.2 mEq/l (+/-2.0); Carboxyhemoglobin 0.3 % THb (0-2.0); Fractional Inspired Oxygen 80 %; HCO3 ABG 34.7 mEq/l (22.0-26.0); Methemoglobin ABG 0.2 %THb (0-1.5); Oxyhemoglobin 95.6 % THb (90.0-100.0); PCO2 ABG 51.1 mmHg (35.0-45.0); PO2 ABG 88.5 mmHg (80.0-100.0); PO2 FiO2 Ratio Arterial Blood 1.11 %; Reduced Hemoglobin 3.9 %THb (0-5.0); Total Hemoglobin 12.6 g/dL (12.0-18.0)
[2021-06-18 04:56] LABS: Arterial Blood Gas Vent Mode CMV; Arterial Blood Gas Ventilator rate 22 /MIN; Device VENTILATOR; Modified Allen's Test Pass; Site Drawn RIGHT RADIAL
[2021-06-18 04:57] LABS: Arterial Blood Gas PEEP 14 cmH2O; Arterial Blood Gas Tidal Volume 330 ml
[2021-06-18] MEDS: MIDAZOLAM 100MG/NS 100ML(*CRX) 100 MG/100 ML BAG 6 MG IV CONT ×2 (05:30→20:20)
[2021-06-18] MEDS: CENTRAL LINE FLUSH 10 ML IV PUSH ×3 (05:48→20:22)
[2021-06-18] MEDS: LEVOTHYROXINE SODIUM INJ 100 MCG/5 ML VIAL 12.5 MCG IV PUSH (05:49)
[2021-06-18 06:42] LABS: Hematocrit 25.8 % (37.0-47.0); Hemoglobin 8.2 g/dL (12.0-15.0); Mean Corpuscular HGB Conc 31.8 g/dl (32-36); Mean Corpuscular Hemoglobin 29.5 pg (26-34); Mean Corpuscular Volume 92.8 fl (80-100); Mean Platelet Volume 10.9 fl (7.4-10.4); Platelet Count Result 194 k/mm3 (150-375); Red Blood Count 2.78 M/mm3 (4.2-5.4); Red Cell Distribution Width 13.3 % (11.5-14.5); White Blood Count 10.7 K/mm3 (4.5-10.0)
[2021-06-18 06:56] LABS: Alanine Aminotransferase 46 U/L (4-35); Albumin Level 2.9 g/dL (3.5-5.1); Alkaline Phosphatase 70 U/L (38-126); Aspartate Amino Transferase 72 U/L (14-36); Blood Urea Nitrogen 19 mg/dL (7-17); Calcium 8.3 mg/dL (8.4-10.2); Carbon Dioxide > 40 mmol/L (22-30); Chloride 97 mmol/L (98-107); Estimated CRCL calculation 128 ml/min; Estimated Glomerular Filt Rate > 60; Glucose 86 mg/dL (65-110); Magnesium 2.2 mg/dL (1.6-2.3); Potassium 3.1 mmol/L (3.4-5.0); Sodium 137 mmol/L (137-145)
[2021-06-18] MEDS: FENTANYL 2,500MCG/NS250ML(*CRX 2,500 MCG/250 ML BAG 15 MCG IV CONT (06:58)
[2021-06-18] MEDS: ENOXAPARIN 100 MG/ML SYRINGE SUB-Q (09:41)
[2021-06-18] MEDS: MINERAL OIL/WHITE PETROLATUM OINTMENT 1 APPLIC EACH EYE ×2 (09:42→20:21)
[2021-06-18] MEDS: PANTOPRAZOLE SODIUM IV 40 MG VIAL IV PUSH (09:42)
--- NOTE | 2021-06-18 10:54 | WPDINTPN ---
Progress Note: A&P Assessment and Plan (1) Acute respiratory failure with hypoxia: Code(s): J96.01 - Acute respiratory failure with hypoxia Status: Acute Assessment and Plan: Secondary to extensive COVID pneumonia. Chest CTA on 05/29/2021 at outside facility was negative for pulmonary embolism. Currently sedated with propofol. Triglyceride level was normal Intubated on 06/01/2021 at outside facility. Currently on peep of 14 and 80% FiO2 in prone position. Patient does not tolerate supine position well and her oxygen requirement quickly goes up every time she has turned supine.. Continue daily prone ventilation for 18 hours as tolerated Patient was scheduled for tracheostomy but tracheostomy had to be canceled due to increased oxygen requirement and need for prone ventilation ABG reviewed decrease rate to 20 Chest x-ray reviewed -advance ET tube by 2 cm 06/15 CTA IMPRESSION: 1. Diffuse COVID pneumonia, more confluence posteriorly. 2. Cardiomegaly. 3. No pulmonary emboli. Patient is afebrile and has normal white cell count. Will hold antibiotics at this time Continue propofol , fentanyl and Versed infusion Will repeat Lasix IV x1 today (2) Pneumonia due to COVID-19 virus: Code(s): U07.1 - COVID-19; J12.82 - Pneumonia due to coronavirus disease 2019 Status: Acute Assessment and Plan: Patient has reportedly had COVID like symptoms for 3 weeks and she tested positive on 05/29/2021. She has completed a 5 day course of azithromycin . Her procalcitonin was normal Status post Dexamethasone (started 05/29) She has completed a 5 day course of remdesivir, will repeat another 5 day course of remdesivir (initiated on 06/08/2021) She has completed a course of baricitinib (started 05/31). (3) Elevated LFTs: Code(s): R79.89 - Other specified abnormal findings of blood chemistry Status: Acute Assessment and Plan: Most likely secondary to COVID-19 +/- rhabdomyolysis. AST and ALT have trended down since admission. Viral hepatitis panel was negative Right upper quadrant ultrasound showed hepatic steatosis (4) Hypothyroidism: Code(s): E03.9 - Hypothyroidism, unspecified Status: Acute Assessment and Plan: Continue levothyroxine and TSH was normal (5) Mottled skin: Code(s): L81.9 - Disorder of pigmentation, unspecified Status: Acute Assessment and Plan: Plantar surface of both feet appears mottled. Bilateral dorsalis pedis are palpable though weak Arterial and venous Dopplers were reviewed Blood pressure adequate. Maintain map Normal CK (6) Electrolyte abnormality: Code(s): E87.8 - Other disorders of electrolyte and fluid balance, not elsewhere classified Status: Acute Assessment and Plan: Replace low potassium Additional Plan DVT prophylaxis -Lovenox subQ Stress ulcer prophylaxis -at [facility] Nutrition -PEG placed, continue Tube Feeds. Continue Reglan, continue MiraLax, and p.r.n. Dulcolax suppository Trach was scheduled but has been postponed at this time due to increased oxygen requirement and need for daily prone ventilation Code Status - Full Code I spoke to patient's by phone today and updated him with patient's current status, current treatment plan and answered his questions Total Critical Care Time - 31 minutes Due to a high probability of clinically significant, life threatening deterioration, the patient required my highest level of preparedness to intervene emergently and I personally spent this critical care time directly and personally managing the patient. This critical care time included obtaining a history; examining the patient; pulse oximetry; ordering and review of studies; arranging urgent treatment with development of a management plan; evaluation of patient's response to treatment; frequent reassessment; and discussions with other providers. It was exclusive of separately billable procedures and t
--- NOTE | 2021-06-18 11:15 | PCDIET ---
Nutrition Follow-Up Complete: Nutrition Diagnosis: Inadequate oral intake related to intubation as evidenced by NPO. Nutrition Goal: Meet estimated nutritional needs Goal met. Patient tolerating Vital 1.2 at 50mL/hr with residuals 125mL and below. Water flush of 30mL every 4 hours continues. Last recorded weight is 103.7 kg which is increased from last review. Bowel Motility: Last documented BM on 06/15/21 x 1. Labs Reviewed: Hgb (10.7), RBC (2.78), Hgb (8.2), Hct (25.8), BUN (19), Cr (0.4), K (3.1), Alb (2.9) Meds Noted: Fentanyl, Synthroid, Reglan, Versed, Protonix, KCl, Propofol (rate of 13.08mL/hr provides 345kcal per day) Additional Notes: Medial neck with friction area. Will continue to monitor with same goal. Nutrition Monitoring and Evaluation: Follow up every Monday/Monday.
[2021-06-18] MEDS: POTASSIUM CHLORIDE 20 MEQ PACKET (FOR LIQUID) 40 MEQ FEED TUBE (11:20)
[2021-06-18] MEDS: FUROSEMIDE INJ 40 MG/4 ML VIAL IV PUSH (12:21)
[2021-06-18 12:40] LABS: Glucose Point of Care 72 mg/dl (65-105)
[2021-06-18] MEDS: PROPOFOL IV EMULSION 100 ML 22.89 MG IV CONT (16:58)
[2021-06-18] MEDS: NOREPINEPHRINE 8 MG/D5W 250 ML 8 MG/250 ML BAG 9.38 MG IV CONT (18:04)
[2021-06-18] MEDS: PROPOFOL IV EMULSION 100 ML 26.16 MG IV CONT (20:18)
[2021-06-18] MEDS: FENTANYL 2,500MCG/NS250ML(*CRX 2,500 MCG/250 ML BAG 20 MCG IV CONT (20:19)
[2021-06-18] MEDS: ACETAMINOPHEN ELIXIR 325 MG/10.15 ML UDC 650 MG PO (20:28)
[2021-06-18] MEDS: PROPOFOL IV EMULSION 100 ML 29.43 MG IV CONT (23:54)
[2021-06-19] VITALS (37 sets, daily range): BP systolic 82–103; BP diastolic 9–77; PULSE 77–90; RESP 17–97; TEMP 35.9–37.4; O2SAT 92–96
[2021-06-19 00:18] LABS: Glucose Point of Care 136 mg/dl (65-105)
[2021-06-19 00:18] LABS: Glucose Point of Care 78 mg/dl (65-105)
[2021-06-19 00:28] LABS: Add Urine Microscopic? YES; Appearance Urine Cloudy (Clear); Bacteria Urine Trace /hpf; Bilirubin Urine 1+ (Negative); Blood Urine 2+ (Negative); Color Urine Amber (Yellow); Glucose Urine UA Negative (Negative); Ketones Urine Negative (Negative); Leukocyte Esterase Ur 1+ LEU/UL (NEGATIVE); Mucus Urine Rare /lpf; Nitrate Urine Negative (Negative); Protein Urine 1+ mg/dL (Negative); RBC Urine >75 /hpf (0-2); Specific Grav Ur 1.023 (1.001-1.035); Squamous Epithelial Cell Urine Occasional /hpf (Few); WBC Urine 31-50 /hpf (0-3)
[2021-06-19] MEDS: PROPOFOL IV EMULSION 100 ML 26.16 MG IV CONT (03:51)
[2021-06-19 04:50] LABS: Base Excess ABG 10.6 mEq/l (+/-2.0); Carboxyhemoglobin 0.3 % THb (0-2.0); Fractional Inspired Oxygen 100 %; Methemoglobin ABG 0.4 %THb (0-1.5); Oxygen Content ABG 17.1 %vol (16.0-22.0); Oxyhemoglobin 97.7 % THb (90.0-100.0); PO2 ABG 160.4 mmHg (80.0-100.0); Reduced Hemoglobin 1.6 %THb (0-5.0); Total Hemoglobin 12.2 g/dL (12.0-18.0); pH ABG 7.387 (7.350-7.450)
[2021-06-19 04:53] LABS: Device VENTILATOR; PCO2 ABG 64.6 mmHg (35.0-45.0); Site Drawn LEFT BRACHIAL
[2021-06-19 04:54] LABS: Arterial Blood Gas PEEP 14 cmH2O; Arterial Blood Gas Tidal Volume 330 ml; Arterial Blood Gas Vent Mode CMV; Arterial Blood Gas Ventilator rate 20 /MIN
[2021-06-19] MEDS: METOCLOPRAMIDE HCL 10 MG/10 ML SOLN UDC FEED TUBE ×3 (05:17→23:44)
[2021-06-19] MEDS: LEVOTHYROXINE SODIUM INJ 100 MCG/5 ML VIAL 12.5 MCG IV PUSH (05:19)
[2021-06-19] MEDS: CENTRAL LINE FLUSH 10 ML IV PUSH ×2 (05:20→20:05)
[2021-06-19 05:28] LABS: Hematocrit 27.2 % (37.0-47.0); Hemoglobin 8.5 g/dL (12.0-15.0); Mean Corpuscular HGB Conc 31.3 g/dl (32-36); Mean Corpuscular Hemoglobin 29.8 pg (26-34); Mean Corpuscular Volume 95.4 fl (80-100); Mean Platelet Volume 10.4 fl (7.4-10.4); Platelet Count Result 170 k/mm3 (150-375); Red Blood Count 2.85 M/mm3 (4.2-5.4); Red Cell Distribution Width 13.7 % (11.5-14.5); White Blood Count 11.3 K/mm3 (4.5-10.0)
[2021-06-19 05:47] LABS: Alanine Aminotransferase 54 U/L (4-35); Albumin Level 2.4 g/dL (3.5-5.1); Alkaline Phosphatase 54 U/L (38-126); Anion Gap 3 mmol/L (8-16); Aspartate Amino Transferase 60 U/L (14-36); Bilirubin,Total 1.3 mg/dL (0.2-1.3); Blood Urea Nitrogen 17 mg/dL (7-17); Calcium 6.8 mg/dL (8.4-10.2); Carbon Dioxide 29 mmol/L (22-30); Chloride 96 mmol/L (98-107); Estimated CRCL calculation 128 ml/min; Estimated Glomerular Filt Rate > 60; Glucose 326 mg/dL (65-110); Magnesium 1.9 mg/dL (1.6-2.3); Potassium 3.2 mmol/L (3.4-5.0); Sodium 128 mmol/L (137-145)
[2021-06-19 06:50] LABS: Glucose Point of Care 124 mg/dl (65-105)
[2021-06-19] MEDS: PROPOFOL IV EMULSION 100 ML 22.89 MG IV CONT ×4 (07:09→20:53)
[2021-06-19] MEDS: MINERAL OIL/WHITE PETROLATUM OINTMENT 1 APPLIC EACH EYE ×2 (09:04→20:04)
[2021-06-19] MEDS: PANTOPRAZOLE SODIUM IV 40 MG VIAL IV PUSH (09:04)
[2021-06-19] MEDS: ENOXAPARIN 40 MG/0.4 ML SYRINGE SUB-Q (09:05)
[2021-06-19] MEDS: FENTANYL 2,500MCG/NS250ML(*CRX 2,500 MCG/250 ML BAG 20 MCG IV CONT ×2 (11:06→23:42)
--- NOTE | 2021-06-19 11:15 | WPDINTPN ---
Progress Note: A&P Assessment and Plan (1) Acute respiratory failure with hypoxia: Code(s): J96.01 - Acute respiratory failure with hypoxia Status: Acute Assessment and Plan: Secondary to extensive COVID pneumonia. Chest CTA on 05/29/2021 at outside facility was negative for pulmonary embolism. Currently sedated with propofol. Triglyceride level was normal Intubated on 06/01/2021 at outside facility. Currently on peep of 14 and 80% FiO2 in prone position. Patient does not tolerate supine position well and her oxygen requirement quickly goes up every time she has turned supine.. Continue daily prone ventilation for 18 hours as tolerated Patient was scheduled for tracheostomy but tracheostomy had to be canceled due to increased oxygen requirement and need for prone ventilation ABG reviewed Chest x-ray reviewed 06/15 CTA IMPRESSION: 1. Diffuse COVID pneumonia, more confluence posteriorly. 2. Cardiomegaly. 3. No pulmonary emboli. Continue propofol , fentanyl and Versed infusion Hold Lasix at this time since patient is on Levophed (2) Pneumonia due to COVID-19 virus: Code(s): U07.1 - COVID-19; J12.82 - Pneumonia due to coronavirus disease 2019 Status: Acute Assessment and Plan: Patient has reportedly had COVID like symptoms for 3 weeks and she tested positive on 05/29/2021. She has completed a 5 day course of azithromycin . Her procalcitonin was normal Status post Dexamethasone (started 05/29) She has completed a 5 day course of remdesivir, will repeat another 5 day course of remdesivir (initiated on 06/08/2021) She has completed a course of baricitinib (started 05/31). (3) Fever: Code(s): R50.9 - Fever, unspecified Status: Acute Assessment and Plan: Patient was febrile overnight. White count is slightly elevated Chest x-ray does not show any significant change, no significant change in respiratory secretions Blood culture sent and are pending Sputum cultures or UA suggest UTI Change Milligan catheter Check urine culture IV cefepime (4) Elevated LFTs: Code(s): R79.89 - Other specified abnormal findings of blood chemistry Status: Acute Assessment and Plan: Most likely secondary to COVID-19 +/- rhabdomyolysis. AST and ALT have trended down since admission. Viral hepatitis panel was negative Right upper quadrant ultrasound showed hepatic steatosis (5) Hypothyroidism: Code(s): E03.9 - Hypothyroidism, unspecified Status: Acute Assessment and Plan: Continue levothyroxine and TSH was normal (6) Mottled skin: Code(s): L81.9 - Disorder of pigmentation, unspecified Status: Acute Assessment and Plan: Plantar surface of both feet appears mottled. Bilateral dorsalis pedis are palpable though weak Arterial and venous Dopplers were reviewed Blood pressure adequate. Maintain map Normal CK (7) Electrolyte abnormality: Code(s): E87.8 - Other disorders of electrolyte and fluid balance, not elsewhere classified Status: Acute Assessment and Plan: Replace low potassium Her corrected sodium is slightly lower than yesterday likely secondary to diuretics Hold Lasix at this time Repeat BMP later today Replace low calcium Additional Plan DVT prophylaxis -Lovenox subQ Stress ulcer prophylaxis -at [facility] Nutrition -PEG placed, continue Tube Feeds. Continue Reglan, continue MiraLax, and p.r.n. Dulcolax suppository Trach was scheduled but has been postponed at this time due to increased oxygen requirement and need for daily prone ventilation Code Status - DNR 06/18 I discussed code status with patient's who had spoken to chaplain Segovia earlier in the day. Patient requested the patient be made DNR as he does not feel theat patient would want CPR or resuscitation in the event of cardiac arrest considering severe respiratory failure with no improvement for weeks and guarded prognosis. Code status in
[2021-06-19] MEDS: POTASSIUM CHLORIDE 20 MEQ PACKET (FOR LIQUID) 40 MEQ FEED TUBE (11:57)
[2021-06-19] MEDS: CALCIUM GLUC 2,000 MG/NS 100ML 2,000 MG/100 ML BAG 100 MG IVPB (11:58)
[2021-06-19 12:51] LABS: Glucose Point of Care 126 mg/dl (65-105)
[2021-06-19] MEDS: MIDAZOLAM 100MG/NS 100ML(*CRX) 100 MG/100 ML BAG 6 MG IV CONT (15:10)
--- NOTE | 2021-06-19 15:48 | PM.IMPN ---
Progress Note: A&P Assessment and Plan (1) Acute respiratory failure with hypoxia: Code(s): J96.01 - Acute respiratory failure with hypoxia Status: Acute Assessment and Plan: Continue mechanical ventilation with low tidal volume strategies as per ARDS protocol per Secondary to extensive COVID pneumonia. Chest CTA on 05/29/2021 at outside facility was negative for pulmonary embolism. Currently sedated with propofol, fentanyl and Versed. daily sedation vacation trial not feasible at this time. Intubated on 06/01/2021 at outside facility. Currently on peep of 14 and 100% FiO2 in prone position. Patient does not tolerate supine position well and her oxygen requirement quickly goes up every time she has turned supine.. Continue daily prone ventilation for 18 hours as tolerated. Patient was scheduled for tracheostomy but tracheostomy had to be canceled due to increased oxygen requirement and need for prone ventilation Continue to monitor chest x-ray and ABG. CT of the chest done on 06/15 was negative for PE. It did show bilateral diffuse infiltrate likely secondary to COVID-19 pneumonia. Currently requiring Levophed. Wean Levophed if tolerated. (2) Pneumonia due to COVID-19 virus: Code(s): U07.1 - COVID-19; J12.82 - Pneumonia due to coronavirus disease 2019 Status: Acute Assessment and Plan: Patient has reportedly had COVID like symptoms for 3 weeks and she tested positive on 05/29/2021. She has completed a 5 day course of azithromycin . Her procalcitonin was normal Status post Dexamethasone (started 05/29) She has completed a 5 day course of remdesivir. She has completed a course of baricitinib (started 05/31). (3) Fever: Code(s): R50.9 - Fever, unspecified Status: Acute Assessment and Plan: Patient was febrile overnight. White count is slightly elevated. Chest x-ray does not show any significant change, no significant change in respiratory secretions Continue to trend WBC count and follow fever curve. Follow cultures. Continue IV cefepime empirically for now. (4) Elevated LFTs: Code(s): R79.89 - Other specified abnormal findings of blood chemistry Status: Acute Assessment and Plan: Most likely secondary to COVID-19 +/- rhabdomyolysis. AST and ALT have trended down since admission. Viral hepatitis panel was negative Right upper quadrant ultrasound showed hepatic steatosis (5) Hypothyroidism: Code(s): E03.9 - Hypothyroidism, unspecified Status: Acute Assessment and Plan: Continue levothyroxine and TSH was normal (6) Mottled skin: Code(s): L81.9 - Disorder of pigmentation, unspecified Status: Acute Assessment and Plan: Plantar surface of both feet appears mottled. Bilateral dorsalis pedis are palpable though weak Arterial and venous Dopplers were reviewed Blood pressure adequate. Maintain map Normal CK (7) Electrolyte abnormality: Code(s): E87.8 - Other disorders of electrolyte and fluid balance, not elsewhere classified Status: Acute Assessment and Plan: Continue to monitor electrolytes and replace if low. Additional Plan DVT prophylaxis -Lovenox subQ Stress ulcer prophylaxis -at [facility] Nutrition -PEG placed, continue Tube Feeds. Continue Reglan, continue MiraLax, and p.r.n. Dulcolax suppository Trach was scheduled but has been postponed at this time due to increased oxygen requirement and need for daily prone ventilation Code Status - DNR 06/18 ICU team discussed code status with patient's who had spoken to cullet crusher and washer Jim earlier in the day. Patient requested the patient be made DNR as he does not feel thet patient would want CPR or resuscitation in the event of cardiac arrest considering severe respiratory failure with no improvement for weeks and guarded prognosis. Code status in the chart changed to DNR as per patient's request
[2021-06-19] MEDS: NOREPINEPHRINE 8 MG/D5W 250 ML 8 MG/250 ML BAG 7.5 MG IV CONT (17:54)
[2021-06-19 18:06] LABS: Anion Gap 0 mmol/L (8-16); Blood Urea Nitrogen 21 mg/dL (7-17); Calcium 9.2 mg/dL (8.4-10.2); Carbon Dioxide 39 mmol/L (22-30); Chloride 98 mmol/L (98-107); Estimated CRCL calculation 105 ml/min; Estimated Glomerular Filt Rate > 60; Glucose 120 mg/dL (65-110); Potassium 5.6 mmol/L (3.4-5.0); Sodium 137 mmol/L (137-145)
[2021-06-19 18:06] LABS: Glucose Point of Care 120 mg/dl (65-105)
[2021-06-20] VITALS (41 sets, daily range): BP systolic 75–111; BP diastolic 48–78; PULSE 80–108; RESP 18–23; TEMP 36.4–38.2; O2SAT 92–97
[2021-06-20] MEDS: PROPOFOL IV EMULSION 100 ML 22.89 MG IV CONT ×3 (00:21→09:29)
[2021-06-20 03:45] LABS: Glucose Point of Care 117 mg/dl (65-105)
[2021-06-20 04:32] LABS: Alveolar/Arterial O2 Gradient 333.8 mmHg; Base Excess ABG 4.5 mEq/l (+/-2.0); Carboxyhemoglobin 0.3 % THb (0-2.0); Fractional Inspired Oxygen 80 %; HCO3 ABG 30.4 mEq/l (22.0-26.0); Methemoglobin ABG 0.1 %THb (0-1.5); Oxygen Content ABG 17.5 %vol (16.0-22.0); Oxygen Saturation ABG 99.2 % (95.0-100.0); Oxyhemoglobin 98.3 % THb (90.0-100.0); PCO2 ABG 50.9 mmHg (35.0-45.0); PO2 ABG 183.2 mmHg (80.0-100.0); PO2 FiO2 Ratio Arterial Blood 2.29 %; Reduced Hemoglobin 1.3 %THb (0-5.0); Total Hemoglobin 12.4 g/dL (12.0-18.0); pH ABG 7.394 (7.350-7.450)
[2021-06-20 04:33] LABS: Arterial Blood Gas PEEP 14 cmH2O; Arterial Blood Gas Tidal Volume 330 ml; Arterial Blood Gas Vent Mode CMV; Arterial Blood Gas Ventilator rate 20 /MIN; Device VENTILATOR; Modified Allen's Test Pass; Site Drawn LEFT RADIAL
[2021-06-20] MEDS: LEVOTHYROXINE SODIUM INJ 100 MCG/5 ML VIAL 12.5 MCG IV PUSH (04:58)
[2021-06-20] MEDS: METOCLOPRAMIDE HCL 10 MG/10 ML SOLN UDC FEED TUBE ×2 (04:58→17:53)
[2021-06-20] MEDS: CENTRAL LINE FLUSH 10 ML IV PUSH ×2 (04:59→20:29)
[2021-06-20 05:58] LABS: Alanine Aminotransferase 178 U/L (4-35); Albumin Level 2.7 g/dL (3.5-5.1); Alkaline Phosphatase 67 U/L (38-126); Anion Gap 2 mmol/L (8-16); Aspartate Amino Transferase 193 U/L (14-36); Blood Urea Nitrogen 22 mg/dL (7-17); Calcium 8.4 mg/dL (8.4-10.2); Carbon Dioxide 34 mmol/L (22-30); Chloride 98 mmol/L (98-107); Estimated CRCL calculation 130 ml/min; Estimated Glomerular Filt Rate > 60; Glucose 120 mg/dL (65-110); Magnesium 2.2 mg/dL (1.6-2.3); Potassium 5.1 mmol/L (3.4-5.0); Sodium 134 mmol/L (137-145)
[2021-06-20 06:01] LABS: Hematocrit 27.1 % (37.0-47.0); Hemoglobin 8.4 g/dL (12.0-15.0); Mean Corpuscular Hemoglobin 30.2 pg (26-34); Mean Corpuscular Volume 97.5 fl (80-100); Mean Platelet Volume 10.8 fl (7.4-10.4); Platelet Count Result 188 k/mm3 (150-375); Red Blood Count 2.78 M/mm3 (4.2-5.4); Red Cell Distribution Width 13.7 % (11.5-14.5); White Blood Count 9.8 K/mm3 (4.5-10.0)
[2021-06-20] MEDS: MIDAZOLAM 100MG/NS 100ML(*CRX) 100 MG/100 ML BAG 6 MG IV CONT (06:35)
--- NOTE | 2021-06-20 09:23 | WPDINTPN ---
Progress Note: A&P Assessment and Plan (1) Acute respiratory failure with hypoxia: Code(s): J96.01 - Acute respiratory failure with hypoxia Status: Acute Assessment and Plan: Secondary to extensive COVID pneumonia. Chest CTA on 05/29/2021 at outside facility was negative for pulmonary embolism. Currently sedated with propofol. Triglyceride level was normal Intubated on 06/01/2021 at outside facility. Currently on peep of 14 and 80% FiO2 in prone position. Patient does not tolerate supine position well and her oxygen requirement quickly goes up every time she has turned supine.. Continue daily prone ventilation for 18 hours as tolerated Patient was scheduled for tracheostomy but tracheostomy had to be canceled due to increased oxygen requirement and need for prone ventilation ABG reviewed Chest x-ray is pending for today 06/15 CTA IMPRESSION: 1. Diffuse COVID pneumonia, more confluence posteriorly. 2. Cardiomegaly. 3. No pulmonary emboli. Continue propofol , fentanyl and Versed infusion (2) Pneumonia due to COVID-19 virus: Code(s): U07.1 - COVID-19; J12.82 - Pneumonia due to coronavirus disease 2019 Status: Acute Assessment and Plan: Patient has reportedly had COVID like symptoms for 3 weeks and she tested positive on 05/29/2021. She has completed a 5 day course of azithromycin . Her procalcitonin was normal Status post Dexamethasone (started 05/29) She has completed a 5 day course of remdesivir, will repeat another 5 day course of remdesivir (initiated on 06/08/2021) She has completed a course of baricitinib (started 05/31). (3) Fever: Code(s): R50.9 - Fever, unspecified Status: Acute Assessment and Plan: WBC has improved and patient has been afebrile overnight Chest x-ray does not show any significant change, no significant change in respiratory secretions Blood culture sent and are pending Sputum cultures pending UA suggest UTI Changed Milligan catheter Check urine culture pending Continue IV cefepime (4) Elevated LFTs: Code(s): R79.89 - Other specified abnormal findings of blood chemistry Status: Acute Assessment and Plan: Most likely secondary to COVID-19 +/- rhabdomyolysis. AST and ALT have trended down since admission. Viral hepatitis panel was negative Right upper quadrant ultrasound showed hepatic steatosis (5) Hypothyroidism: Code(s): E03.9 - Hypothyroidism, unspecified Status: Acute Assessment and Plan: Continue levothyroxine and TSH was normal (6) Mottled skin: Code(s): L81.9 - Disorder of pigmentation, unspecified Status: Acute Assessment and Plan: Plantar surface of both feet appears mottled. Bilateral dorsalis pedis are palpable though weak Arterial and venous Dopplers were reviewed Blood pressure adequate. Maintain map Normal CK (7) Electrolyte abnormality: Code(s): E87.8 - Other disorders of electrolyte and fluid balance, not elsewhere classified Status: Acute Assessment and Plan: K is 5.1 Patient has been receiving potassium replacement for low potassium for last few days Will monitor for now Additional Plan DVT prophylaxis -Lovenox subQ Stress ulcer prophylaxis -at PPI Nutrition -PEG placed, continue Tube Feeds. Continue Reglan, continue MiraLax, and p.r.n. Dulcolax suppository Trach was scheduled but has been postponed at this time due to increased oxygen requirement and need for daily prone ventilation Code Status - DNR 06/18 I discussed code status with patient's who had spoken to chaplain Segovia earlier in the day. Patient requested the patient be made DNR as he does not feel theat patient would want CPR or resuscitation in the event of cardiac arrest considering severe respiratory failure with no improvement for weeks and guarded prognosis. Code status in the chart changed to DNR as per patient's request Total Critical Care T
[2021-06-20] MEDS: ENOXAPARIN 40 MG/0.4 ML SYRINGE SUB-Q (09:31)
[2021-06-20] MEDS: MINERAL OIL/WHITE PETROLATUM OINTMENT 1 APPLIC EACH EYE ×2 (09:31→20:24)
[2021-06-20] MEDS: PANTOPRAZOLE SODIUM IV 40 MG VIAL IV PUSH (09:32)
[2021-06-20 12:02] LABS: Glucose Point of Care 126 mg/dl (65-105)
[2021-06-20] MEDS: FENTANYL 2,500MCG/NS250ML(*CRX 2,500 MCG/250 ML BAG 20 MCG IV CONT (12:34)
[2021-06-20] MEDS: PROPOFOL IV EMULSION 100 ML 19.62 MG IV CONT (14:01)
--- NOTE | 2021-06-20 14:31 | PM.IMPN ---
Progress Note: A&P Assessment and Plan (1) Acute respiratory failure with hypoxia: Code(s): J96.01 - Acute respiratory failure with hypoxia Status: Acute Assessment and Plan: Continue mechanical ventilation with low tidal volume strategies as per ARDS protocol per Secondary to extensive COVID pneumonia. Chest CTA on 05/29/2021 at outside facility was negative for pulmonary embolism. Currently sedated with propofol, fentanyl and Versed. daily sedation vacation trial not feasible at this time. Intubated on 06/01/2021 at outside facility. Currently on peep of 14 and 100% FiO2 in prone position. Patient does not tolerate supine position well and her oxygen requirement quickly goes up every time she has turned supine.. Continue daily prone ventilation for 18 hours as tolerated. Patient was scheduled for tracheostomy but tracheostomy had to be canceled due to increased oxygen requirement and need for prone ventilation Continue to monitor chest x-ray and ABG. CT of the chest done on 06/15 was negative for PE. It did show bilateral diffuse infiltrate likely secondary to COVID-19 pneumonia. She has been weaned off from Levophed. Continue to monitor hemodynamics closely. (2) Pneumonia due to COVID-19 virus: Code(s): U07.1 - COVID-19; J12.82 - Pneumonia due to coronavirus disease 2019 Status: Acute Assessment and Plan: Patient has reportedly had COVID like symptoms for 3 weeks and she tested positive on 05/29/2021. She has completed a 5 day course of azithromycin . Her procalcitonin was normal Status post Dexamethasone (started 05/29) She has completed a 5 day course of remdesivir. She has completed a course of baricitinib (started 05/31). (3) Fever: Code(s): R50.9 - Fever, unspecified Status: Acute Assessment and Plan: Upc count improved. She was afebrile overnight. Milligan's catheter has been changed. Chest x-ray does not show any significant change, no significant change in respiratory secretions Continue to trend WBC count and follow fever curve. Follow cultures. Continue IV cefepime empirically for now. (4) Elevated LFTs: Code(s): R79.89 - Other specified abnormal findings of blood chemistry Status: Acute Assessment and Plan: Most likely secondary to COVID-19 +/- rhabdomyolysis. AST and ALT have trended down since admission. Viral hepatitis panel was negative Right upper quadrant ultrasound showed hepatic steatosis (5) Hypothyroidism: Code(s): E03.9 - Hypothyroidism, unspecified Status: Acute Assessment and Plan: Continue levothyroxine and TSH was normal (6) Mottled skin: Code(s): L81.9 - Disorder of pigmentation, unspecified Status: Acute Assessment and Plan: Plantar surface of both feet appears mottled. Bilateral dorsalis pedis are palpable though weak Arterial and venous Dopplers were reviewed Blood pressure adequate. Maintain map CPK is normal. (7) Electrolyte abnormality: Code(s): E87.8 - Other disorders of electrolyte and fluid balance, not elsewhere classified Status: Acute Assessment and Plan: Continue to monitor electrolytes and replace if low. Additional Plan DVT prophylaxis -Lovenox subQ Stress ulcer prophylaxis -at PPI Nutrition -PEG placed, continue Tube Feeds. Continue Reglan, continue MiraLax, and p.r.n. Dulcolax suppository Trach was scheduled but has been postponed at this time due to increased oxygen requirement and need for daily prone ventilation. Code Status - DNR 06/18 ICU team discussed code status with patient's who had spoken to licensed funeral director and embalmer Luca earlier in the day. Patient requested the patient be made DNR as he does not feel thet patient would want CPR or resuscitation in the event of cardiac arrest considering severe respiratory failure with no improvement for weeks and guarded prognosis. Code status in the c
[2021-06-20 18:00] LABS: Glucose Point of Care 128 mg/dl (65-105)
[2021-06-20] MEDS: PROPOFOL IV EMULSION 100 ML 13.08 MG IV CONT (20:20)
[2021-06-20] MEDS: SODIUM CHLORIDE 0.9% IV 1,000 ML 999 ML IV CONT (20:33)
[2021-06-20] MEDS: ACETAMINOPHEN ELIXIR 325 MG/10.15 ML UDC 650 MG PO (20:34)
[2021-06-20] MEDS: NOREPINEPHRINE 8 MG/D5W 250 ML 8 MG/250 ML BAG 41.25 MG IV CONT (22:01)
[2021-06-21] VITALS (46 sets, daily range): BP systolic 80–150; BP diastolic 50–102; PULSE 93–125; RESP 17–34; TEMP 35.8–37.1; O2SAT 84–100
[2021-06-21] MEDS: MIDAZOLAM 100MG/NS 100ML(*CRX) 100 MG/100 ML BAG 6 MG IV CONT (01:00)
[2021-06-21] MEDS: METOCLOPRAMIDE HCL 10 MG/10 ML SOLN UDC FEED TUBE ×5 (01:06→23:03)
[2021-06-21] MEDS: FENTANYL 2,500MCG/NS250ML(*CRX 2,500 MCG/250 ML BAG 20 MCG IV CONT ×2 (01:56→13:49)
[2021-06-21] MEDS: PROPOFOL IV EMULSION 100 ML 9.81 MG IV CONT (02:26)
[2021-06-21 03:51] LABS: Glucose Point of Care 154 mg/dl (65-105)
[2021-06-21] MEDS: LEVOTHYROXINE SODIUM INJ 100 MCG/5 ML VIAL 12.5 MCG IV PUSH (05:34)
[2021-06-21] MEDS: CENTRAL LINE FLUSH 10 ML IV PUSH ×4 (05:35→20:48)
[2021-06-21 06:25] LABS: Hemoglobin 9.5 g/dL (12.0-15.0); Mean Corpuscular HGB Conc 30.6 g/dl (32-36); Mean Corpuscular Hemoglobin 29.8 pg (26-34); Mean Corpuscular Volume 97.2 fl (80-100); Mean Platelet Volume 10.9 fl (7.4-10.4); Platelet Count Result 227 k/mm3 (150-375); Red Blood Count 3.19 M/mm3 (4.2-5.4); Red Cell Distribution Width 14.1 % (11.5-14.5); White Blood Count 13.3 K/mm3 (4.5-10.0)
[2021-06-21 06:37] LABS: Magnesium 2.5 mg/dL (1.6-2.3)
[2021-06-21 06:38] LABS: Anion Gap 3 mmol/L (8-16); Blood Urea Nitrogen 45 mg/dL (7-17); Calcium 8.6 mg/dL (8.4-10.2); Carbon Dioxide 34 mmol/L (22-30); Chloride 98 mmol/L (98-107); Estimated CRCL calculation 41 ml/min; Estimated Glomerular Filt Rate 37; Glucose 133 mg/dL (65-110); Potassium 6.1 mmol/L (3.4-5.0); Sodium 135 mmol/L (137-145)
[2021-06-21 06:54] LABS: Band Neutrophils Percent 4 % (0-6); Lymphocytes Absolute Manual 3.19 K/mm3 (1.1-4.5); Monocytes Absolute Manual 0.26 K/mm3 (0.1-0.90); Monocytes Percent Manual 2 % (3-9); Neutrophils Absolute Manual 9.84 K/mm3 (1.7-7.2); Neutrophils Percent Manual 70 % (46-73); Platelet Estimate Adequate (Adequate); Total Cells Counted 100
[2021-06-21] MEDS: SODIUM POLYSTYRENE SULFONONATE 15 GM/60 ML BTL 30 GM PO ×2 (08:01→18:12)
[2021-06-21] MEDS: DEXTROSE 50% 25 GM/50 ML SYRINGE IV PUSH (08:01)
[2021-06-21] MEDS: INSULIN HUMAN REGULAR (*BKC) 100 UNITS/ML 10 UNITS IV PUSH (08:02)
[2021-06-21] MEDS: CALCIUM GLUC 1,000 MG/NS 50 ML 1,000 MG/50 ML BAG 100 MG IVPB (08:02)
[2021-06-21] MEDS: SODIUM CHLORIDE 0.9% IV 500 ML IV CONT (08:02)
[2021-06-21] MEDS: MINERAL OIL/WHITE PETROLATUM OINTMENT 1 APPLIC EACH EYE ×2 (08:04→20:47)
[2021-06-21] MEDS: ENOXAPARIN 40 MG/0.4 ML SYRINGE SUB-Q (08:04)
[2021-06-21] MEDS: PANTOPRAZOLE SODIUM IV 40 MG VIAL IV PUSH (08:04)
[2021-06-21 08:15] LABS: Alveolar/Arterial O2 Gradient 352.4 mmHg; Base Excess ABG 1.9 mEq/l (+/-2.0); Carboxyhemoglobin 0.3 % THb (0-2.0); Device VENTILATOR; Fractional Inspired Oxygen 70 %; HCO3 ABG 28.5 mEq/l (22.0-26.0); Methemoglobin ABG 0.4 %THb (0-1.5); Modified Allen's Test Pass; Oxygen Content ABG 14.1 %vol (16.0-22.0); Oxygen Saturation ABG 95.9 % (95.0-100.0); Oxyhemoglobin 94.4 % THb (90.0-100.0); PCO2 ABG 55.1 mmHg (35.0-45.0); PO2 ABG 87.5 mmHg (80.0-100.0); PO2 FiO2 Ratio Arterial Blood 1.25 %; Reduced Hemoglobin 4.9 %THb (0-5.0); Site Drawn LEFT RADIAL; Total Hemoglobin 10.5 g/dL (12.0-18.0); pH ABG 7.332 (7.350-7.450)
[2021-06-21 08:16] LABS: Arterial Blood Gas PEEP 14 cmH2O; Arterial Blood Gas Tidal Volume 330 ml; Arterial Blood Gas Vent Mode CMV; Arterial Blood Gas Ventilator rate 20 /MIN
[2021-06-21] MEDS: NOREPINEPHRINE 8 MG/D5W 250 ML 8 MG/250 ML BAG 11.25 MG IV CONT (08:33)
[2021-06-21] MEDS: SODIUM CHLORIDE 0.9% IV 1,000 ML 100 ML IV CONT (09:00)
--- NOTE | 2021-06-21 10:17 | PM.IMPN ---
Progress Note: A&P Additional Plan START OF DOCTOR LYNETTE?S PROGRESS NOTE Subjective: The patient is sedated and intubated Objective: General: -sedated -No acute distress -No dyspnea -No tachypnea Heart: -iRegular rate -Regular rhythm -No murmurs -No gallops -No rubs Lungs: -No wheeze -No rhonchi -No rales Abdomen: -Normal bowel sounds in all four quadrants -No rebound -No guarding -No tenderness Extremities: -2/4 pulse in all four extremities -No clubbing -No cyanosis -No edema Additional Details / Additional Findings / Exceptions / Miscellaneous: Pertinent Laboratory Results / Pertinent Radiology Results / Pertinent Diagnostic Results / Pertinent Vital Signs: Heart rate 113 beats per minute, blood pressure 95/70, white blood count 13.3, hemoglobin 9.5, potassium 6.1, creatinine 1.4 Assessment / Plan: COVID-19 pneumonia with subsequent respiratory failure. Tracheostomy placement pending. Ventilator management as per ship construction teacher. Turn q.2 hours Current ventilator settings as of 10:20 a.m. on June 21, 2020: CMV, rate 25, tidal volume 330, peep 14, FiO2 70% Hypotension. IV p.r.n. Levophed per protocol plus IV p.r.n. vasopressin per protocol Nutrition, status post EGD with PEG tube placement June 15, 2021 with Gastroenterology Urinary tract infection. Cefepime 1 g IV q.12 hours Hypertension Hypothyroidism. Synthroid 12.5 mg IV daily History of versus current breast cancer, history of bilateral breast lumpectomy. Outpatient follow-up with Hematology/Oncology upon discharge Anxiety Depression Anemia. Will monitor hemoglobin level intermittently. Check serum ferritin, iron panel, fecal occult blood Hyperkalemia. Monitor potassium levels intermittently and correct as necessary. Telemetry monitoring Acute renal insufficiency. Will monitor creatinine intermittently Hepatic steatosis Obesity. Patient counseled regarding lifestyle modification GI prophylaxis. Protonix 40 mg IV daily DVT prophylaxis. Lovenox 40 mg subcutaneously daily Disposition: END OF DOCTOR LYNETTE?S PROGRESS NOTE Subjective Date/time seen: 06/21/21 10:17 Objective Data Vital Signs Vital Signs: Vital Signs - 24 hr 06/20/21 11:01 06/20/21 12:00 06/20/21 12:12 Temperature 97.6 F Pulse Rate 102 H 102 H 102 H Respiratory Rate 20 20 Blood Pressure 88/72 L Pulse Oximetry 95 95 06/20/21 12:33 06/20/21 12:34 06/20/21 13:25 Temperature Pulse Rate 102 H 102 H 102 H Respiratory Rate 20 Blood Pressure 99/53 L Pulse Oximetry 93 06/20/21 13:52 06/20/21 14:00 06/20/21 14:01 Temperature Pulse Rate 102 H 99 102 H Respiratory Rate 20 20 20 Blood Pressure 96/61 L Pulse Oximetry 93 06/20/21 16:00 06/20/21 16:43 06/20/21 18:00 Temperature 98.4 F Pulse Rate 103 H 103 H 108 H Respiratory Rate 19 20 Blood Pressure 88/59 L 89/66 L Pulse Oximetry 94 94 94 06/20/21 19:07 06/20/21 19:30 06/20/21 19:40 Temperature Pulse Rate 98 108 H 108 H Respiratory Rate 20 Blood Pressure 75/65 L 77/63 L Pulse Oximetry 06/20/21 19:50 06/20/21 20:00 06/20/21 20:20 Temperature 100.8 F H Pulse Rate 106 H 104 H 97 Respiratory Rate 20 20 Blood Pressure 75/58 L 75/64 L Pulse Oximetry 92 96 06/20/21 20:23 06/20/21 20:34 06/20/21 21:08 Temperature 100.8 F H Pulse Rate 100 98 Respiratory Rate 20 Blood Pressure 93/78 L Pulse Oximetry 06/20/21 22:00 06/20/21 22:01 06/20/21 23:16 Temperature Pulse Rate 98 98 97 Respiratory Rate 20 22 H Blood Pressure 93/78 L 93/78 L Pulse Oximetry 92 06/20/21 23:25 06/21/21 00:00 06/21/21 00:48 Temperature 98.8 F 98.8 F Pulse Rate 98 98 Respiratory Rate 22 H Blood Pressure 92/76 L Pulse Oximetry 94 95 06/21/21 01:00 06/21/21 01:05 06/21/21 01:30 Temperature Pulse Rate 97 93 Respiratory Rate 22 H 21 H Blood Pressure 150/100
--- NOTE | 2021-06-21 10:23 | WPDINTPN ---
Progress Note: A&P Assessment and Plan (1) Acute respiratory failure with hypoxia: Code(s): J96.01 - Acute respiratory failure with hypoxia Status: Acute Assessment and Plan: Secondary to extensive COVID pneumonia. Chest CTA on 05/29/2021 at outside facility was negative for pulmonary embolism. Currently sedated with propofol. Triglyceride level was normal Intubated on 06/01/2021 at outside facility. Currently on peep of 14 and 80% FiO2 in prone position. Patient does not tolerate supine position well and her oxygen requirement quickly goes up every time she has turned supine.. Continue daily prone ventilation for 18 hours as tolerated Patient was scheduled for tracheostomy but tracheostomy had to be canceled due to increased oxygen requirement and need for prone ventilation ABG reviewed Chest x-ray reviewed and shows persistent bilateral infiltrates 06/15 CTA IMPRESSION: 1. Diffuse COVID pneumonia, more confluence posteriorly. 2. Cardiomegaly. 3. No pulmonary emboli. Continue propofol , fentanyl and Versed infusion (2) Pneumonia due to COVID-19 virus: Code(s): U07.1 - COVID-19; J12.82 - Pneumonia due to coronavirus disease 2019 Status: Acute Assessment and Plan: Patient has reportedly had COVID like symptoms for 3 weeks and she tested positive on 05/29/2021. She has completed a 5 day course of azithromycin . Her procalcitonin was normal Status post Dexamethasone (started 05/29) She has completed a 5 day course of remdesivir, will repeat another 5 day course of remdesivir (initiated on 06/08/2021) She has completed a course of baricitinib (started 05/31). (3) Fever: Code(s): R50.9 - Fever, unspecified Status: Acute Assessment and Plan: Patient has been afebrile overnight Chest x-ray does not show any significant change, no significant change in respiratory secretions 06/19 Blood culture sent and are pending Sputum cultures pending UA suggest UTI and urine culture is negative Changed Milliagn catheter Continue IV cefepime (4) Shock: Code(s): R57.9 - Shock, unspecified Status: Acute Assessment and Plan: Multifactorial likely secondary to sedation hypovolemia and possibly sepsis Patient was given 1 L saline bolus overnight and currently on 6 mcg of Levophed I will give another 500 cc of saline bolus and also start her on normal saline at 100 mL/hour for next 10 hours Conservative IV fluids due to COVID Continue Levophed (5) MINNIE (acute kidney injury): Code(s): N17.9 - Acute kidney failure, unspecified Status: Acute Assessment and Plan: Creatinine increased to 1.4 today urine output also decreased Likely intravascular hypovolemia Patient was given IV fluid bolus overnight and will be given another fluid bolus today Another 1 L over 10 hours Monitor urine output creatinine electrolytes Hyperkalemia treated as below (6) Electrolyte abnormality: Code(s): E87.8 - Other disorders of electrolyte and fluid balance, not elsewhere classified Status: Acute Assessment and Plan: K is elevated to 6.1 Patient has been receiving potassium replacement for low potassium for last few days and also has worsening renal function Patient was given calcium insulin D50 and Kayexalate Recheck BMP later in the day (7) Mottled skin: Code(s): L81.9 - Disorder of pigmentation, unspecified Status: Acute Assessment and Plan: Plantar surface of both feet appears mottled. Bilateral dorsalis pedis are palpable though weak Arterial and venous Dopplers were reviewed Blood pressure adequate. Maintain map Normal CK (8) Elevated LFTs: Code(s): R79.89 - Other specified abnormal findings of blood chemistry Status: Acute Assessment and Plan: Most likely secondary to COVID-19 +/- rhabdomyolysis. AST and ALT have trended down since admission. Viral hepatitis panel was negative Right upper quadrant ultrasound show
--- NOTE | 2021-06-21 11:37 | PCDIET ---
ICU Rounding Note: Patient tolerating Vital 1.2 at 50mL/hr with 30mL water flush every 4 hours via PEG. Residuals 180mL and below. Suggested change to Nepro for lower potassium content. No changes ordered at this time. Last recorded weight is 107.4kg which is increased from last review. +I/O. Decreased urine output noted. Bowel Motility: BM x 1 today. Labs Reviewed: WBC (13.3), RBC (3.19), Hgb (9.5), Hct (31.0), Glu (133), BUN (45), Cr (1.4), K (6.1), Na (135), Mg (2.5) Meds Noted: Propofol (rate of 9.81mL/hr provides 259kcal per day), NS at 100mL/hr, Maxipime, Fentanyl, Synthroid, Reglan, Versed, Levophed, Protonix, Vasopressin, Calcium Gluconate Additional Notes: Medial neck with friction area. No documented pressure sores. Following daily in ICU rounds. Assessing/reassessing every Monday/Monday.
[2021-06-21 12:14] LABS: Glucose Point of Care 132 mg/dl (65-105)
[2021-06-21 13:19] LABS: Potassium 5.8 mmol/L (3.4-5.0)
[2021-06-21] MEDS: MIDAZOLAM 100MG/NS 100ML(*CRX) 100 MG/100 ML BAG IV CONT (13:48)
[2021-06-21 13:50] LABS: Iron 204 ug/dL (37-170)
[2021-06-21 13:59] LABS: Percent Iron Saturation 94 % (20-50)
--- NOTE | 2021-06-21 15:43 | PC.NURSE ---
PICC line found to have migrated out [address] Lara notified. Gilberto called to place new picc line.
[2021-06-21 16:18] LABS: Ferritin > 2000.00 ng/mL (11.1-264)
[2021-06-21] MEDS: ALBUMIN HUMAN 25% 25 GM/100 ML 100 ML IVPB ×2 (17:53→23:25)
[2021-06-21 18:22] LABS: Glucose Point of Care 137 mg/dl (65-105)
[2021-06-21 18:37] LABS: Anion Gap 6 mmol/L (8-16); Blood Urea Nitrogen 48 mg/dL (7-17); Calcium 7.2 mg/dL (8.4-10.2); Carbon Dioxide 26 mmol/L (22-30); Chloride 104 mmol/L (98-107); Estimated CRCL calculation 48 ml/min; Estimated Glomerular Filt Rate 45; Glucose 133 mg/dL (65-110); Potassium 5.4 mmol/L (3.4-5.0); Sodium 136 mmol/L (137-145)
[2021-06-21 23:42] LABS: Glucose Point of Care 161 mg/dl (65-105)
[2021-06-21 23:50] LABS: Alveolar/Arterial O2 Gradient 567.3 mmHg; Base Excess ABG -0.5 mEq/l (+/-2.0); Carboxyhemoglobin 0.3 % THb (0-2.0); Fractional Inspired Oxygen 100 %; HCO3 ABG 25.3 mEq/l (22.0-26.0); Methemoglobin ABG 0.3 %THb (0-1.5); Oxygen Content ABG 13.2 %vol (16.0-22.0); Oxygen Saturation ABG 97.2 % (95.0-100.0); Oxyhemoglobin 95.5 % THb (90.0-100.0); PCO2 ABG 46.9 mmHg (35.0-45.0); PO2 ABG 98.8 mmHg (80.0-100.0); PO2 FiO2 Ratio Arterial Blood 0.99 %; Reduced Hemoglobin 3.9 %THb (0-5.0); Total Hemoglobin 9.7 g/dL (12.0-18.0)
[2021-06-21 23:51] LABS: Device VENTILATOR; Modified Allen's Test Unable to perform; Site Drawn LEFT RADIAL
[2021-06-21 23:52] LABS: Arterial Blood Gas PEEP 14 cmH2O; Arterial Blood Gas Tidal Volume 330 ml; Arterial Blood Gas Vent Mode CMV; Arterial Blood Gas Ventilator rate 20 /MIN
[2021-06-22] VITALS (14 sets, daily range): BP systolic 100–114; BP diastolic 72–83; PULSE 116–131; RESP 25–29; TEMP 36.6–37.6; O2SAT 89–95
[2021-06-22] MEDS: FENTANYL 2,500MCG/NS250ML(*CRX 2,500 MCG/250 ML BAG 20 MCG IV CONT (02:15)
[2021-06-22] MEDS: NOREPINEPHRINE 8 MG/D5W 250 ML 8 MG/250 ML BAG 5.63 MG IV CONT (02:18)
[2021-06-22 04:35] LABS: Alveolar/Arterial O2 Gradient 511.9 mmHg; Carboxyhemoglobin 0.3 % THb (0-2.0); Fractional Inspired Oxygen 90 %; HCO3 ABG 24.8 mEq/l (22.0-26.0); Methemoglobin ABG 0.3 %THb (0-1.5); Oxygen Saturation ABG 95.6 % (95.0-100.0); Oxyhemoglobin 94.1 % THb (90.0-100.0); PCO2 ABG 46.2 mmHg (35.0-45.0); PO2 ABG 82.5 mmHg (80.0-100.0); PO2 FiO2 Ratio Arterial Blood 0.92 %; Reduced Hemoglobin 5.3 %THb (0-5.0); Total Hemoglobin 10.5 g/dL (12.0-18.0); pH ABG 7.348 (7.350-7.450)
[2021-06-22 04:36] LABS: Arterial Blood Gas PEEP 14 cmH2O; Arterial Blood Gas Vent Mode CMV; Arterial Blood Gas Ventilator rate 20 /MIN; Device VENTILATOR; Modified Allen's Test Pass; Site Drawn RIGHT RADIAL
[2021-06-22 04:37] LABS: Arterial Blood Gas Tidal Volume 330 ml
[2021-06-22 05:05] LABS: Hematocrit 26.2 % (37.0-47.0); Hemoglobin 8.1 g/dL (12.0-15.0); Mean Corpuscular HGB Conc 30.9 g/dl (32-36); Mean Corpuscular Hemoglobin 29.8 pg (26-34); Mean Corpuscular Volume 96.3 fl (80-100); Mean Platelet Volume 11.5 fl (7.4-10.4); Platelet Count Result 165 k/mm3 (150-375); Red Blood Count 2.72 M/mm3 (4.2-5.4); Red Cell Distribution Width 14.6 % (11.5-14.5); White Blood Count 10.8 K/mm3 (4.5-10.0)
[2021-06-22] MEDS: ALBUMIN HUMAN 25% 25 GM/100 ML 100 ML IVPB (05:33)
[2021-06-22] MEDS: CENTRAL LINE FLUSH 10 ML IV PUSH ×2 (05:34)
[2021-06-22] MEDS: LEVOTHYROXINE SODIUM INJ 100 MCG/5 ML VIAL 12.5 MCG IV PUSH (05:35)
[2021-06-22] MEDS: METOCLOPRAMIDE HCL 10 MG/10 ML SOLN UDC FEED TUBE (05:35)
[2021-06-22 05:57] LABS: Alanine Aminotransferase 2178 U/L (4-35); Albumin Level 3.7 g/dL (3.5-5.1); Alkaline Phosphatase 99 U/L (38-126); Anion Gap 8 mmol/L (8-16); Bilirubin,Total 2.6 mg/dL (0.2-1.3); Blood Urea Nitrogen 65 mg/dL (7-17); Calcium 8.3 mg/dL (8.4-10.2); Carbon Dioxide 29 mmol/L (22-30); Chloride 99 mmol/L (98-107); Estimated CRCL calculation 52 ml/min; Estimated Glomerular Filt Rate 49; Glucose 132 mg/dL (65-110); Potassium 5.3 mmol/L (3.4-5.0); Sodium 136 mmol/L (137-145)
[2021-06-22 06:29] LABS: IFOB Positive Control Positive; Immunochemical Fecal Occult Bl Negative (N)
[2021-06-22] MEDS: MIDAZOLAM 100MG/NS 100ML(*CRX) 100 MG/100 ML BAG 6 MG IV CONT (06:31)
[2021-06-22 07:41] LABS: Aspartate Amino Transferase 2088 U/L (14-36)
[2021-06-22] MEDS: ALBUTEROL SULFATE NEB 2.5 MG/0.5 ML INH 10 MG INHALATION (08:10)
[2021-06-22] MEDS: DEXTROSE 50% 25 GM/50 ML SYRINGE IV PUSH (08:38)
[2021-06-22] MEDS: INSULIN HUMAN REGULAR (*BKC) 100 UNITS/ML 10 UNITS IV PUSH (08:39)
[2021-06-22] MEDS: SODIUM POLYSTYRENE SULFONONATE 15 GM/60 ML BTL 30 GM PO (08:39)
[2021-06-22] MEDS: SODIUM BICARBONATE 8.4% 50 MEQ/50 ML SYRINGE IV PUSH (08:39)
[2021-06-22] MEDS: ENOXAPARIN 40 MG/0.4 ML SYRINGE SUB-Q (08:40)
[2021-06-22] MEDS: PANTOPRAZOLE SODIUM IV 40 MG VIAL IV PUSH (08:40)
[2021-06-22] MEDS: MINERAL OIL/WHITE PETROLATUM OINTMENT 1 APPLIC EACH EYE (08:40)
--- NOTE | 2021-06-22 10:44 | PCDIET ---
Nutrition Follow-Up Complete: Nutrition Diagnosis: Inadequate oral intake related to intubation as evidenced by NPO Nutrition Goal: Meet estimated nutritional needs Goal not met. Tube feedings currently on hold for elevated residuals. Overall status declining. Family meeting to be arranged. Last recorded weight is 107.1 kg which is stable with last review. Patient had 550mL urine output 06/21/21. Bowel Motility: BM x 1 today. Labs Reviewed: WBC (10.8), RBC (2.72), Hgb(8.1), Hct (26.2), Glu (132), BUN (65), Cr (1.1), K (5.3), Na (136), Ca (8.3) Meds Noted: Albumin, Fentanyl, Synthroid, Cefepime, Reglan, Versed, Protonix, Kayexalate Additional Notes: Medial neck with friction area. Will continue to monitor with same goal. Nutrition Monitoring and Evaluation: Follow up every Monday/Monday.
--- NOTE | 2021-06-22 10:58 | P.PNINT_ITS ---
Progress Note: A&P Assessment and Plan (1) Acute respiratory failure with hypoxia: Code(s): J96.01 - Acute respiratory failure with hypoxia Status: Acute Assessment and Plan: Secondary to extensive COVID pneumonia. Chest CTA on 05/29/2021 at outside facility was negative for pulmonary embolism. Currently sedated with propofol. Triglyceride level was normal Intubated on 06/01/2021 at outside facility. Currently on peep of 14 and 90% FiO2 in prone position. Patient does not tolerate supine position well and her oxygen requirement quickly goes up every time she has turned supine.. Continue daily prone ventilation for 18 hours as tolerated Patient was scheduled for tracheostomy but tracheostomy had to be canceled due to increased oxygen requirement and need for prone ventilation ABG reviewed Chest x-ray reviewed and shows persistent bilateral infiltrates 06/15 CTA IMPRESSION: 1. Diffuse COVID pneumonia, more confluence posteriorly. 2. Cardiomegaly. 3. No pulmonary emboli. Continue propofol , fentanyl and Versed infusion (2) Pneumonia due to COVID-19 virus: Code(s): U07.1 - COVID-19; J12.82 - Pneumonia due to coronavirus disease 2019 Status: Acute Assessment and Plan: Patient has reportedly had COVID like symptoms for 3 weeks and she tested positive on 05/29/2021. She has completed a 5 day course of azithromycin . Her procalcitonin was normal Status post Dexamethasone (started 05/29) She has completed a 5 day course of remdesivir, will repeat another 5 day course of remdesivir (initiated on 06/08/2021) She has completed a course of baricitinib (started 05/31). (3) Fever: Code(s): R50.9 - Fever, unspecified Status: Acute Assessment and Plan: Patient has been afebrile overnight Chest x-ray does not show any significant change, no significant change in respiratory secretions 06/19 Blood culture sent and are pending Sputum cultures pending UA suggest UTI and urine culture is negative Changed Milligan catheter Continue IV cefepime (4) Shock: Code(s): R57.9 - Shock, unspecified Status: Acute Assessment and Plan: Multifactorial likely secondary to sedation hypovolemia and possibly sepsis Patient was given 1 L saline bolus overnight and currently on 6 mcg of Levophed I will give another 500 cc of saline bolus and also start her on normal saline at 100 mL/hour for next 10 hours Conservative IV fluids due to COVID Continue Levophed (5) MINNIE (acute kidney injury): Code(s): N17.9 - Acute kidney failure, unspecified Status: Acute Assessment and Plan: Creatinine increased to 1.4 today urine output also decreased Likely intravascular hypovolemia Patient was given IV fluid bolus overnight and will be given another fluid bolus today Another 1 L over 10 hours Monitor urine output creatinine electrolytes Hyperkalemia treated as below (6) Electrolyte abnormality: Code(s): E87.8 - Other disorders of electrolyte and fluid balance, not elsewhere classified Status: Acute Assessment and Plan: K is elevated to 6.1 Patient has been receiving potassium replacement for low potassium for last few days and also has worsening renal function Patient was given calcium insulin D50 and Kayexalate Recheck BMP later in the day (7) Mottled skin: Code(s): L81.9 - Disorder of pigmentation, unspecified Status: Acute Assessment and Plan: Plantar surface of both feet appears mottled. Bilateral dorsalis pedis are palpable though weak Arterial and venous Dopplers were review
[2021-06-22 11:20] LABS: Hepatitis B Surface Antigen Negative (Negative)
[2021-06-22 11:27] LABS: HAV RESULT Negative (Negative); Hepatitis B Core IgM Result Negative (Negative)
[2021-06-22 11:37] LABS: Hepatitis C Virus Antibody Negative (Negative)
--- NOTE | 2021-06-22 13:45 | P.DN_ITS ---
Discharge Summary Date and Time Date of : 06/22/21 Time of : 10:54 Provider Pronounced By: Landon Jimenez RN and Escobar Kemp RN Probable Cause of Probable Cause of : (1)J96.01 - Acute respiratory failure with hypoxia Status: Acute (2) Pneumonia due to COVID-19 virus: Code(s): U07.1 - COVID-19; J12.82 - Pneumonia due to coronavirus disease 2019 Status: Acute (3) Fever: Code(s): R50.9 - Fever, unspecified Status: Acute (4) Elevated LFTs: Code(s): (5) Hypothyroidism: Code(s): E03.9 - Hypothyroidism, unspecified Status: Acute (6) Mottled skin: Code(s): L81.9 - Disorder of pigmentation, unspecified Status: Acute Plantar surface of both feet appears mottled. (7) Electrolyte abnormality: Code(s): E87.8 - Other disorders of electrolyte and fluid balance, not elsewhere classified Status: Acute Summary Hospital Course: 70-year-old female with hypertension, hypothyroidism, breast cancer, and anxiety who is being directly admitted to the intensive care unit from [facility] for further treatment of acute hypoxic respiratory failure secondary to COVID-19 pneumonia. Transferred from [facility] for higher level of care for covid. Pt intubated on 06/01/2021 at outside facility, slow to improve 06/15/2021 -PEG tube placed, considerations of a Tracheostomy. Discussed with ICU and GI MDs. From ICU note on 06/22/2021 and day of expiration- Patient remains intubated on 14 of PEEP and 90% FiO2. Patient in prone position, sedated with fentanyl 200 mcg/hr and Versed 6 mg/hr infusions. Afebrile, adequate urine. Not tolerating tube feeds. Potassium was elevated 5.3, significant elevation of LFTs. Had to be restarted on Levophed as she was dropping her blood pressure. -patient bradycardic and then asystole. Time of 10:54 a.m Additional Data Confirmation of as documented by pronouncing clinician: Pupillary Reflex, Palpable Pulses, Response to Stimuli, Heart Tones and Breath Sounds Name of Provider Notified: Dr. Brice Time Provider Notified: 10:55 Provider Requests Autopsy: No Family Requests Autopsy: No Generator Technician Notified: Yes Date [facility] Notified of : 06/22/21 Time [facility] Notified of : 10:57
== END 2021-06-22 10:54 | disposition expired | DRG 207 ==
PROVIDERS: Internal Medicine; Internal Medicine Gastroenterology; Physician Assistant; Admitting Provider Internal Medicine; Visit Provider Hospitalist
PROC: 0DH63UZ Insertion of Feeding Device into Stomach, Percutaneous Approach (ICD-10-PCS; CPT 43246; principal; 2021-06-15 14:00)
DX: U07.1 COVID-19 (principal); J12.82 Pneumonia due to coronavirus disease 2019; J96.01 Acute respiratory failure with hypoxia; M62.82 Rhabdomyolysis; E87.0 Hyperosmolality and hypernatremia; N39.0 Urinary tract infection, site not specified; Z68.41 Body mass index [BMI] 40.0-44.9, adult; R57.9 Shock, unspecified; N17.9 Acute kidney failure, unspecified; I46.9 Cardiac arrest, cause unspecified; I10 Essential (primary) hypertension; E03.9 Hypothyroidism, unspecified; Z85.3 Personal history of malignant neoplasm of breast; F41.9 Anxiety disorder, unspecified; F32.A Depression, unspecified; R79.89 Other specified abnormal findings of blood chemistry; R94.31 Abnormal electrocardiogram [ECG] [EKG]; E86.0 Dehydration; K76.0 Fatty (change of) liver, not elsewhere classified; L81.9 Disorder of pigmentation, unspecified; Z66 Do not resuscitate; Z53.09 Procedure and treatment not carried out because of other contraindication; E87.6 Hypokalemia; E87.8 Other disorders of electrolyte and fluid balance, not elsewhere classified; D64.9 Anemia, unspecified; E87.5 Hyperkalemia; E66.9 Obesity, unspecified; E86.1 Hypovolemia; R63.39 Other feeding difficulties
CPT/HCPCS: 36415; 36569; 36600; 43246; 71045; 71275; 74018; 74019; 76705; 80048; 80053; 80074; 80076; 81001; 82274; 82375; 82550; 82565; 82728; 82805; 82948; 83050; 83540; 83550; 83605; 83615; 83735; 84100; 84132; 84145; 84443; 84460; 84478; 85025; 85027; 85380; 85610; 85730; 86140; 87040; 87070; 87086; 87088; 87205; 93005; 93923; 93970; 94002; 94003; 94640; A9270; C1751; C9113; J0456; J0610; J0692; J1100; J1120; J1650; J1815; J1940; J2250; J2704; J3010; J3480; J7030; J7040; J7060; P9047; Q9967